=== PATIENT | female | born 1955 | race Caucasian/White ===

== ENCOUNTER 2020-05-10 11:11 | Emergency (ER) | payer MEDICAID, OTHER ==
--- OUTSIDE RECORDS SUMMARY | 2020-05-10 11:14 | XMS REPORT | Continuity of Care Document ---
:1955 Author Organization [facility] t Address [address] [place] [place] [address] Care Team Providers Name Role Phone Radiology Attending Clinician Unavailable Mark Hale MD Attending Clinician Dania HEART Attending Clinician Problems This patient has no known problems. Allergies, Adverse Reactions, Alerts This patient has no known allergies or adverse reactions. Medications This patient has no known medications. Procedures This patient has no known procedures. Encounters Start End Encounter Admission Attending Care Care Encounter Source Date/Time Date/Time Type Type Clinicians Facility Department ID 2020-03-28 2020-03-28 [facility] Radiology [facility] [id number] 19:24:00 23:59:00 Encounter SPECIALTY [id number] CARE [id number] CENTER AT [id number] [address] 2019-12-20 2020-01-23 Telemedicmitra Hale [facility] [id number] 08:48:31 15:03:17 ne Visit Nehemiah Flores [facility] [id number] [facility] [id number] CENTER [id number] [facility] 2020-01-23 2020-01-23 Telemedici Norberto [facility] [id number] 07:56:45 08:11:45 ne Visit SOLOMON abbott [id number] [facility] [id number] CENTER AT [phone] [address] Results This patient has no known results.
--- OUTSIDE RECORDS SUMMARY | 2020-05-10 11:14 | XMS REPORT | Summary of Care ---
:1955 Author Organization [facility] Address [address] [place] [id number] Care Team Providers Name Role Phone Seng Junior MD Unavailable Unavailable Mark Rebollar MD Insurance Hmo Pcp, Does Not Have A Primary Care Provider Reason for Referral Radiology Services (Routine) Status Reason Specialty Diagnoses / Referred By Referred To Procedures Contact Contact Closed Diagnostic Diagnoses Malignant neoplasm of left breast in female, estrogen receptor positive, unspecified site of breast Bridger, Lynn Radiology Procedures BI SCREENING MAMMOGRAM RIGHT M, 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 [address] [place] [address] Reason for Visit Radiology Services (Routine) Status Reason Specialty Diagnoses / Referred By Referred To Procedures Contact Contact Closed Diagnostic Diagnoses Malignant neoplasm of left breast in female, estrogen receptor positive, unspecified site of breast Bridger, Lynn Radiology Procedures BI SCREENING MAMMOGRAM RIGHT M, 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 [address] [place] [address] Encounter Details Date Type Department Care Team Description 03/28/2020 Hospital Encounter [facility] Radiology [facility] Breast [address] [facility] Imaging [place], [place] [id number] [address] [place] [address] Allergies Active Allergy Reactions Severity Noted Date Comments Codeine Rash 08/31/2009 Morphine Itching 06/18/2011 With morphine p ump documented as of this encounter (statuses as of 03/29/2020) Medications Medication Sig Dispensed Refills Start Date End Date Status fluticasone 50 Use 1 Holden in 16 g 2 06/04/2018 Active mcg/actuation nasal each nostril 2 sprayIndications: COPD (two) times exacerbation daily. albuterol (PROAIR HFA) Inhale 2 Puffs 8.5 g 2 01/11/2019 Active 90 mcg/actuation every 4 (four) inhalerIndications: hours as needed COPD exacerbation for Wheezing or Shortness of Breath. magnesium aspartate/vit Take by mouth. 0 Active B6/Zn (ZINC MAGNESIUM ASPARTATE ORAL) cyclobenzaprine 7.5 mg 0 04/06/2019 Active tablet Cholecalciferol, Take by mouth. 0 Active Vitamin D3, (VITAMIN D3) 5,000 unit tablet Cyanocobalamin (VITAMIN Take by mouth. 0 Active B-12) 1,000 mcg tablet zolpidem 10 mg Take 1 tablet by 30 tablet 5 06/28/2019 Active tabletIndications: mouth at bedtime. Anxiety diazePAM 2 mg Take 1 tablet by 10 tablet 0 06/28/2019 Active tabletIndications: mouth 2 (two) Anxiety times daily as needed for Anxiety. meloxicam 7.5 mg Take 1 tablet by 60 tablet 2 09/23/2019 Active tabletIndications: SI mouth 2 (two) (sacroiliac) joint times daily as dysfunction needed (Pain). ibuprofen (MOTRIN ORAL) Take 400 mg by 0 Active mouth. documented as of this encounter (statuses as of 03/29/2020) Active Problems Problem Noted Date SI (sacroiliac) joint dysfunction 09/26/2019 Overview: Added automatically from request for eric ellington [id number] Cervical spondylosis with radiculopathy 02/08/2019 Overview: Added automatically from request for eric ellington [id number] Anxiety 10/22/2018 Chronic fatigue 10/22/2018 History of breast cancer 04/23/2018 Cervical radiculopathy due to osteoarthritis of spine 03/26/2018 Overview: Added automatically from request for eric ellington [id number] Cervical radiculopathy 12/11/2017 Overview: Added automatically from request for eric ellington [id number] S/P total hip arthroplasty 03/31/2017 Left hip pain 02/26/2017 Overview: Added automatically from request for eric ellington [id number] Hip pain, acute, left 08/13/2016 S/P orthopedic surgery, follow-up exam 08/13/2016 Greater trochanteric bursitis of left hip 08/13/2016 Cataracts, both eyes 12/13/2015 Dry eye OU 12/13/2015 Lumbosacral spondylosis without myelopathy 07/31/2014 Sacroiliac joint dysfunction of both sides 07/03/2014 Myofacial muscle pain 07/03/2014 Acquired absence of breast and nipple 10/19/2012 Breast cancer 09/28/2012 Fracture, cause unspecified(E887) 11/05/2007 Overview: Left leg and back documented as of this encounter (statuses as of 03/29/2020) Immunizations Name Administration Dates Next Due Influenza Virus Vaccine Quad IM 3+ YRS 08/18/2018 documented as of this encounter Social History Tobacco Use Types Packs/Day Years Used Date Former Smoker Cigarettes 81 Quit: 09/21/19 13 Smokeless Tobacco: Never Used Alcohol Use Drinks/Week oz/Week Comments Yes only once weekly Sex Assigned at Date Recorded Not on file Job Start Date Occupation Industry Not on file Not on file Not on file Travel History Travel Start Travel End No recent travel history available. COVID-19 Exposure Response Date Recorded In the last month, have you been in contact with No / Unsure 03/28/2020 7:19 PM CDT someone who was confirmed or suspected to have Coronavirus / COVID-19? documented as of this encounter Last Filed Vital Signs Not on filedocumented in this encounter Plan of Treatment Date Type Specialty Care Team Description 07/26/2020 Office Visit Orthopedic Surgery Gera Mi, SLY [address] [place] [address] [phone] 11/30/2020 Office Visit Oncology Christine Fontanez, TRI [address] [place] [address] 77 [phone] Name Type Priority Associated Diagnoses Date/Ti me BI SCREENING MAMMOGRAM IMAGING Routine Malignant neoplasm of 03/28/2020 7:47 PM RIGHT left breast in female, CDT estrogen receptor positive, unspecified site of breast Name Type Priority Associated Diagnoses Order S chedule BI SCREENING MAMMOGRAM IMAGING Routine Malignant neoplasm of 1 Occurrences starting RIGHT left breast in female, 03/28 until estrogen receptor 03/28/2020 positive, unspecified site of breast Health Maintenance Due Date Last Done Comments HEPATITIS C (HCV) SCREEN 1955 PNEUMOCOCCAL 0-64 YEARS COMBINED 1962 SERIES (1 of 3 - PCV13) DTaP,Tdap,and Td Vaccines (1 - 12/31/1967 Tdap) Zoster Recombinant Vaccine 2006 (SHINGRIX) (1 of 2) PAP SMEAR 08/12/2010 08/12/2007, 11/25/2002 LUNG CANCER SCREEN: Recommended 04/16/2016 04/16/2015 for age 55-80 with 30 + pack year history Breast Cancer Screening 01/14/2020 01/13/2019, 12/18/2017, (MAMMOGRAM) 10/20/2016, Additional history exists INFLUENZA VACCINE (#1) 2020 08/18/2018 Depression Screening 10/19/2020 10/19/2019 COLONOSCOPY 09/30/2024 09/30/2014 documented as of this encounter Implants Implanted Type Area Commercial Construction Project Manager Device Shelf Model / Identifier Expiration Serial / Date Lot Breast Implant, Allergan Natrelle Smooth Silicone High Profile #20-350 - [id number] BREAST Left: Allergan 11/16/2016 20-350 / Implanted: Qty: 1 on 04/18/2013 by Rose Lee MD at [facility] Breast [id number] / Tissue Front Desk Team Member, [place] Tall Height Cont our Profile Siltex #[id number] - [id number] SUPERINTENDENT GENERATING PLANT Left: [place] [employer] 09/13/2016 [id number] / Implanted: Qty: 1 on 12/13/2012 by Faustina Avina MD at [facility] Chest [id number] / [id number] Femoral Stem Taperloc Porous Coated 14x1 48mm Standard Offset Type 1 Briana #[id number] - S0 Femoral Left: Hip Briana 11/07/2026 [id number] / Implanted: Qty: 1 on 03/31/2017 by Carlos Hickey MD at [facility] Stem 0 / [id number] Head Biolox Delta Biomet #650-1055 - S0 Head Left: Hip Biomet 12/23/2026 650- 1055 / Implanted: Qty: 1 on 03/31/2017 by Carlos Hickey MD at [facility] 0 / [id number] Insert, [place] Trident 0 X3 28mm Id #[id number] - S0 Insert Left: Hip [place] 07/24/2021 [id number] / Implanted: Qty: 1 on 03/31/2017 by Carlos Hickey MD at [facility] 0 / [id number] Screw, Synthes 7.3mm [place] 16mm Thrd/85mm #208.885 - [id number] REW Left: Hip Synthes 04/21/2026 208.885 / Implanted: Qty: 2 on 04/21/2016 by Michelle Eng DO at [facility] 0000 / [id number] Screw, Synthes 7.3mm [place] 16mm Thrd/90mm #208.890 - [id number] SCRE W Left: Hip Synthes 04/21/2026 208.890 / Implanted: Qty: 1 on 04/21/2016 by Michelle Eng DO at [facility] [id number] / [id number] Screw, [place] 6.5 Cancellous Bone 30mm #[id number] - S0 SCREW Left: Hip Genet 12/23/2021 [id number] / Implanted: Qty: 1 on 03/31/2017 by Carlos Hickey MD at [facility] 0 / [id number] Screw, [place] 6.5 Cancellous Bone 30mm #[id number] - S0 SCREW Left: Hip Genet 12/11/[id number] / Implanted: Qty: 1 on 03/31/2017 by Carlos Hickey MD at [facility] 0 / [id number] Shell, Genet Primary Tritanium Param Cluster #[id number] - S0 S hell Left: Hip [place] 10/08/2021 [id number] / Implanted: Qty: 1 on 03/31/2017 by Carlos Hickey MD at [facility] 0 / [id number] Washer, Synthes 13.0 Mm #219.99 #219.990 - [id number] WASHER Left: Hip Synthes 04/21/2026 219.990 / Implanted: Qty: 1 on 04/21/2016 by Michelle Eng, at [facility] 000 / 0000 Adapter Taper [place] Biomet #650-1066 - S0 Left: Hip Bio met 10/22/2026 650-1066 / Implanted: Qty: 1 on 03/31/2017 by Carlos Hickey MD at [facility] 0 / [id number] documented as of this encounter Results Not on filedocumented in this encounter Visit Diagnoses Diagnosis Malignant neoplasm of left breast in fem nathanael, estrogen receptor positive, unspecified site of breast documented in this encounter Insurance Payer Benefit Plan / Subscriber ID Effective Dates Phone Addre ss Type Group [facility] xxxxxxxxx 2019-Present Medicaid COMM PLAN - PLUS MANAGED MEDICAID documented as of this encounter Advance Directives Type Date Recorded 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
--- NOTE | 2020-05-10 11:38 | EDPHYS ---
Physician Documentation [facility] Name: Cindy Malin Age: 64 yrs Sex: Female : 1955 Arrival Date: 05/10/2020 Time: 11:13 Bed 18 Private MD: ED Physician Pancho Saldaña HPI: 05/10 11:33 This 64 yrs old Female presents to ER via Wheelchair with complaints of Back jr8 Pain. 11:33 The patient presents with pain that is acute, with no known mechanism of injury. The jr8 symptoms are located in the low back. Onset: The symptoms/episode began/occurred acutely, today. The pain does not radiate. Associated signs and symptoms: The patient has no apparent associated signs or symptoms. The problem was sustained from unknown cause. Modifying factors: The patient symptoms are alleviated by rest, specific position, sitting, the patient symptoms are aggravated by standing, walking. Severity of symptoms: At their worst the symptoms were moderate, in the emergency department the symptoms are unchanged. The patient has not experienced similar symptoms in the past. The patient has not recently seen a physician. 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 Started to have low back pain today that is not going away. Denies trauma or direct injury to back . Historical: - Allergies: 11:29 Codeine; sv - PMHx: 11:29 Back pain; Breast cancer; sv - PSHx: 11:29 Knee surgery; left hip; sv - Immunization history:: Adult Immunizations up to date. - Social history:: Smoking status: Patient reports the use of cigarette tobacco products, smokes one pack cigarettes per day. ROS: 11:33 Eyes: Negative for injury, pain, redness, and discharge, ENT: Negative for injury, jr8 pain, and discharge, Neck: Negative for injury, pain, and swelling, Cardiovascular: Negative for chest pain, palpitations, and edema, Respiratory: Negative for shortness of breath, cough, wheezing, and pleuritic chest pain, Abdomen/GI: Negative for abdominal pain, nausea, vomiting, diarrhea, and constipation, MS/Extremity: Negative for injury and deformity, Skin: Negative for injury, rash, and discoloration, Neuro: Negative for headache, weakness, numbness, tingling, and seizure. 11:33 Back: Positive for pain at rest, pain with movement, Negative for radiated pain. Exam: 11:33 Eyes: Pupils equal round and reactive to light, extra-ocular motions intact. Lids and jr8 lashes normal. Conjunctiva and sclera are non-icteric and not injected. Cornea within normal limits. Periorbital areas with no swelling, redness, or edema. ENT: Nares patent. No nasal discharge, no septal abnormalities noted. Tympanic membranes are normal and external auditory canals are clear. Oropharynx with no redness, swelling, or masses, exudates, or evidence of obstruction, uvula midline. Mucous membranes moist. Neck: Trachea midline, no thyromegaly or masses palpated, and no cervical lymphadenopathy. Supple, full range of motion without nuchal rigidity, or vertebral point tenderness. No Meningismus. Cardiovascular: Regular rate and rhythm with a normal S1 and S2. No gallops, murmurs, or rubs. Normal PMI, no JVD. No pulse deficits. Respiratory: Lungs have equal breath sounds bilaterally, clear to auscultation and percussion. No rales, rhonchi or wheezes noted. No increased work of breathing, no retractions or nasal flaring. Abdomen/GI: Soft, non-tender, with normal bowel sounds. No distension or tympany. No guarding or rebound. No evidence of tenderness throughout. Skin: Warm, dry with normal turgor. Normal color with no rashes, no lesions, and no evidence of cellulitis. MS/ Extremity: Pulses equal, no cyanosis. Neurovascular intact. Full, normal range of motion. Neuro: Awake and alert, GCS 15, oriented to person, place, time, and situation. Cranial nerves II-XII grossly intact. Motor strength 5/5 in all extremities. Sensory grossly intact. Cerebellar exam normal. Normal gait. 11:33 Back: pain, that is moderate, of the lumbar area and right low back, ROM is painful, normal spinal alignment noted, CVA tenderness, is absent, vertebral tenderness, is not appreciated, muscle spasm, is appreciated in the left low back and right low back. Vital Signs: 11:27 BP 152 / 96; Pulse 82; Resp 20; Temp 98.3; Pulse Ox 98% ; Weight 48.53 kg; Height 5 ft. sv 0 in. (152.40 cm); Pain 7/10; 11:27 Body Mass Index 20.90 (48.53 kg, 152.40 cm) sv MDM: 11:23 Patient medically screened. jr8 11:33 Data reviewed: vital signs, nurses notes, and as a result, I will discharge patient. jr8 Data interpreted: Pulse oximetry: on room air is 98 %. Interpretation: normal. Counseling: I had a detailed discussion with the patient and/or guardian regarding: the historical points, exam findings, and any diagnostic results supporting the discharge/admit diagnosis, the need for outpatient follow up, a orthopedic surgeon, to return to the emergency department if symptoms worsen or persist or if there are any questions or concerns that arise at home. ED course: Discussed with patient that we will put her on medication for low back. Patient stated that she has been having problems with left shoulder for a month as well. Directed her to ortho for further evaluation of that since it is not an emergent problem today . Administered Medications: 11:52 Drug: TORadol - Ketorolac 15 mg Route: IM; Site: right deltoid; sv 12:19 Follow up: Response: No adverse reaction sv Disposition: 18:36 Co-signature as Attending Physician, Pancho Saldaña MD. rn Disposition: 05/10/20 11:37 Discharged to Home. Impression: Low back pain, Muscle spasm of back. - Condition is Stable. - Discharge Instructions: Back Pain, Adult, Musculoskeletal Pain, Heat Therapy. - Prescriptions for Ibuprofen 800 mg Oral Tablet - take 1 tablet by ORAL route every 12 hours As needed take with food; 20 tablet. Robaxin 500 mg Oral Tablet - take 2 tablet by ORAL route every 6 hours As needed; 40 tablet. Medrol (Balaji) 4 mg Oral Tablets, Dose Pack - take 1 tablet by ORAL route as directed - follow package instructions; 1 packet. - Medication Reconciliation Form, Thank You Letter, Antibiotic Education, Prescription Opioid Use form. - Follow up: Jason Acuna MD; When: 5 - 6 days; Reason: Recheck today's complaints, Continuance of care, Re-evaluation by your physician. - Problem is new. - Symptoms have improved. Signatures: Jasmyn Lazo RN RN sv Pancho Saldaña MD MD rn Roszak, Josh, PA PA jr8 Corrections: (The following items were deleted from the chart) 12:20 11:37 05/10/2020 11:37 Discharged to Home. Impression: Low back pain; Muscle spasm of sv back. Condition is Stable. Forms are Medication Reconciliation Form, Thank You Letter, Antibiotic Education, Prescription Opioid Use. Follow up: Jason Acuna; When: 5 - 6 days; Reason: Recheck today's complaints, Continuance of care, Re-evaluation by your physician. Problem is new. Symptoms have improved. jr8
--- NOTE | 2020-05-10 11:38 | ER ---
Nurse's Notes [facility] Name: Cindy Malin Age: 64 yrs Sex: Female : 1955 Arrival Date: 05/10/2020 Time: 11:13 Bed 18 Private MD: Diagnosis: Low back pain;Muscle spasm of back Presentation: 05/10 11:27 Chief complaint: Patient states: left shoulder pain x 1 month after a fall and Back sv pain x1 day, denies recent falls. No meds taken. Coronavirus screen: Client denies travel out of the [place] in the last 14 days. At this time, the client does not indicate any symptoms associated with coronavirus-19. Ebola Screen: No symptoms or risks identified at this time. Initial Sepsis Screen: Does the patient meet any 2 criteria? No. Patient's initial sepsis screen is negative. Does the patient have a suspected source of infection? No. Patient's initial sepsis screen is negative. Risk Assessment: Do you want to hurt yourself or someone else? Patient reports no desire to harm self or others. Onset of symptoms was May 09, 2020. 11: Method Of Arrival: Wheelchair sv 11: Acuity: SHAMA 4 sv Triage Assessment: : General: Appears in no apparent distress. uncomfortable, slender, Behavior is calm, sv cooperative, appropriate for age. Pain: Complains of pain in back Pain currently is 7 out of 10 on a pain scale. Quality of pain is described as pressure, Pain began 1 day ago. Is continuous. Neuro: Level of Consciousness is awake, alert, obeys commands, Oriented to person, place, time, situation, Moves all extremities. Full function. Respiratory: Airway is patent Respiratory effort is even, unlabored, Respiratory pattern is regular, symmetrical. Derm: Skin is pink, warm \T\ dry. Musculoskeletal: Range of motion: limited in left shoulder. Historical: - Allergies: 11: Codeine; sv - PMHx: 11: Back pain; Breast cancer; sv - PSHx: 11: Knee surgery; left hip; sv - Immunization history:: Adult Immunizations up to date. - Social history:: Smoking status: Patient reports the use of cigarette tobacco products, smokes one pack cigarettes per day. Screenin:30 Abuse screen: Denies threats or abuse. Denies injuries from another. Nutritional sv screening: No deficits noted. Tuberculosis screening: No symptoms or risk factors identified. Fall Risk Fall in past 12 months (25 points). No secondary diagnosis (0 pts). No IV (0 pts). Ambulatory Aid- None/Bed Rest/Nurse Assist (0 pts). Gait- Normal/Bed Rest/Wheelchair (0 pts) Mental Status- Oriented to own ability (0 pts). Total Mathis Fall Scale indicates Low Risk Score (25-44 pts). Fall prevention measures have been instituted. Placed close to Nursing Station Frequent Obs/Assesments occuring As available Patient and Family Educated on Fall Prevention Program and strategies. Assessment: 12:19 Reassessment: Patient appears in no apparent distress at this time. Patient and/or sv family updated on plan of care and expected duration. Pain level reassessed. Patient is alert, oriented x 3, equal unlabored respirations, skin warm/dry/pink. Vital Signs: 11:27 BP 152 / 96; Pulse 82; Resp 20; Temp 98.3; Pulse Ox 98% ; Weight 48.53 kg; Height 5 ft. sv 0 in. (152.40 cm); Pain 7/10; 11:27 Body Mass Index 20.90 (48.53 kg, 152.40 cm) sv ED Course: 11:13 Patient arrived in ED. as 11:20 Jasmyn Lazo, NARDA is Primary Nurse. sv 11:20 Dillon Ring PA is PHCP. jr8 11:20 Pancho Saldaña MD is Attending Physician. jr8 11:28 Triage completed. sv 11:29 Arm band placed on. sv 11:30 Nurse Practitioner and/or Physician Field Control Inspector to see patient. sv 11:31 Patient has correct armband on for positive identification. Call light in reach. Pulse sv ox on. NIBP on. 11:37 Jason Acuna MD is Referral Physician. jr8 12:19 No provider procedures requiring assistance completed. Patient did not have IV access sv during this emergency room visit. Administered Medications: 11:52 Drug: TORadol - Ketorolac 15 mg Route: IM; Site: right deltoid; sv 12:19 Follow up: Response: No adverse reaction sv Outcome: 11:37 Discharge ordered by . jr8 12:19 Discharged to home via wheelchair, with family. sv 12:19 Condition: stable 12:19 Discharge instructions given to patient, Instructed on discharge instructions, follow up and referral plans. no drinking with medication, no driving heavy equipment, medication usage, Demonstrated understanding of instructions, follow-up care, medications, Prescriptions given X 3. 12:20 Patient left the ED. sv Signatures: Jasmyn Lazo RN RN Elvira Méndez Josh, PA PA jr8 Corrections: (The following items were deleted from the chart) 11:30 11:27 Chief complaint: Patient states: left shoulder pain x 1 month after a fall and sv Back pain x1 day. No meds taken. sv
[2020-05-10] MEDS ORDERED: KETOROLAC 30 MG/ML INJ ONE (12:00)
[2020-05-14 23:24] VITALS: BP 152/96; TEMP 98.3; O2SAT 98
== END 2020-05-10 12:20 | disposition home or self-care (01) ==
LOC: ER 11:11
DX: M62.830 Muscle spasm of back (principal); F17.210 Nicotine dependence, cigarettes, uncomplicated; Z88.5 Allergy status to narcotic agent; Z85.3 Personal history of malignant neoplasm of breast
CPT/HCPCS: 96372; 99283

== ENCOUNTER 2023-03-15 11:56 | Emergency (ER) | payer OTHER ==
--- OUTSIDE RECORDS SUMMARY | 2023-03-15 11:59 | XMS REPORT | Continuity of Care Document ---
:1955 Author Organization [facility] t Address [address] [place] [address] [address] [place] [address] Care Team Providers Name Role Phone CHIVO FRENCH Primary Care Physician Unavailable Doctor Unassigned, [place] Attending Clinician Unavailable ERNST OLIVAS Attending Clinician Unavailable Ernst Olivas MD Attending Clinician MARY KAY HARRISON Attending Clinician Unavailable Mary Kay Harrison MD Attending Clinician Gera Hancock Attending Clinician [phone] GERA SOTOMAYOR Attending Clinician Unavailable Radiology Attending Clinician Unavailable RADIOLOGY Attending Clinician Unavailable Babita Marrufo DO Attending Clinician Shila Hale MD Attending Clinician SHILA HALE Attending Clinician Unavailable LYNN DE PAZ Attending Clinician Unavailable Lynn De Paz NP Attending Clinician Mehnaz Stovall MD Attending Clinician Bentley Rebollar MD Attending Clinician ERNST OLIVAS Admitting Clinician Unavailable GERA SOTOMAYOR Admitting Clinician Unavailable Shila Hale MD Admitting Clinician LYNN DE PAZ Admitting Clinician Unavailable Payers Payer Name Policy Type Policy Number Effective Date Expiration Date Darrell denise [facility] [id number] 2019 00:00:00 [facility] [id number] 2011 MEDICAID 00:00:00 Problems Condition Condition Condition Status Onset Resolution Last Treating Co mments Source Name Details Category Date Date Treatment Clinician Date SI SI Disease Active Overview: Univer s (sacroilia (sacroilia 1-13 Formattin ity of c) joint c) joint 00:00: g of this [place] as dysfunctio dysfunctio 00 note Me dical n n might be Branch different from the original. Added automatic ally from request for surgery [id number] Cervical Cervical Disease Active Overview: Un pablito spondylosi spondylosi 5-28 Formattin ity of s with s with 00:00: g of this [place] radiculopa radiculopa 00 note Me dical thy thy might be Branch different from the original. Added automatic ally from request for surgery [id number] Anxiety Anxiety Disease Active Univers 2-08 ity of 00:00: [place] 00 Medical Branch Chronic Chronic Disease Active Univers fatigue fatigue 2-08 ity of 00:00: [place] 00 Medical Branch History of History of Disease Active U nivers breast breast 8-10 ity of cancer cancer 00:00: [place] 00 Medical Branch Cervical Cervical Disease Active Overview: Un pablito radiculopa radiculopa 7-13 Formattin ity of thy due to thy due to 00:00: g of this [place] osteoarthr osteoarthr 00 note Me dical itis of itis of might be Branch spine spine different from the original. Added automatic ally from request for surgery [id number] Cervical Cervical Disease Active Overview: Un pablito radiculopa radiculopa 3-30 Formattin ity of thy thy 00:00: g of this [place] 00 note Medical might be Branch different from the original. Added automatic ally from request for surgery [id number] S/P total S/P total Disease Active Uni vers hip hip 7-18 ity of arthroplas [place]plas [place] 00 Medical Branch Left hip Left hip Disease Active Overview: Un pablito pain pain 6-15 Formattin ity of 00:00: g of this [place] 00 note Medical might be Branch different from the original. Added automatic ally from request for surgery [id number] Hip pain, Hip pain, Disease Active 2015-09 Uni vers acute, acute, 1-30 ity of left left 00:00: [place] 00 Medical Branch S/P S/P Disease Active 2015-09 Univers orthopedic orthopedic 10-13 it y of surgery, surgery, 00:00: [place] follow-up follow-up 00 Medi brandt exam exam Branch Greater Greater Disease Active 2015-09 Univers trochanter trochanter 10-13 it y of ic ic 00:00: [place] bursitis bursitis 00 Medica l of left of left Branch hip hip Cataracts, Cataracts, Disease Active U nivers both eyes both eyes 3-31 ity of 00:00: [place] 00 Medical Branch Dry eye OU Dry eye OU Disease Active U nivers 3-31 ity of 00:00: [place] Medical Branch Lumbosacra Lumbosacra Disease Active 2013-09 U nivers l l 1-17 ity of spondylosi spondylosi [place] without s without 00 Medi brandt myelopathy myelopathy Br anch Sacroiliac Sacroiliac Disease Active 2013-09 U nivers joint joint 0-20 ity of dysfunctio dysfunctio 00:[place] of both n of both 00 Medi brandt sides sides Branch Myofacial Myofacial Disease Active 2013-09 Uni vers muscle muscle 0-20 ity of pain pain 00:00: [place] Medical Branch Acquired Acquired Disease Active Unive rs absence of absence of 2-05 it y of breast and breast and 00:[place] nipple nipple 00 Medical Branch Breast Breast Disease Active Univers cancer cancer 1-15 ity of 00:00: [place] Medical Branch Fracture, Fracture, Disease Active Overview: Univers cause cause 2-22 Formattin ity of unspecifie unspecifie 00:00: g of this [place] d(E887) d(E887) 00 note Medical might be Branch different from the original. Left leg and back Allergies, Adverse Reactions, Alerts Allergy Allergy Status Severity Reaction(s) Onset Inactive Treating Comm ents Source Name Type Date Date Clinician Morphine Propensi Active Itching 2010-09 With Unive rs ty to 0-05 morphine ity of adverse 00:00: pump [place] reaction 00 Medical s Branch MORPHINE DRUG Active ITCHING 2010-09 Univers INGREDI 0-05 ity of 00:00: [place] 00 Medical Branch Codeine Propensi Active Rash 2008-09 Univers ty to 2-18 ity of adverse 00:00: [place] reaction 00 Medical s Branch CODEINE DRUG Active Rash 2008-09 Univers INGREDI 2-18 ity of 00:00: [place] 00 Medical Branch Social History Social Habit Start Date Stop Date Quantity Comments Source History SDOH University o f Alcohol Frequency [facility] edical Branch History SDWI University o f Alcohol Std [place] Medical Drinks Branch History SDWI University o f Alcohol Binge [place] Medic al Branch Exposure to 2022-04-15 2022-04-25 Not sure University of SARS-CoV-2 00:00:00 16:01:00 [facility] (event) Branch Alcohol intake 2021-10-19 2021-10-19 Current drinker Unive rsity of 00:00:00 00:00:00 of alcohol [facility] (finding) Branch Tobacco use and 2019-05-20 2019-05-20 Smokeless tobacco Un iversity of exposure 00:00:00 00:00:00 non-user [facility] History of 2012-09-21 Cigarette Smoker Universi ty of tobacco use 00:00:00 [facility] Alcohol Comment 2009-10-22 2009-10-22 only once monthly Un iversity of 00:00:00 00:00:00 [facility] Sex [birth year] Universit y of 00:00:00 00:00:00 [facility] Smoking Status Start Date Stop Date Source Ex-smoker 2019-05-20 00:00:00 2019-05-20 00:00:00 Universi ty of [facility] Medications Ordered Filled Start Stop Current Ordering Indication Dosage Frequency Signature Comments Components Source Medication Medication Date Date Medication? Clinician (SIG) Name Name ondansetron No 4mg 4 mg, Slow Univers (ZOFRAN 04-25 IV Push, ity of (PF)) 23:15: 23:12 ONCE, 1 [place] injection 4 00 :00 dose, On Medi brandt mg Fri Branch 04/25/22 at 1815, MAIKOL ketorolac 2021-0 2021- No 30mg 30 mg, Unive rs (TORADOL) 10-15 Slow IV ity of injection 12:30: 11:24 Push, [place] 30 mg 00 :00 ONCE, 1 Medical dose, On Branch Thu10/15/21 at 0630, MAIKOL FENTanyl PF 2021- No 50ug 50 mcg, Un pablito (SUBLIMAZE 10-15 Slow IV ity o f (PF)) 11:45: 10:51 Push, [place] injection 00 :00 ONCE, 1 Medical 50 mcg dose, On Branch Thu10/15/21 at 0545, Routine diazePAM 2021- No 5mg 5 mg, Slow Un pablito (VALIUM) 10-15 IV Push, ity of injection 5 11:45: 10:52 ONCE, 1 [place] mg 00 :00 dose, On Medical e 10/15/21 Branch at 0545, STAT gabapentin 2021-0 Yes [id number] 300mg Take 1 Univers 300 mg 2-01 capsule by ity of capsule 00:00: mouth 3 [place] 00 (three) Medical times Branch daily. methocarbam 2021-0 Yes [id number] 500mg Take 1 Univers oL 2-01 tablet by ity of (ROBAXIN) 00:00: mouth [place] 500 mg 00 every 6 Medical tablet (six) Branch hours as needed for Pain (scale 7-10) (MUSCLE SPASM). gabapentin 2021-0 Yes [id number] 300mg Take 1 Univers 300 mg 2-01 capsule by ity of capsule 00:00: mouth 3 [place] 00 (three) Medical times Branch daily. methocarbam 2022-0 Yes [id number] 500mg Take 1 Univers oL 2-01 tablet by ity of (ROBAXIN) 00:00: mouth [place] 500 mg 00 every 6 Medical tablet (six) Branch hours as needed for Pain (scale 7-10) (MUSCLE SPASM). gabapentin 2022-0 Yes [id number] 300mg Take 1 Univers 300 mg 2-01 capsule by ity of capsule 00:00: mouth 3 [place] 00 (three) Medical times Branch daily. methocarbam 2022-0 Yes [id number] 500mg Take 1 Univers oL 2-01 tablet by ity of (ROBAXIN) 00:00: mouth [place] 500 mg 00 every 6 Medical tablet (six) Branch hours as needed for Pain (scale 7-10) (MUSCLE SPASM). alendronate 2020-09 Yes 70mg Take 1 Univ ers 70 mg 2-07 tablet by ity of tablet 00:00: mouth [place] 00 weekly. Medical Branch alendronate 2020-09 Yes 70mg Take 1 Univ ers 70 mg 2-07 tablet by ity of tablet 00:00: mouth [place] 00 weekly. Medical Branch alendronate 2020-09 Yes 70mg Take 1 Univ ers 70 mg 2-07 tablet by ity of tablet 00:00: mouth [place] 00 weekly. Medical Branch alendronate 2020-09 Yes 70mg Take 1 Univ ers 70 mg 2-07 tablet by ity of tablet 00:00: mouth [place] 00 weekly. Medical Branch gabapentin 2020-09- No [id number] 300mg Take 1 Univers 300 mg 10-01-19 capsule by ity of capsule 00:00: 05:59 mouth 2 [place] 00 :00 (two) Medical times Branch daily for 30 days. magnesium 2020-0 Yes Take by Unive rs aspartate/v 2-05 mouth. ity of it B6/Zn 13:38: [place] (ZINC 34 Medical MAGNESIUM Branch ASPARTATE ORAL) Cholecalcif 2020-0 Yes Take by Uni vers alfred, 2-05 mouth. ity of Vitamin D3, 13:38: [place] (VITAMIN 34 Medical D3) 5,000 Branch unit tablet Cyanocobala 2020-0 Yes Take by Uni vers min 2-05 mouth. ity of (VITAMIN 13:38: [facility]-) 1,000 34 Medical mcg tablet Branch ibuprofen 2020-0 Yes 400mg Take 400 Uni vers (MOTRIN 2-05 mg by ity of ORAL) 13:38: mouth. [place] 34 Medical Branch magnesium 2020-0 Yes Take by Unive rs aspartate/v 2-05 mouth. ity of it B6/Zn 13:38: [place] (ZINC 34 Medical MAGNESIUM Branch ASPARTATE ORAL) Cholecalcif 2020-0 Yes Take by Uni vers alfred, 2-05 mouth. ity of Vitamin D3, 13:38: [place] (VITAMIN 34 Medical D3) 5,000 Branch unit tablet Cyanocobala 2020-0 Yes Take by Uni vers min 2-05 mouth. ity of (VITAMIN 13:38: [place] B-12) 1,000 34 Medical mcg tablet Branch ibuprofen 2020-0 Yes 400mg Take 400 Uni vers (MOTRIN 2-05 mg by ity of ORAL) 13:38: mouth. [place] [address] Medical Branch magnesium 2020-0 Yes Take by Unive rs aspartate/v 2-05 mouth. ity of it B6/Zn 13:38: [place] (ZINC 34 Medical MAGNESIUM Branch ASPARTATE ORAL) Cholecalcif 2020-0 Yes Take by Uni vers alfred, 2-05 mouth. ity of Vitamin D3, 13:38: [place] (VITAMIN 34 Medical D3) 5,000 Branch unit tablet Cyanocobala 2020-0 Yes Take by Uni vers min 2-05 mouth. ity of (VITAMIN 13:38: [place] B-12) 1,000 34 Medical mcg tablet Branch ibuprofen 2020-0 Yes 400mg Take 400 Uni vers (MOTRIN 2-05 mg by ity of ORAL) 13:38: mouth. [place] [address] Medical Branch magnesium 2020-0 Yes Take by Unive rs aspartate/v 2-05 mouth. ity of it B6/Zn 13:38: [place] (ZINC 34 Medical MAGNESIUM Branch ASPARTATE ORAL) Cholecalcif 2020-0 Yes Take by Uni vers alfred, 2-05 mouth. ity of Vitamin D3, 13:38: [place] (VITAMIN 34 Medical D3) 5,000 Branch unit tablet Cyanocobala 2020-0 Yes Take by Uni vers min 2-05 mouth. ity of (VITAMIN 13:38: [place] B-12) 1,000 34 Medical mcg tablet Branch ibuprofen 2020-0 Yes 400mg Take 400 Uni vers (MOTRIN 2-05 mg by ity of ORAL) 13:38: mouth. [address] Branch meloxicam 2020-0 Yes [id number] 7.5mg Take 1 Univers 7.5 mg 1-10 tablet by ity of tablet 00:00: mouth 2 (two) Medical times Branch daily as needed (Pain). meloxicam 2020-0 Yes [id number] 7.5mg Take 1 Univers 7.5 mg 1-10 tablet by ity of tablet 00:00: mouth 2 (two) Medical times Branch daily as needed (Pain). meloxicam 2020-0 Yes [id number] 7.5mg Take 1 Univers 7.5 mg 1-10 tablet by ity of tablet 00:00: mouth 2 (two) Medical times Branch daily as needed (Pain). meloxicam 2020-0 Yes [id number] 7.5mg Take 1 Univers 7.5 mg 1-10 tablet by ity of tablet 00:00: mouth 2 (two) Medical times Branch daily as needed (Pain). zolpidem 2018-09 Yes [id number] 10mg Take 1 Univers mg tablet 0-15 tablet by ity o f 00:00: mouth at [place] bedtime. Medical Branch diazePAM 2 2018-09 Yes [id number] 2mg Take 1 U nivers mg tablet 0-15 tablet by ity o f 00:00: mouth 2 (two) Medical times Branch daily as needed for Anxiety. zolpidem 2018-09 Yes [id number] 10mg Take 1 Univers mg tablet 0-15 tablet by ity o f 00:00: mouth at [place] bedtime. Medical Branch diazePAM 2018-09 Yes [id number] 2mg Take 1 U nivers mg tablet 0-15 tablet by ity o f 00:00: mouth 2 (two) Medical times Branch daily as needed for Anxiety. zolpidem 2018-09 Yes [id number] 10mg Take 1 Univers mg tablet 0-15 tablet by ity o f 00:00: mouth at [place] bedtime. Medical Branch diazePAM 2 2018-09 Yes [id number] 2mg Take 1 U nivers mg tablet 0-15 tablet by ity o f 00:00: mouth 2 (two) Medical times Branch daily as needed for Anxiety. zolpidem 2018-09 Yes [id number] 10mg Take 1 Univers mg tablet 0-15 tablet by ity o f 00:00: mouth at [place] bedtime. Medical Branch diazePAM 2018-09 Yes [id number] 2mg Take 1 U nivers mg tablet 0-15 tablet by ity o f 00:00: mouth 2 (two) Medical times Branch daily as needed for Anxiety. cyclobenzap Yes Univer s rine 7.5 mg 7-24 ity of tablet 00:00: [place] 00 Medical Branch cyclobenzap Yes Univer s rine 7.5 mg 7-24 ity of tablet 00:00: 00 Medical Branch cyclobenzap Yes Univer s rine 7.5 mg 7-24 ity of tablet 00:00: 00 Medical Branch cyclobenzap Yes Univer s rine 7.5 mg 7-24 ity of tablet 00:00: [place] 00 Medical Branch albuterol Yes [id number] 2{puff} Inhale 2 Univers (PROAIR 4-30 Puffs ity of HFA) 90 00:00: every 4 [place] mcg/actuati 00 (four) Medica l on inhaler hours as Branc h needed for Wheezing or Shortness of Breath. albuterol Yes [id number] 2{puff} Inhale 2 Univers (PROAIR 4-30 Puffs ity of HFA) 90 00:00: every 4 [place] mcg/actuati 00 (four) Medica l on inhaler hours as Branc h needed for Wheezing or Shortness of Breath. albuterol Yes [id number] 2{puff} Inhale 2 Univers (PROAIR 4-30 Puffs ity of HFA) 90 00:00: every 4 [place] mcg/actuati 00 (four) Medica l on inhaler hours as Branc h needed for Wheezing or Shortness of Breath. albuterol Yes [id number] 2{puff} Inhale 2 Univers (PROAIR 4-30 Puffs ity of HFA) 90 00:00: every 4 [place] mcg/actuati 00 (four) Medica l on inhaler hours as Branc h needed for Wheezing or Shortness of Breath. fluticasone Yes [id number] 1{spray Use 1 Univers 50 9-21 } [place] in ity of mcg/actuati 00:00: each [place] on nasal 00 nostril 2 Medica l spray (two) Branch times daily. fluticasone Yes [id number] 1{spray Use 1 Univers 50 9-21 } [place] in ity of mcg/actuati 00:00: each [place] on nasal 00 nostril 2 Medica l spray (two) Branch times daily. fluticasone Yes 1{spray Use 1 Univers 50 9-21 } [place] in ity of mcg/actuati 00:00: each [place] on nasal 00 nostril 2 Medica l spray (two) Branch times daily. fluticasone Yes 1{spray Use 1 Univers 50 9-21 } [place] in ity of mcg/actuati 00:00: each [place] on nasal 00 nostril 2 Medica l spray (two) Branch times daily. Immunizations Ordered Filled Immunization Date Status Comments Sour e Immunization Name Name Influenza Virus 2018-08-18 Completed Universit y of Vaccine Quad IM 3+ 00:00:00 [facility] Influenza Virus 2018-08-18 Completed Universit y of Vaccine Quad IM 3+ 00:00:00 [facility] Influenza Virus 2018-08-18 Completed Universit y of Vaccine Quad IM 3+ 00:00:00 [facility] Branch Influenza Virus 2018-08-18 Completed Universit y of Vaccine Quad IM 3+ 00:00:00 [facility] Vital Signs Vital Name Observation Time Observation Value Comments Source Systolic blood 2022-04-26 00:30:00 130 mm[Hg] Univer sity of pressure [facility] Diastolic blood 2022-04-26 00:30:00 78 mm[Hg] Unive rsity of [facility] Heart rate 2022-04-26 00:30:00 98 /min [facility] Respiratory rate 2022-04-26 00:30:00 18 /min [facility] Oxygen saturation in 2022-04-26 00:30:00 97 /min [facility] Arterial blood by [place] [facility] Pulse oximetry [place] Body temperature 2022-04-25 23:30:00 36 Martha [facility] Body height 2022-04-25 21:03:00 149.9 cm [facility] Body weight 2022-04-25 21:03:00 54.432 kg [facility] BMI 2022-04-25 21:03:00 24.24 kg/m2 [facility] Systolic blood 2021-10-15 10:24:00 153 mm[Hg] Univer sity of [facility] Diastolic blood 2021-10-15 10:24:00 86 mm[Hg] Unive rsity of pressure [facility] Heart rate 2021-10-15 10:24:00 115 /min [facility] Body temperature 2021-10-15 10:24:00 35.94 Martha [facility] 2021-10-15 10:24:00 20 /min [facility] Body height 2021-10-15 10:24:00 147.3 cm [facility] Body weight 2021-10-15 10:24:00 49.896 kg [facility] BMI 2021-10-15 10:24:00 22.99 kg/m2 [facility] Oxygen saturation in 2021-10-15 10:24:00 92 /min [facility] Arterial blood by [place] [facility] Pulse oximetry Branch Procedures Procedure Date / Time Performing Clinician Source Performed AUTHORIZATION FOR 2022-05-21 05:01:00 Doctor Unassyanet, No [facility] RELEASE OF PHI Name [facility] CT CERVICAL SPINE WO 2022-04-26 00:00:00 Ernst Olivas [facility] itreynold [facility] CONTRAST [facility] CT LUMBAR SPINE WO 2022-04-26 00:00:00 [facility] [place] CONTRAST [facility] CT THORACIC SPINE WO 2022-04-26 00:00:00 [facility] Start End Encounter Admission Attending Care Care Encounter Source Date/Time Date/Time Type Type Clinicians Facility Department ID 2021-07-14 Emergency [facility] [id number] Univers 07:52:30 ity of [facility] 2022-05-21 2022-05-21 Orders Doctor KIRBY [id number] Univers 00:00:00 00:00:00 Only Unassigned, HANNAH [id number] ity of [place] [facility] [id number] [facility] [id number] [facility] 009 Branch 2022-04-25 2022-04-25 Emergency [facility] [id number] Univers 16:05:00 20:41:00 ERNST ity [facility] 2022-04-25 2022-04-25 [facility] [id number] Univers 16:05:00 20:41:00 Ernst WOODY [id number] i ty [facility] [id number] [facility] [id number] [facility] 084 Branch 2021-10-15 2021-10-15 Emergency X HUNTER [facility] ERT [id number] Univers 04:26:00 05:53:00 MARY KAY ity of [facility] 2021-10-15 2021-10-15 Emergency Hunter [facility] [id number] Univers 04:26:00 05:53:00 Angiletakelly Darrell SMILAX [id number] ity of [place] [id number] [facility] [id number] [facility] 084 [place] 2021-08-19 2021-08-19 Telephone [facility] [id number] Univers 00:00:00 00:00:00 scar SPECIALTY [id number] ity of [facility] [id number] [facility] [place] AT [id number] Ct kev MTZ 198 [facility] 2021-08-16 2021-08-16 Outpatient R [facility] [place] [id number] Univers 13:09:18 23:59:00 dakota ABBOTT [facility] 2021-08-16 2021-08-16 [facility] [id number] Univers 13:09:18 23:59:00 Encounter SOLOMON abbott [id number] ity of [facility] [id number] [facility] AT [id number] Ct kev MTZ 800 [facility] 2021-08-16 2021-08-16 Outpatient R [facility] [id number] Univers 13:09:18 23:59:00 dakota ABBOTT [facility] 2021-08-01 2021-08-01 Outpatient R [facility] [id number] Univers 10:40:00 10:49:20 dakota ABBOTT [facility] 2021-08-01 2021-08-01 Office [facility] [id number] Univers 10:30:15 10:49:20 Visit crystalon, SPECIALTY [id number] ity of [place] [id number] [place] AT [id number] Ct kev MTZ 198 [facility] 2021-08-01 2021-08-01 Orders Doctor MIRTA [id number] Univers 00:00:00 00:00:00 Only Unassigned, HANNAH [id number] ity of [place] [facility] [id number] [place] as [id number] [address] 2021-04-18 2021-04-18 [facility] [id number] Univers 15:08:12 23:59:00 Encounter crystalon, SPECIALTY [id number] ity of [place] [id number] [place] AT [id number] Ct kev MTZ 809 [facility] 2021-04-18 2021-04-18 Office [facility] [id number] Univers 14:38:07 15:39:44 Visit crystalon, SPECIALTY [id number] ity of [place] [id number] [place] AT [id number] Ct kev MTZ 198 [facility] 2021-04-18 2021-04-18 [facility] [id number] Univers 15:06:23 15:07:00 Encounter caseyumon, SPECIALTY [id number] ity of [place] [id number] [place] AT [id number] Ct kev MTZ 809 [facility] 2021-04-18 2021-04-18 Outpatient R [facility] [id number] Univers 14:15:00 14:15:00 SCAR ity of [place]IBI [facility] 2021-04-09 2021-04-09 Hospital Radiology [facility] [id number] Univers 16:03:59 23:59:00 Encounter SPECIALTY [id number] ity of C[place] [id number] [place] AT [id number] Ct kev MTZ 800 [facility] 2021-04-09 2021-04-09 Outpatient R RADIOLOGY [facility] [id number] Univers 00:00:00 00:00:00 ity of [facility] 2021-03-18 2021-03-18 Outpatient R [facility] [id number] Univers 09:00:00 09:00:00 dakota ABBOTT [facility] 2021-03-05 2021-03-05 Outpatient R [facility] [id number] Univers 10:40:00 10:40:00 dakota ABBOTT of [facility] 2020-12-11 2020-12-11 [facility] [id number] Univers 13:19:06 23:59:00 Encounter scar, SPECIALTY [id number] [facility] [id number] [facility] C[facility] AT [id number] Ct kev MTZ 803 [facility] 2020-12-11 2020-12-11 Outpatient R [facility] [id number] Univers 00:00:00 00:00:00 dakota ABBOTT [facility] 2020-12-04 2020-12-04 Emergency [facility] 1.2.840.114 [id number] Univers 11:41:00 12:46:00 Babita Woody [id number] ity [facility] [id number] [place] [id number] [facility] 084 [place] 2020-11-22 2020-11-22 Telephone [facility] [id number] Univers 00:00:00 00:00:00 scar, SPECIALTY [id number] [facility] [id number] AT [id number] Ct kev MTZ 198 [facility] 2020-07-26 2020-07-26 Office [facility] [id number] Univers 10:45:33 16:27:04 Visit scar, SOLOMON [id number] ity of [facility] CARE [id number] [place] AT [id number] Ct dical BIBI 198 [facility] 2020-07-26 2020-07-26 Outpatient R [facility] [id number] Univers 10:45:00 10:45:00 SCAR, ity of [facility] 2020-07-26 2020-07-26 Orders Doctor MIRTA [id number] Univers 00:00:00 00:00:00 Only Unassigned, HANNAH [id number] ity of [place] [facility] [id number] Thierno as [phone] [address] 2020-03-28 2020-03-28 [facility] Radiology [facility] 1.2.840.114 [id number] 19:24:00 23:59:00 Encounter SPECIALTY 350.1.13.10 CARE 4.2.7.2.686 CENTER AT [phone] MARY 800 [facility] 2020-03-28 2020-03-28 [facility] Radiology [facility] 1.2.840.114 [id number] Univers 19:24:00 23:59:00 Encounter SPECIALTY 350.1.13.10 [place] AT [phone] Ct artiemarianne MTZ 800 [facility] 2020-03-28 2020-03-28 Outpatient R RADIOLOGY [facility] [id number] Univers 19:24:09 19:24:09 ity of [facility] 2019-12-20 2020-01-23 [facility] 1.2.840.114 [id number] 08:48:31 15:03:17 ne Visit Shila Flores MULTISPEC 350.1.13.10 IALTY 4.2.7.2.686 CENTER [phone] AND [facility] 2019-12-20 2020-01-23 [facility] 1.2.840.114 [id number] Univers 08:48:31 15:03:17 ne Visit Shila Flores MULTISPEC 350.1.13.10 [place] [phone] [facility] AND DIEZ [address] [place] [facility] 2020-01-23 2020-01-23 Outpatient R ROXY-KU [facility] [id number] Univers 14:45:00 14:45:00 gloria ABBOTTy of SHIBI [facility] 2020-01-23 2020-01-23 Telemedici [facility] 1.2.840.114 [id number] 07:56:45 08:11:45 ne Visit SOLOMON abbott 350.1.13.10 [facility] 4.2.7.2.686 CENTER AT [phone] BIBI Mercedes [facility] 2020-01-23 2020-01-23 Telemedici [facility] 1.2.840.114 [id number] Univers 07:56:45 08:11:45 ne Visit SOLOMON abbott 350.1.13.10 ity of [facility] 4.2.7.2.686 [facility] AT [phone] Ct kev [address] 2019-12-20 2019-12-20 Outpatient R ALEXIA [facility] [id number] Univers 15:30:00 15:30:00 SHILA duncan of [facility] 2019-12-07 2019-12-07 [facility] [id number] Univers 14:00:00 14:00:00 LYNN abad [facility] 2019-12-01 2019-12-01 [facility] [place] 1.2.971.684 [id number] Univers 00:00:00 00:00:00 Management Lynn Araiza 350.1.13.10 ity of BUILDING 4.2.7.2.686 Th[place] as [phone] [facility] [address] 2019-11-24 2019-11-24 Outpatient Eh DE PAZ [facility] [id number] Univers 14:00:00 14:00:00 LYNN abad [facility] 2019-11-07 2019-11-07 [facility] 1.2.840.114 [id number] Univers 14:57:00 23:59:00 Encounter Shila Flores SPECIALTY 350.1.13.10 [place] AT [phone] Ct artiemarianne MTZ 807 [facility] 2019-11-07 2019-11-07 [facility] 1.2.840.114 [id number] Univers 14:55:00 14:56:00 Encounter crystalon, SPECIALTY 350.1.13.10 ity of [place] AT [phone] Ct artiemarianne MTZ 807 [facility] 2019-11-07 2019-11-07 Outpatient R [facility] [id number] Univers 14:55:26 14:55:26 SCAR, ity of [facility] 2019-10-27 2019-10-27 Outpatient R [facility] [id number] Univers 13:41:07 23:59:00 [facility] of [facility] 2019-10-27 2019-10-27 Outpatient R [facility] [id number] Univers 13:41:07 23:59:00 MELAMONT, ity [facility] 2019-10-27 2019-10-27 [facility] 1.2.840.114 [id number] Univers 13:41:00 23:59:00 Encounter scar, SPECIALTY 350.1.13.10 ity of [place] AT [phone] Ct artiemarianne MTZ 809 [facility] 2019-10-27 2019-10-27 [facility] 1.2.840.114 [id number] Univers 12:21:17 14:26:20 Visit scar, SPECIALTY 350.1.13.10 ity of [place] AT [phone] Ct artiemarianne HERNANDEZReynold 198 [facility] 2019-10-20 2019-10-20 [facility]phone [facility] 1.2.840.114 [id number] Univers 00:00:00 00:00:00 Mehnaz SPECIALTY 350.1.13.10 [place] AT [phone] Ct kev Mitchell [facility] 2019-10-19 2019-10-19 Orders Doctor MIRTA 1.2.840.114 [id number] Univers 00:00:00 00:00:00 Only Unassigned, HANNAH 350.1.13.10 ity of [facility] 4.2.7.2.686 Th[place] as [phone] [address] 2019-08-24 2019-08-24 Outpatient R JG [facility] [id number] Univers 09:56:49 09:56:00 SCAR ity of [place]I [facility] 2019-05-25 2019-05-25 [facility] 1.2.840.114 [id number] Univers 13:22:00 15:48:00 Encounter Shila C Health 350.1.13.10 [place] [phone] [address] ([facility]) 2019-05-25 2019-05-25 Orders Doctor MIRTA 1.2.840.114 [id number] Univers 00:00:00 00:00:00 Only Unassigned, HANNAH 350.1.13.10 ity of [place] [facility] 4.2.7.2.686 [place] [phone] [address] 2019-04-28 2019-04-28 Telephone [facility] 1.2.840.114 [id number] Univers 00:00:00 00:00:00 Mehnaz SPECIALTY 350.1.13.10 [place]2.[place] AT [phone] Ct kev MTZ [address] [place] [address] 2019-04-27 2019-04-27 [facility] 1.2.840.114 [id number] Univers 13:46:00 16:51:00 Encounter Shila C Health 350.1.13.10 [place] [place] [facility] [id number] [address] ([facility]) 2019-04-27 2019-04-27 Orders Doctor MIRTA 1.2.840.114 [id number] Univers 00:00:00 00:00:00 Only Unassigned, HANNAH 350.1.13.10 ity of [place] [facility] 4.2.7.2.686 [place] [phone] [facility] [address] 2019-04-21 2019-04-21 Telephone Bentley Rebollar 1.2.840.114 [id number] Univers 00:00:00 00:00:00 C Avina 350.1.13.10 it y of [place]2.[place] [phone] [place] 8[address] [place] 2019-04-15 2019-04-15 Office Alexia TXTRISTAN 1.2.840.114 [id number] Univers 12:46:10 13:16:10 Visit Shila Flores MULTISPEC 350.1.13.10 ity of [place] [phone] [facility] AND [place] [address] [place] [facility] 2019-01-13 2019-01-13 Outpatient Eh DE PAZ [facility] [id number] Univers 12:14:13 23:59:00 LYNN abad [facility] Results This patient has no known results.
--- NOTE | 2023-03-15 12:17 | ER ---
Nurse's Notes [facility] Name: Cindy Malin Age: 67 yrs Sex: Female : 1955 Arrival Date: 03/15/2023 Time: 11:56 Bed IW1 Private MD: Diagnosis: Pruritus, unspecified Presentation: 03/15 12:09 Chief complaint: Patient states: itching all over for three weeks. Coronavirus screen: ko1 At this time, the client does not indicate any symptoms associated with coronavirus-19. Ebola Screen: No symptoms or risks identified at this time. Onset: The symptoms/episode began/occurred 3 week(s) ago. Anaphylaxis evaluation, no signs or symptoms of anaphylaxis were noted. Initial Sepsis Screen: Does the patient meet any 2 criteria? No. Patient's initial sepsis screen is negative. Does the patient have a suspected source of infection? No. Patient's initial sepsis screen is negative. Risk Assessment: Do you want to hurt yourself or someone else? Patient reports no desire to harm self or others. Onset of symptoms was March 15, 2023. 12:09 Method Of Arrival: Ambulatory ko1 12:09 Acuity: SHAMA 4 ko1 Triage Assessment: 12:12 General: Appears distressed, uncomfortable, Behavior is appropriate for age, anxious, ko1 restless. Pain: Denies pain. Historical: - Allergies: 12:12 Codeine; ko1 - Home Meds: 12:12 Valium 10 mg Oral tab 1 tab 2 times per day [Active]; ko1 - PMHx: 12:12 Back pain; breast cancer; ko1 - Immunization history:: Adult Immunizations unknown. - Social history:: Smoking status: Patient reports the use of cigarette tobacco products, smokes one pack cigarettes per day. Screenin:[address] [facility] ED Fall Risk Assessment (Adult) History of falling in the last 3 months, ko1 including since admission No falls in past 3 months (0 pts) Confusion or Disorientation No (0 pts) Intoxicated or Sedated No (0 pts) Impaired Gait No (0 pts) Mobility Assist Device Used No (0 pt) Altered Elimination No (0 pt) Score/Fall Risk Level 0 - 2 = Low Risk Oriented to surroundings, Maintained a safe environment, Educated pt \T\ family on fall prevention, incl call for assistance when getting out of bed, Assessed \T\ reinforced patient's understanding of fall precautions, Provided non-skid footwear, Hourly rounding (assess needs \T\ fall precautionary measures) done, Used ambulatory aids as needed (educated on \T\ assisted with), Used gait belt as appropriate. Abuse screen: Denies threats or abuse. Denies injuries from another. Nutritional screening: No deficits noted. Tuberculosis screening: No symptoms or risk factors identified. Assessment: 12:21 Neuro: No deficits noted. Cardiovascular: No deficits noted. Respiratory: No deficits ko1 noted. Airway is patent Respiratory effort is even, unlabored, Breath sounds are clear bilaterally. GI: No deficits noted. : No deficits noted. EENT: No deficits noted. Derm: Reports itching. Musculoskeletal: No deficits noted. Vital Signs: 12:09 BP 177 / 98; Pulse 116; Resp 20; Temp 98; Pulse Ox 99% ; Weight 57.15 kg; Height 4 ft. ko1 11 in. ; 12:09 Body Mass Index 25.45 (57.15 kg, 149.86 cm) ko1 ED Course: 11:56 Patient arrived in ED. rg4 11:57 Ginny Thomas FNP-C is [facility]. kb 11:57 Oral Stack MD is Attending Physician. kb 12:07 Loli Sandoval, NARDA is Primary Nurse. ko1 12:12 Triage completed. ko1 12:12 Arm band placed on right wrist. ko1 12:21 Patient has correct armband on for positive identification. ko1 12:21 No provider procedures requiring assistance completed. Patient did not have IV access ko1 during this emergency room visit. Administered Medications: 12:19 Drug: hydrOXYzine PO 25 mg Route: PO; ko1 Medication: 12:21 VIS not applicable for this client. ko1 Outcome: 12:16 Discharge ordered by . kb 12:21 Discharged to home ambulatory. ko1 12:21 Condition: stable 12:21 Discharge instructions given to patient, family, Instructed on discharge instructions, follow up and referral plans. medication usage, Demonstrated understanding of instructions, follow-up care, medications, Prescriptions given X 2. 12:23 Patient left the ED. ko1 Signatures: Ginny Thomas FNP-C FNP-Pippa Brewster rg4 Loli Sandoval, RN RN ko1
--- NOTE | 2023-03-15 12:17 | EDPHYS ---
Physician Documentation [facility] Name: Cindy Malin Age: 67 yrs Sex: Female : 1955 Arrival Date: 03/15/2023 Time: 11:56 Bed IW1 Private MD: ED Physician Oral Stack HPI: 03/15 15:04 This 67 yrs old Female presents to ER via Ambulatory with complaints of Itching. kb 15:04 Pt reports diffuse itching that started 3 weeks ago. States it started shortly after kb allowing a homeless girl to live with her so she believes it could be her nerves. Onset: The symptoms/episode began/occurred 3 week(s) ago. Severity of symptoms: At their worst the symptoms were moderate in the emergency department the symptoms are unchanged. The patient has not experienced similar symptoms in the past. The patient has not recently seen a physician. Historical: - Allergies: 12:12 Codeine; ko1 - Home Meds: 12:12 Valium 10 mg Oral tab 1 tab 2 times per day [Active]; ko1 - PMHx: 12:12 Back pain; breast cancer; ko1 - Immunization history:: Adult Immunizations unknown. - Social history:: Smoking status: Patient reports the use of cigarette tobacco products, smokes one pack cigarettes per day. ROS: 15:03 Constitutional: Negative for fever, chills, and weight loss. kb 15:03 All other systems are negative. Exam: 15:03 Constitutional: This is a well developed, well nourished patient who is awake, alert, kb and in no acute distress. Head/Face: Normocephalic, atraumatic. ENT: Moist Mucous membranes Cardiovascular: Regular rate and rhythm with a normal S1 and S2. No gallops, murmurs, or rubs. No pulse deficits. Respiratory: Respirations even and unlabored. No increased work of breathing. Talking in full sentences Skin: Warm, dry with normal turgor. Normal color. MS/ Extremity: Pulses equal, no cyanosis. Neurovascular intact. Full, normal range of motion. Neuro: Awake and alert, GCS 15, oriented to person, place, time, and situation. Moves all extremities. Normal gait. Vital Signs: 12:09 BP 177 / 98; Pulse 116; Resp 20; Temp 98; Pulse Ox 99% ; Weight 57.15 kg; Height 4 ft. ko1 11 in. ; 12:09 Body Mass Index 25.45 (57.15 kg, 149.86 cm) ko1 MDM: 11:57 Patient medically screened. kb 15:04 Data reviewed: vital signs, nurses notes. kb 15:05 Differential Diagnosis pruritus, allergic reaction, scabies. 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 Administered Medications: 12:19 Drug: hydrOXYzine PO 25 mg Route: PO; ko1 Disposition: 15:30 Co-signature as Attending Physician, Oral Stack MD I agree with the assessment and kdr plan of care. Disposition Summary: 03/15/23 12:16 Discharge Ordered Location: Home kb Condition: Stable kb Diagnosis - Pruritus, unspecified kb Followup: kb - With: Emergency Department - When: As needed - Reason: Worsening of condition Followup: kb - With: Private Physician - When: 2 - 3 days - Reason: Recheck today's complaints, Continuance of care, Re-evaluation by your physician Discharge Instructions: - Discharge Summary Sheet kb - Pruritus kb Forms: - Medication Reconciliation Form kb - Thank You Letter kb - Antibiotic Education kb - Prescription Opioid Use kb - [email or web address] kb Prescriptions: - Elimite 5 % Topical Cream - apply 1 application by TOPICAL route one time Wash after 12 hours.; 60 gram; kb Refills: 0, Product Selection Permitted - Hydroxyzine HCl 25 mg Oral Tablet - take 1 tablet by ORAL route every 8 hours As needed; 12 tablet; Refills: 0, kb Product Selection Permitted Signatures: Ginny Thomas, SLY-C SLY-Oral Menendez MD MD kdr Oliver, Kathy, RN RN ko1 Corrections: (The following items were deleted from the chart) 15:06 15:05 Counseling: I had a detailed discussion with the patient and/or guardian kb regarding: the historical points, exam findings, and any diagnostic results supporting the discharge/admit diagnosis, the need for outpatient follow up, a family practitioner, to return to the emergency department if symptoms worsen or persist or if there are any questions or concerns that arise at home, kb
[2023-03-15] MEDS ORDERED: hydrOXYzine HCL 25 MG TAB ONE (12:26)
[2023-03-15 12:28] VITALS: BP 177/98; TEMP 98; O2SAT 99
== END 2023-03-15 12:23 | disposition home or self-care (01) ==
LOC: ER 11:56
DX: L29.9 Pruritus, unspecified (principal)
CPT/HCPCS: 99283

== ENCOUNTER 2023-04-14 13:40 | Emergency (ER) | payer OTHER ==
--- OUTSIDE RECORDS SUMMARY | 2023-04-14 13:43 | XMS REPORT | Continuity of Care Document ---
:1955 Author Organization [facility] t Address [address] [place] [address] [address] [place] [address] Care Team Providers Name Role Phone CHIVO FRENCH Primary Care Physician Unavailable GERA SOTOMAYOR Attending Clinician Unavailable Doctor Unassigned, [place] Attending Clinician Unavailable ERNST OLIVAS Attending Clinician Unavailable Ernst Olivas MD Attending Clinician MARY KAY HARRISON Attending Clinician Unavailable Mary Kay Harrison MD Attending Clinician Gera Hancock Attending Clinician [phone] Radiology Attending Clinician Unavailable RADIOLOGY Attending Clinician [...] Number Effective Date Expiration Date Darrell denise [facility] [id number] 2019 00:00:00 [facility] [id number] 2011 MEDICAID 00:00:00 Problems Condition Condition Condition [...] Added automatic ally from request for surgery [id number] Cervical Cervical Disease Active Overview: Un pablito spondylosi spondylosi 5-28 Formattin ity of s with s with 00:00: g of this [place] radiculopa radiculopa 00 note Me dical thy thy might be Branch different from the original. Added automatic ally from request for surgery [id number] Anxiety Anxiety Disease Active Univers 2-08 ity of 00:00: [place] 00 Medical Branch Chronic Chronic Disease Active Univers fatigue fatigue 2-08 ity of 00:00: [place] 00 Medical Branch History of History of Disease Active U nivers breast breast 8-10 ity of cancer cancer 00:00: [place] 00 Medical Branch Cervical Cervical Disease Active Overview: Un pablito radiculopa radiculopa 7-13 Formattin ity of thy due to thy due to 00:00: g of this [place] osteoarthr osteoarthr 00 note Me dical itis of itis of might be Branch spine spine different from the original. Added automatic ally from request for surgery [id number] Cervical Cervical Disease Active Overview: Un pablito radiculopa radiculopa 3-30 Formattin ity of thy thy 00:00: g of this [place] 00 note Medical might be Branch different from the original. Added automatic ally from request for surgery [id number] S/P total S/P total Disease Active Uni vers hip hip 7-18 ity of arthroplas [place]plas [place] ty [place] 00 Medical [place] Left hip Left hip Disease Active Overview: Un pablito pain pain 6-15 Formattin ity of 00:00: g of this [place] 00 note Medical might be Branch different from the original. Added automatic ally from request for surgery [id number] Hip pain, Hip pain, Disease Active 2015-09 Uni vers acute, acute, 1-30 ity of left left 00:00: [place] 00 Medical Branch S/P S/P Disease Active 2015-09 Univers orthopedic orthopedic 10-13 it y of surgery, surgery, 00:00: [place] follow-up follow-up 00 Medi brandt exam exam [...] Active U nivers 3-31 ity of 00:00: [place] Medical [facility] Lumbosacra Lumbosacra Disease Active 2013-09 [...] muscle 0-20 ity of pain pain 00:00: [place] [facility] Acquired Acquired Disease Active Unive rs absence of absence of 2-05 it y of breast and breast and [place] nipple nipple 00 Medical [place] Breast Breast Disease Active Univers cancer cancer 1-15 ity of 00:00: [place] [facility] Fracture, Fracture, Disease Active Overview: Univers cause cause 2-22 Formattin ity of unspecifie unspecifie 00:00: g of this [place] d(E887) d(E887) 00 note Medical might be [...] History SDOH University o f Alcohol Frequency [facility] edical Branch History SDNM University o f Alcohol Std [place] Medical Drinks Branch History SDNM University o f Alcohol Binge [place] Medic al Branch Exposure to 2022-04-15 2022-04-25 Not sure University of SARS-CoV-2 00:00:00 16:01:00 [facility] (event) Branch Alcohol intake 2021-10-19 2021-10-19 Current drinker Unive rsity of 00:00:00 00:00:00 of alcohol [facility] (finding) Branch Tobacco use and 2019-05-20 2019-05-20 Smokeless tobacco Un iversity of exposure 00:00:00 00:00:00 non-user [facility] History of 2012-09-21 Cigarette Smoker Universi ty of tobacco use 00:00:00 [facility] Alcohol Comment 2009-10-22 2009-10-22 only once monthly Un iversity of 00:00:00 00:00:00 [facility] Sex [birth year] Universit y of 00:00:00 00:00:00 [facility] Smoking Status Start Date Stop Date Source Ex-smoker 2019-05-20 00:00:00 2019-05-20 00:00:00 Universi ty of [facility] Medications Ordered Filled Start Stop Current Ordering [...] Branch at 0545, STAT gabapentin 2021-0 Yes [id number] 300mg Take 1 Univers 300 mg 2-01 capsule by ity of capsule 00:00: mouth 3 [place] 00 (three) Medical times Branch daily. methocarbam 2021-0 Yes [id number] 500mg Take 1 Univers oL 2-01 tablet by ity of (ROBAXIN) 00:00: mouth [place] 500 mg 00 every 6 Medical tablet (six) Branch hours as needed for Pain (scale 7-10) (MUSCLE SPASM). gabapentin 2021-0 Yes [id number] 300mg Take 1 Univers 300 mg 2-01 capsule by ity of capsule 00:00: mouth 3 [place] 00 (three) Medical times Branch daily. methocarbam 2022-0 Yes [id number] 500mg Take 1 Univers oL 2-01 tablet by ity of (ROBAXIN) 00:00: mouth [place] 500 mg 00 every 6 Medical tablet (six) Branch hours as needed for Pain (scale 7-10) (MUSCLE SPASM). gabapentin 2022-0 Yes [id number] 300mg Take 1 Univers 300 mg 2-01 capsule by ity of capsule 00:00: mouth 3 [place] 00 (three) Medical times Branch daily. methocarbam 2022-0 Yes [id number] 500mg Take 1 Univers oL 2-01 tablet [...] 00 weekly. Medical Branch gabapentin 2020-09- No [id number] 300mg Take 1 Univers 300 mg 10-01-19 capsule by ity of capsule 00:00: 05:59 mouth 2 [place] 00 :00 (two) Medical times Branch daily for 30 days. magnesium 2020-0 Yes Take by Unive rs aspartate/v 2-05 mouth. ity of it B6/Zn 13:38: [place] (ZINC 34 Medical MAGNESIUM Branch ASPARTATE ORAL) Cholecalcif 2020-0 Yes Take by Uni vers alfred, 2-05 mouth. ity of Vitamin D3, 13:38: [place] (VITAMIN 34 Medical D3) 5,000 Branch unit tablet Cyanocobala 2020-0 Yes Take by Uni vers min 2-05 mouth. ity of (VITAMIN 13:38: [facility] 1,000 34 Medical mcg tablet Branch ibuprofen 2020-0 Yes 400mg Take 400 Uni vers (MOTRIN 2-05 mg by ity of ORAL) 13:38: mouth. [place] 34 Medical Branch magnesium 2020-0 Yes Take by Unive rs aspartate/v 2-05 mouth. ity of it B6/Zn 13:38: [place] (ZINC 34 Medical MAGNESIUM Branch ASPARTATE ORAL) Cholecalcif 2020-0 Yes Take by Uni vers alfred, 2-05 mouth. ity of Vitamin D3, 13:38: [place] (VITAMIN 34 Medical D3) 5,000 Branch unit tablet Cyanocobala 2020-0 Yes Take by Uni vers min 2-05 mouth. ity of (VITAMIN 13:38: [place] B-12) 1,000 34 Medical mcg tablet Branch ibuprofen 2020-0 Yes 400mg Take 400 Uni vers (MOTRIN 2-05 mg by ity of ORAL) 13:38: mouth. [place] [address] Medical Branch magnesium 2020-0 Yes Take by Unive rs aspartate/v 2-05 mouth. ity of it B6/Zn 13:38: [place] (ZINC 34 Medical MAGNESIUM Branch ASPARTATE ORAL) Cholecalcif 2020-0 Yes Take by Uni vers alfred, 2-05 mouth. ity of Vitamin D3, 13:38: [place] (VITAMIN 34 Medical D3) 5,000 Branch unit tablet Cyanocobala 2020-0 Yes Take by Uni vers min 2-05 mouth. ity of (VITAMIN 13:38: [place] B-12) 1,000 34 Medical mcg tablet Branch ibuprofen 2020-0 Yes 400mg Take 400 Uni vers (MOTRIN 2-05 mg by ity of ORAL) 13:38: mouth. [place] [address] Medical Branch magnesium 2020-0 Yes Take by Unive rs aspartate/v 2-05 mouth. ity of it B6/Zn 13:38: [place] (ZINC 34 Medical MAGNESIUM Branch ASPARTATE ORAL) Cholecalcif 2020-0 Yes Take by Uni vers alfred, 2-05 mouth. ity of Vitamin D3, 13:38: [place] (VITAMIN 34 Medical D3) 5,000 Branch unit tablet Cyanocobala 2020-0 Yes Take by Uni vers min 2-05 mouth. ity of (VITAMIN 13:38: [place] B-12) 1,000 34 Medical mcg tablet Branch ibuprofen 2020-0 Yes 400mg Take 400 Uni vers (MOTRIN 2-05 mg by ity of ORAL) 13:38: mouth. [address] Branch meloxicam 2020-0 Yes [id number] 7.5mg Take 1 Univers 7.5 mg 1-10 tablet by ity of tablet 00:00: mouth 2 (two) Medical times Branch daily as needed (Pain). meloxicam 2020-0 Yes [id number] 7.5mg Take 1 Univers 7.5 mg 1-10 tablet by ity of tablet 00:00: mouth 2 (two) Medical times Branch daily as needed (Pain). meloxicam 2020-0 Yes [id number] 7.5mg Take 1 Univers 7.5 mg 1-10 tablet by ity of tablet 00:00: mouth 2 (two) Medical times Branch daily as needed (Pain). meloxicam 2020-0 Yes [id number] 7.5mg Take 1 Univers 7.5 mg 1-10 tablet by ity of tablet 00:00: mouth 2 (two) Medical times Branch daily as needed (Pain). zolpidem 2018-09 Yes [id number] 10mg Take 1 Univers mg tablet 0-15 tablet by ity o f 00:00: mouth at [place] bedtime. Medical Branch diazePAM 2 2018-09 Yes [id number] 2mg Take 1 U nivers mg tablet 0-15 tablet by ity o f 00:00: mouth 2 (two) Medical times Branch daily as needed for Anxiety. zolpidem 2018-09 Yes [id number] 10mg Take 1 Univers mg tablet 0-15 tablet by ity o f 00:00: mouth at [place] bedtime. Medical Branch diazePAM 2018-09 Yes [id number] 2mg Take 1 U nivers mg tablet 0-15 tablet by ity o f 00:00: mouth 2 (two) Medical times Branch daily as needed for Anxiety. zolpidem 2018-09 Yes [id number] 10mg Take 1 Univers mg tablet 0-15 tablet by ity o f 00:00: mouth at [place] bedtime. Medical Branch diazePAM 2 2018-09 Yes [id number] 2mg Take 1 U nivers mg tablet 0-15 tablet by ity o f 00:00: mouth 2 (two) Medical times Branch daily as needed for Anxiety. zolpidem 2018-09 Yes [id number] 10mg Take 1 Univers mg tablet 0-15 tablet by ity o f 00:00: mouth at [place] bedtime. Medical Branch diazePAM 2018-09 Yes [id number] 2mg Take 1 U nivers mg tablet 0-15 tablet by ity o f 00:00: mouth 2 (two) Medical times Branch daily as needed for Anxiety. cyclobenzap Yes Univer s rine 7.5 mg 7-24 ity of tablet 00:00: [place] 00 Medical Branch cyclobenzap Yes Univer s rine 7.5 mg 7-24 ity of tablet 00:00: 00 Medical Branch cyclobenzap Yes Univer s rine 7.5 mg 7-24 ity of tablet 00:00: 00 Medical Branch cyclobenzap Yes Univer s rine 7.5 mg 7-24 ity of tablet 00:00: [place] 00 Medical Branch albuterol Yes [id number] 2{puff} Inhale 2 Univers (PROAIR 4-30 Puffs ity of HFA) 90 00:00: every 4 [place] mcg/actuati 00 (four) Medica l on inhaler hours as Branc h needed for Wheezing or Shortness of Breath. albuterol Yes [id number] 2{puff} Inhale 2 Univers (PROAIR 4-30 Puffs ity of HFA) 90 00:00: every 4 [place] mcg/actuati 00 (four) Medica l on inhaler hours as Branc h needed for Wheezing or Shortness of Breath. albuterol Yes [id number] 2{puff} Inhale 2 Univers (PROAIR 4-30 Puffs ity of HFA) 90 00:00: every 4 [place] mcg/actuati 00 (four) Medica l on inhaler hours as Branc h needed for Wheezing or Shortness of Breath. albuterol Yes [id number] 2{puff} Inhale 2 Univers (PROAIR 4-30 Puffs ity of HFA) 90 00:00: every 4 [place] mcg/actuati 00 (four) Medica l on inhaler hours as Branc h needed for Wheezing or Shortness of Breath. fluticasone Yes [id number] 1{spray Use 1 Univers 50 9-21 } [place] in ity of mcg/actuati 00:00: each [place] on nasal 00 nostril 2 Medica l spray (two) Branch times daily. fluticasone Yes [id number] 1{spray Use 1 Univers 50 9-21 } [place] in ity of mcg/actuati 00:00: each [place] on nasal 00 nostril 2 Medica l spray (two) Branch times daily. fluticasone Yes 1{spray Use 1 Univers 50 9-21 } [place] in ity of mcg/actuati 00:00: each [place] on nasal 00 nostril 2 Medica l spray (two) Branch times daily. fluticasone Yes 1{spray Use 1 Univers 50 9-21 } [place] in ity of mcg/actuati 00:00: each [place] on nasal 00 nostril 2 Medica l spray (two) Branch times daily. Immunizations Ordered Filled Immunization Date Status Comments Sour e Immunization Name Name Influenza Virus 2018-08-18 Completed Universit y of Vaccine Quad IM 3+ 00:00:00 [facility] Influenza Virus 2018-08-18 Completed Universit y of Vaccine Quad IM 3+ 00:00:00 [facility] Influenza Virus 2018-08-18 Completed Universit y of Vaccine Quad IM 3+ 00:00:00 [facility] Branch Influenza Virus 2018-08-18 Completed Universit y of Vaccine Quad IM 3+ 00:00:00 [facility] Vital Signs Vital Name Observation Time Observation Value Comments Source Systolic blood 2022-04-26 00:30:00 130 mm[Hg] Univer sity of pressure [facility] Diastolic blood 2022-04-26 00:30:00 78 mm[Hg] Unive rsity of [facility] Heart rate 2022-04-26 00:30:00 98 /min [facility] Respiratory rate 2022-04-26 00:30:00 18 /min [facility] Oxygen saturation in 2022-04-26 00:30:00 97 /min [facility] Arterial blood by [facility] Pulse oximetry [place] Body temperature 2022-04-25 23:30:00 36 Martha [facility] Body height 2022-04-25 21:03:00 149.9 cm [facility] Body weight 2022-04-25 21:03:00 54.432 kg [facility] BMI 2022-04-25 21:03:00 24.24 kg/m2 [facility] Systolic blood 2021-10-15 10:24:00 153 mm[Hg] Univer sity of [facility] Diastolic blood 2021-10-15 10:24:00 86 mm[Hg] Unive rsity of pressure [facility] Heart rate 2021-10-15 10:24:00 115 /min [facility] Body temperature 2021-10-15 10:24:00 35.94 [facility] 2021-10-15 10:24:00 20 /min [facility] Body height 2021-10-15 10:24:00 147.3 cm [facility] Body weight 2021-10-15 10:24:00 49.896 kg [facility] BMI 2021-10-15 10:24:00 22.99 kg/m2 [facility] Oxygen saturation in 2021-10-15 10:24:00 92 /min [facility] Arterial blood by [facility] Pulse oximetry Branch Procedures Procedure Date / Time Performing Clinician Source Performed AUTHORIZATION FOR 2022-05-21 05:01:00 Doctor Unassyanet, No [facility] RELEASE OF PHI Name [facility] CT CERVICAL SPINE WO 2022-04-26 00:00:00 Ernst Olivas [facility] itreynold [facility] CONTRAST [facility] CT LUMBAR SPINE WO 2022-04-26 00:00:00 [facility] [place] CONTRAST [facility] CT THORACIC SPINE WO 2022-04-26 00:00:00 Ernst Olivas [facility] En[facility] Start End Encounter Admission Attending Care Care Encounter Source Date/Time Date/Time Type Type Clinicians Facility Department ID 2021-07-14 Emergency [facility] [id number] Univers 07:52:30 ity of [facility] 2022-05-21 2022-05-21 Orders Doctor KIRBY 1.2.840.114 [id number] Univers 00:00:00 00:00:00 Only Unassigned, HANNAH 350.1.13.10 ity of [place] [facility] 4.2.7.2.686 [facility] [id number] [facility] 009 Branch 2022-04-25 2022-04-25 Emergency X [facility] ERT [id number] Univers 16:05:00 20:41:00 ERNST ity [facility] 2022-04-25 2022-04-25 Emergency [facility]ck [facility] [id number] Univers 16:05:00 20:41:00 Ernst WOODY [id number] i ty [facility] 4.2.7.2.686 [facility] [id number] [facility] 084 Branch 2021-10-15 2021-10-15 Emergency X HUNTER [facility] ERT [id number] Univers 04:26:00 05:53:00 MARY KAY ity of [facility] 2021-10-15 2021-10-15 Emergency Hunter [facility] [id number] Univers 04:26:00 05:53:00 Angiletakelly Darrell [place] [id number] ity of [place] 4.2.7.2.686 [facility] [id number] [facility] 084 [place] 2021-08-19 2021-08-19 Telephone [facility] 1.2.840.114 [id number] Univers 00:00:00 00:00:00 scar SPECIALTY [id number] ity of [facility] 4.2.7.2.686 [facility] AT [id number] Sc kev MTZ 198 [facility] 2021-08-16 2021-08-16 [id number] Univers 13:09:18 23:59:00 dakota ABBOTT [facility] 2021-08-16 2021-08-16 [facility] 1.2.840.114 [id number] Univers 13:09:18 23:59:00 Encounter SOLOMON abbott 350.1.13.10 ity of [facility] 4.2.7.2.686 [facility] AT [id number] Sc kev MTZ 800 [facility] 2021-08-16 2021-08-16 Outpatient R [facility] [id number] Univers 13:09:18 23:59:00 dakota ABBOTT [facility] 2021-08-01 2021-08-01 Outpatient R [facility] [id number] Univers 10:40:00 10:49:20 dakota ABBOTT [facility] 2021-08-01 2021-08-01 Office [facility] 1.2.840.114 [id number] Univers 10:30:15 10:49:20 Visit crystalon, SPECIALTY 350.1.13.10 ity of [place] C[place] 4.2.7.2.686 [place] AT [id number] Sc kev MTZ 198 [facility] 2021-08-01 2021-08-01 Orders Doctor MIRTA 1.2.840.114 [id number] Univers 00:00:00 00:00:00 Only Unassigned, HANNAH 350.1.13.10 ity of [place] [facility] 4.2.7.2.[address] [place] [id number] 2021-04-18 2021-04-18 [facility] [id number] Univers 15:08:12 23:59:00 Encounter crystalon, SPECIALTY 350.1.13.10 ity of [place] C[place] 4.2.7.2.686 [place] AT [id number] Sc kev MTZ 809 [facility] 2021-04-18 2021-04-18 Office [facility] 1.2.840.114 [id number] Univers 14:38:07 15:39:44 Visit crystalon, SPECIALTY 350.1.13.10 ity of [place] C[place] 4.2.7.2.686 [place] AT [id number] Sc kev MTZ 198 [facility] 2021-04-18 2021-04-18 [facility] 1.2.840.114 [id number] Univers 15:06:23 15:07:00 Encounter caseyumon, SPECIALTY 350.1.13.10 ity of [place] C[place] 4.2.7.2.686 [place] AT [id number] Sc kev MTZ 809 [facility] 2021-04-18 2021-04-18 Outpatient R [facility] [id number] Univers 14:15:00 14:15:00 SCAR ity of [place] [facility] 2021-04-09 2021-04-09 Hospital Radiology [facility] 1.2.840.114 [id number] Univers 16:03:59 23:59:00 Encounter SPECIALTY 350.1.13.10 ity of C[place] 4.2.7.2.686 [place] [id number] Sc kev MTZ 800 [facility] 2021-04-09 2021-04-09 Outpatient R RADIOLOGY [facility] [id number] Univers 00:00:00 00:00:00 ity of [facility] 2021-03-18 2021-03-18 Outpatient R [facility] [id number] Univers 09:00:00 09:00:00 dakota ABBOTT [facility] 2021-03-05 2021-03-05 Outpatient R [facility] [id number] Univers 10:40:00 10:40:00 dakota ABBOTT of [facility] 2020-12-11 2020-12-11 [facility] 1.2.840.114 [id number] Univers 13:19:06 23:59:00 Encounter scar, SPECIALTY 350.1.13.10 [facility] 4.2.7.2.686 [facility] AT [id number] Sc kev MTZ 803 [facility] 2020-12-11 2020-12-11 Outpatient R [facility] [id number] Univers 00:00:00 00:00:00 dakota ABBOTT [facility] 2020-12-04 2020-12-04 Emergency [facility] 1.2.840.114 [id number] Univers 11:41:00 12:46:00 Babita Woody 350.1.13.10 ity [facility] 4.2.7.2.686 [place] [facility] [id number] [facility] 084 [place] 2020-11-22 2020-11-22 Telephone [facility] 1.2.840.114 [id number] Univers 00:00:00 00:00:00 scar, SPECIALTY 350.1.13.10 [facility] 4.2.7.2.[place] AT [id number] Sc kev MTZ 198 [facility] 2020-07-26 2020-07-26 Office [facility] 1.2.840.114 [id number] Univers 10:45:33 16:27:04 Visit scar, SOLOMON 350.1.13.10 ity of [facility] CARE 4.2.7.2.686 [place] AT [id number] Sc dical BIBI 198 [facility] 2020-07-26 2020-07-26 Outpatient R [facility] [id number] Univers 10:45:00 10:45:00 SCAR, ity of [facility] 2020-07-26 2020-07-26 Orders Doctor MIRTA 1.2.840.114 [id number] Univers 00:00:00 00:00:00 Only Unassigned, HANNAH 350.1.13.10 ity of [place] [facility] 4.2.7.2.[address] [place] [id number] 2020-03-28 2020-03-28 [facility] Radiology [facility] 1.2.840.114 [id number] 19:24:00 23:59:00 Encounter SPECIALTY 350.1.13.10 CARE 4.2.7.2.686 CENTER AT [id number] MARY 800 [facility] 2020-03-28 2020-03-28 [facility] Radiology [facility] 1.2.840.114 [id number] Univers 19:24:00 23:59:00 Encounter SPECIALTY 350.1.13.10 ity of C[place] 4.2.7.2.686 [place] AT [id number] Sc artiemarianne MTZ 800 [facility] 2020-03-28 2020-03-28 Outpatient R RADIOLOGY [facility] [id number] Univers 19:24:09 19:24:09 ity of [facility] 2019-12-20 2020-01-23 [facility] 1.2.840.114 [id number] 08:48:31 15:03:17 ne Visit Shila Flores MULTISPEC 350.1.13.10 IALTY 4.2.7.2.686 CENTER [id number] AND [facility] 2019-12-20 2020-01-23 [facility] 1.2.840.114 [id number] Univers 08:48:31 15:03:17 ne Visit Shila Flores MULTISPEC 350.1.13.10 ity of IALTY 4.2.7.2.686 [place] [id number] [facility] AND DIEZ 011 [place] [facility] 2020-01-23 2020-01-23 Outpatient R ROXY-KU [facility] [id number] Univers 14:45:00 14:45:00 gloria ABBOTTy of SHIBI [facility] 2020-01-23 2020-01-23 Telemedici [facility] 1.2.840.114 [id number] 07:56:45 08:11:45 ne Visit SOLOMON abbott 350.1.13.10 [facility] 4.2.7.2.686 CENTER AT [id number] BIBI Mercedes [facility] 2020-01-23 2020-01-23 Telemedici [facility] 1.2.840.114 [id number] Univers 07:56:45 08:11:45 ne Visit SOLOMON abbott 350.1.13.10 ity of [facility] 4.2.7.2.686 [facility] AT [id number] Sc kev [address] 2019-12-20 2019-12-20 Outpatient R ALEXIA [facility] [id number] Univers 15:30:00 15:30:00 SHILA duncan of [facility] 2019-12-07 2019-12-07 [id number] Univers 14:00:00 14:00:00 LYNN abad [facility] 2019-12-01 2019-12-01 [place] [id number] Univers 00:00:00 00:00:00 Management Lynn Araiza 350.1.13.10 ity of BUILDING 4.2.7.2.686 [place] as [id number] [facility] 080 Branch 2019-11-24 2019-11-24 Outpatient Eh DE PAZ [facility] [id number] Univers 14:00:00 14:00:00 LYNN abad [facility] 2019-11-07 2019-11-07 [facility] 1.2.840.114 [id number] Univers 14:57:00 23:59:00 Encounter Shila Flores SPECIALTY 350.1.13.10 ity of CARE 4.2.7.2.686 [place] AT [id number] Sc artiemarianne MTZ 807 [facility] 2019-11-07 2019-11-07 [facility] 1.2.840.114 [id number] Univers 14:55:00 14:56:00 Encounter crystalon, SPECIALTY 350.1.13.10 ity of [place] C[place] 4.2.7.2.686 [place] AT [id number] Sc artiemarianne MTZ 807 [facility] 2019-11-07 2019-11-07 Outpatient R [facility] [id number] Univers 14:55:26 14:55:26 SCAR, ity of [facility] 2019-10-27 2019-10-27 Outpatient R [facility] [id number] Univers 13:41:07 23:59:00 [facility] 2019-10-27 2019-10-27 Outpatient R [facility] [id number] Univers 13:41:07 23:59:00 NHLAMONT, ity [facility] 2019-10-27 2019-10-27 [facility] 1.2.840.114 [id number] Univers 13:41:00 23:59:00 Encounter scar, SPECIALTY [id number] [id number] [phone] Sc artiemarianne MTZ 809 [facility] 2019-10-27 2019-10-27 [facility] 1.2.840.114 [id number] Univers 12:21:17 14:26:20 Visit scar, SPECIALTY [id number] [id number] [phone] Sc artiemarianne HERNANDEZReynold 198 [facility] 2019-10-20 2019-10-20 [facility]phone [facility] 1.2.840.114 [id number] Univers 00:00:00 00:00:00 Mehnaz SPECIALTY [id number] [id number] [phone] Sc kev Mitchell [facility] 2019-10-19 2019-10-19 Orders Doctor MIRTA 1.2.840.114 [id number] Univers 00:00:00 00:00:00 Only Unassigned, HANNAH [id number] ity of [facility] [id number] [place] [phone] 2019-08-24 2019-08-24 Outpatient R JG [facility] [id number] Univers 09:56:49 09:56:00 SCAR ity of [place] [facility] 2019-05-25 2019-05-25 [facility] 1.2.840.114 [id number] Univers 13:22:00 15:48:00 Encounter Shila [facility] [id number] [id number] [phone] [address] ([facility]) 2019-05-25 2019-05-25 Orders Doctor MIRTA 1.2.840.114 [id number] Univers 00:00:00 00:00:00 Only Unassigned, HANNAH [id number] ity of [facility] [id number] [place] [phone] 2019-04-28 2019-04-28 Telephone [facility] 1.2.840.114 [id number] Univers 00:00:00 00:00:00 Mehnaz SPECIALTY [id number] [id number] [phone] Sc kev MTZ [address] [place] [address] 2019-04-27 2019-04-27 [facility] 1.2.840.114 [id number] Univers 13:46:00 16:51:00 Encounter Shila C [facility] [id number] [id number] [facility] [phone] [address] ([facility]) 2019-04-27 2019-04-27 Orders Doctor MIRTA 1.2.840.114 [id number] Univers 00:00:00 00:00:00 Only Unassigned, HANNAH [id number] ity of [facility] [id number] [place] as [phone] [facility] [address] 2019-04-21 2019-04-21 Telephone Bentley Rebollar 1.2.840.114 [id number] Univers 00:00:00 00:00:00 C Avina [id number] [place] [phone] [place] [address] [place] 2019-04-15 2019-04-15 Office Alexia NCTRISTAN 1.2.840.114 [id number] Univers 12:46:10 13:16:10 Visit Shila Flores MULTISPEC 350.1.13.10 [place] [phone] [facility] [place] [facility] 2019-01-13 2019-01-13 Outpatient Eh DE PAZ [facility] [id number] Univers 12:14:13 23:59:00 LYNN abad [facility] Results This patient has no known results.
--- NOTE | 2023-04-14 14:57 | ER ---
Nurse's Notes [facility] Name: Cindy Malin Age: 67 yrs Sex: Female : 1955 Arrival Date: 04/14/2023 Time: 13:40 Bed 11 Private MD: Diagnosis: Toxic effect of venom of bees, accidental (unintentional) Presentation: 04/14 13:47 Chief complaint: Patient states: multiple bee stings yesterday around 4pm. Pt states cm10 that she woke up this morning and was having pain all over her body and was having difficulty breathing. Coronavirus screen: Vaccine status: Patient reports receiving the 2nd dose of the covid vaccine. Ebola Screen: No symptoms or risks identified at this time. Onset: The symptoms/episode began/occurred this morning. Anaphylaxis evaluation, no signs or symptoms of anaphylaxis were noted. Initial Sepsis Screen: Does the patient meet any 2 criteria? HR > 90 bpm. Does the patient have a suspected source of infection? No. Patient's initial sepsis screen is negative. Risk Assessment: Do you want to hurt yourself or someone else? Patient reports no desire to harm self or others. Onset of symptoms was April 14, 2023. 13:47 Method Of Arrival: Ambulatory cm10 13:47 Acuity: SHAMA 3 cm10 Historical: - Allergies: 13:49 Codeine; cm10 13:52 Benadryl; "Makes me crazy"; cm10 13:52 Allergy Medicine; cm10 - PMHx: 13:49 Back pain; breast cancer; cm10 - PSHx: 13:49 hip replacement- Left; cm10 - Immunization history:: Adult Immunizations. - Social history:: Smoking status: Patient reports the use of cigarette tobacco products, denies chronic smoking, but will smoke occasionally. - Family history:: not pertinent. - Hospitalizations: : No recent hospitalization is reported. Screenin:15 [facility] ED Fall Risk Assessment (Adult) History of falling in the last 3 months, iw including since admission. Abuse screen: Denies threats or abuse. Denies injuries from another. Nutritional screening: No deficits noted. Tuberculosis screening: No symptoms or risk factors identified. Assessment: 14:15 General: Appears in no apparent distress. Behavior is calm, cooperative. Pain: iw Complains of pain in left hand. Neuro: Level of Consciousness is awake, alert, obeys commands, Oriented to person, place, time, situation, Moves all extremities. Full function. Respiratory: Airway is patent Respiratory effort is even, unlabored, Breath sounds are clear bilaterally. Derm: Skin is intact, is healthy with good turgor. Musculoskeletal: Range of motion: intact in all extremities. Vital Signs: 13:47 BP 140 / 81; Pulse 106; Resp 18; Temp 97.8; Pulse Ox 98% ; Weight 4.99 kg; Height 4 ft. cm10 11 in. ; Pain 10/10; 13:47 Body Mass Index 2.22 (4.99 kg, 149.86 cm) cm10 13:47 Pain Scale: Adult cm10 ED Course: 13:41 Patient arrived in ED. rg4 13:44 Pancho Saldaña MD is Attending Physician. rn 13:49 Triage completed. cm10 13:49 Arm band placed on Patient placed in an exam room, on a stretcher. cm10 13:54 Christal Marrufo RN is Primary Nurse. iw 14:16 No provider procedures requiring assistance completed. Patient did not have IV access iw during this emergency room visit. Administered Medications: 14:01 Drug: MethylPREDNISolone Sodium Succinate IM 125 mg Route: IM; Site: right iw ventrogluteal; 15:00 Follow up: Response: No adverse reaction iw Outcome: 14:57 Discharge ordered by . rn 15:03 Patient left the ED. iw Signatures: Christal Marrufo RN RN iw Pancho Saldaña MD MD rn Garcia, Rubi rg4 Anastacia Jewell RN RN [facility]
--- NOTE | 2023-04-14 14:57 | EDPHYS ---
Physician Documentation [facility] Name: Cindy Malin Age: 67 yrs Sex: Female : 1955 Arrival Date: 04/14/2023 Time: 13:40 Bed 11 Private MD: ED Physician Pancho Saldaña HPI: 04/14 14:24 This 67 yrs old Female presents to ER via Ambulatory with complaints of Bee Sting. rn 14:24 The patient presents with itching. 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 Associated signs and symptoms: Pertinent negatives: abdominal pain, chest pain, fever, shortness of breath. Possible causes: bees. At home the patient or guardian has treated the symptoms with topical cream. Severity of symptoms: At their worst the symptoms were moderate in the emergency department the symptoms are unchanged. The patient has not experienced similar symptoms in the past. Pt reports stung by bees yesterday, arms and hand, cannot take benadryl or allergy medication so put topical lotion on and helped a little. Itching got worse today so came in. No sob. . Historical: - Allergies: 13:49 Codeine; cm10 13:52 Benadryl; "Makes me crazy"; cm10 13:52 Allergy Medicine; cm10 - PMHx: 13:49 Back pain; breast cancer; cm10 - PSHx: 13:49 hip replacement- Left; cm10 - Immunization history:: Adult Immunizations. - Social history:: Smoking status: Patient reports the use of cigarette tobacco products, denies chronic smoking, but will smoke occasionally. - Family history:: not pertinent. - Hospitalizations: : No recent hospitalization is reported. ROS: 14:24 Constitutional: Negative for fever, chills, and weight loss, Cardiovascular: Negative rn for chest pain, palpitations, and edema, Respiratory: Negative for shortness of breath, cough, wheezing, and pleuritic chest pain, Abdomen/GI: Negative for abdominal pain, nausea, vomiting, diarrhea, and constipation, MS/Extremity: Negative for injury and deformity, Skin: + itching Neuro: Negative for headache, weakness, numbness, tingling, and seizure. Exam: 14:24 Constitutional: This is a well developed, well nourished patient who is awake, alert, rn scratching both arms and neck Head/Face: Normocephalic, atraumatic. ENT: No oral swelling or stridor Cardiovascular: Tachycardic, regular. No pulse deficits. Respiratory: No increased work of breathing, no retractions or nasal flaring. Abdomen/GI: Soft, non-tender Skin: Warm, dry, excoriations bilateral upper ext, mild erythematous rash to arms and nape of neck. No stingers identified. MS/ Extremity: Pulses equal, no cyanosis. Neurovascular intact. Full, normal range of motion. Equal circumference. Neuro: Awake and alert, GCS 15 Vital Signs: 13:47 BP 140 / 81; Pulse 106; Resp 18; Temp 97.8; Pulse Ox 98% ; Weight 4.99 kg; Height 4 ft. cm10 11 in. ; Pain 10/10; 13:47 Body Mass Index 2.22 (4.99 kg, 149.86 cm) cm10 13:47 Pain Scale: Adult cm10 MDM: 13:44 Patient medically screened. rn 14:56 Differential diagnosis: urticaria. Data reviewed: vital signs, nurses notes, and as a rn result, I will discharge patient. Counseling: I had a detailed discussion with the patient and/or guardian regarding: the historical points, exam findings, and any diagnostic results supporting the discharge/admit diagnosis, the need for outpatient follow up, to return to the emergency department if symptoms worsen or persist or if there are any questions or concerns that arise at home. Response to treatment: the patient's symptoms have mildly improved after treatment, and as a result, I will discharge patient. Special discussion: I discussed with the patient/guardian in detail that at this point there is no indication for admission to the hospital. It is understood, however, that if the symptoms persist or worsen the patient needs to return immediately for re-evaluation. Administered Medications: 14:01 Drug: MethylPREDNISolone Sodium Succinate IM 125 mg Route: IM; Site: right iw ventrogluteal; 15:00 Follow up: Response: No adverse reaction iw Disposition Summary: 04/14/23 14:57 Discharge Ordered Location: Home rn Problem: new rn Symptoms: have improved rn Condition: Stable rn Diagnosis - Toxic effect of venom of bees, accidental (unintentional) rn Followup: rn - With: Private Physician - When: As needed - Reason: Recheck today's complaints, Re-evaluation by your physician Discharge Instructions: - Discharge Summary Sheet rn - Bee, Wasp, or Hornet Sting, Adult rn Forms: - Medication Reconciliation Form rn - Thank You Letter rn - Antibiotic burner technician - Prescription Opioid Use rn - Patient Portal Instructions rn Prescriptions: - Prednisone 20 mg Oral Tablet - take 3 tablets by ORAL route once daily for 5 days; 15 tablet; Refills: 0, rn Product Selection Permitted Signatures: Christal Marrufo RN RN iw Nieto, Roman, MD MD rn Martinez, Clarissa, RN RN cm10
[2023-04-14 15:22] VITALS: BP 140/81; TEMP 97.8; O2SAT 98
== END 2023-04-14 15:03 | disposition home or self-care (01) ==
LOC: ER 13:40
DX: T63.441A Toxic effect of venom of bees, accidental (unintentional), initial encounter (principal); F17.210 Nicotine dependence, cigarettes, uncomplicated; Z88.5 Allergy status to narcotic agent; Z88.8 Allergy status to other drugs, medicaments and biological substances

== ENCOUNTER → 2023-09-13 | Emergency (ER) | payer OTHER ==
[~2023-09-13] MED LIST: ACETAMINOPHEN 500 MG TAB ONE; AMOX/K CLAV 875 MG TAB ONE; KETOROLAC 30 MG/ML INJ ONE
--- OUTSIDE RECORDS SUMMARY | 2023-09-13 18:39 | XMS REPORT | Continuity of Care Document ---
Author Name Unknown Address [address] [facility] [address] [place] [address] [facility] [address] [place] [address] Care Team Providers Care Plan Manager Name Role Phone Ryan Duke Primary Care Physician [phone] GERA SOTOMAYOR Attending Clinician Nathalie vailable Gera Sotomayor DNP Attending Clinician Doctor Unassigned, [place] Attending Clinician U navailable ERNST OLIVAS Attending Clinician Unavailable Ernst Olivas MD Attending Clinician [phone] MARY KAY HARRISON Attending Clinician Unavailable Mary Kay Harrison MD Attending Clinician [phone] Radiology Attending Clinician Unavailable RADIOLOGY Attending Clinician Unavailable Babita Marrufo DO Attending Clinician [phone] Shila Hale MD Attending Clinician [phone] SHILA HLAE Attending Clinician Unavailable LYNN DE PAZ Attending Clinician UnavailLynn Queen NP Attending Clinician [phone] Mehnaz Stovall MD Attending Clinician [phone] Bentley Rebollar MD Attending Clinician [phone] GERA SOTOMAYOR Admitting Clinician Nathalie vailable LUCIA, MITZI Admitting Clinician Unavailable Alexia WILLOUGHBY, Shila Flores Admitting Clinician LYNN DE PAZ Admitting Clinician Unavailabl e Payers Payer Name Policy Type Policy Number Effective Date Expirati on Date Source [facility] [id number] 00:00:00 [employer] [facility] [id number] 2011 00:00:00 Problems Condition Name Condition Details Condition Category Status Onset Date Resolution Date Last Treatment Date Treating Clinician Comments Source At risk for falls At risk for falls Disease Active 2022-09 00:00: 00 [facility] Unspecifie d abnormalit ies of gait and mobility Unspecifie d abnormalit ies of gait and mobility Disease Active 2022-09 00:00: 00 [facility] SI (sacroilia c) joint dysfunctio n SI (sacroilia c) joint dysfunctio n Disease Active 09-26 00:00: 00 Overview: Formattin g of this note might be different from the original. Added automatic ally from request for surgery [id number] [facility] Cervical spondylosi s with radiculopa thy Cervical spondylosi s with radiculopa thy Disease Active 02-08 00:00: 00 Overview: Formattin g of this note might be different from the original. Added automatic ally from request for surgery [id number] [facility] Anxiety Anxiety Disease Active 10-22 00:00: 00 [facility] Chronic fatigue Chronic fatigue Disease Active 2 00:00: 00 [facility] History of breast cancer History of breast cancer Disease Active 8 00:00: 00 [facility] Cervical radiculopa thy due to osteoarthr itis of spine Cervical radiculopa thy due to osteoarthr itis of spine Disease Active 03-26 00:00: 00 Overview: Formattin g of this note might be different from the original. Added automatic ally from request for surgery [id number] [facility] Cervical radiculopa thy Cervical radiculopa thy Disease Active 12-11 00:00: 00 Overview: Formattin g of this note might be different from the original. Added automatic ally from request for surgery [id number] [facility] S/P total hip arthroplas ty S/P total hip arthroplas ty Disease Active 03-31 00:00: 00 [facility] Left hip pain Left hip pain Disease Active 02-26 00:00: 00 Overview: Formattin g of this note might be different from the original. Added automatic ally from request for surgery [id number] [facility] Hip pain, acute, left Hip pain, acute, left Disease Active 2015-09 00:00: 00 [facility] S/P orthopedic surgery, follow-up exam S/P orthopedic surgery, follow-up exam Disease Active 2015-09 00:00: 00 [facility] Greater trochanter ic bursitis of left hip Greater trochanter ic bursitis of left hip Disease Active 2015-09 00:00: 00 [facility] Cataracts, both eyes Cataracts, both eyes Disease Active 12-12 00:00: 00 [facility] Dry eye OU Dry eye OU Disease Active 12-12 00:00: 00 [facility] Lumbosacra l spondylosi s without myelopathy Lumbosacra l spondylosi s without myelopathy Disease Active 2013-09 00:00: 00 [facility] Sacroiliac joint dysfunctio n of both sides Sacroiliac joint dysfunctio n of both sides Disease Active 2013-09 00:00: 00 [facility] Myofacial muscle pain Myofacial muscle pain Disease Active 2013-09 00:00: 00 [facility] Acquired absence of breast and nipple Acquired absence of breast and nipple Disease Active 10-19 00:00: 00 [facility] Breast cancer Breast cancer Disease Active 09-28 00:00: 00 [facility] Fracture, cause unspecifie d(E887) Fracture, cause unspecifie d(E887) Disease Active 11-05 00:00: 00 Overview: Formattin g of this note might be different from the original. Left leg and back [facility] Allergies, Adverse Reactions, Alerts Allergy Name Allergy Type Status Severity Reaction(s) Onset Date Inactive Date Treating Clinician Comments Source Morphine Propensi ty to adverse reaction s Active Itching 2010-09 00:00: 00 With morphine pump [facility] MORPHINE DRUG INGREDI Active ITCHING 2010-09 00:00: 00 [facility] Codeine Propensi ty to adverse reaction s Active Rash 2008-09 00:00: 00 [facility] CODEINE DRUG INGREDI Active Rash 2008-09 00:00: 00 [facility] Social History Social Habit Start Date Stop Date Quantity Comments Source History SDOH Alcohol Frequency [facility] History SDOH Alcohol Std Drinks [facility] History SDOH Alcohol Binge [facility] Sexual orientation [facility] Exposure to SARS-CoV-2 (event) 2022-04-15 00:00:00 2022-04-25 16:01:00 Not sure [facility] Alcohol intake 2021-10-19 00:00:00 2021-10-19 00:00:00 Current drinker of alcohol (finding) [facility] History of Social function 2020-04-18 00:00:00 2020-04-18 00:00:00 [facility] Tobacco use and exposure 2019-05-20 00:00:00 2019-05-20 00:00:00 Smokeless tobacco non-user [facility] History of tobacco use 2012-09-21 00:00:00 Cigarette Smoker [facility] Alcohol Comment 2009-10-22 00:00:00 2009-10-22 00:00:00 only once monthly [facility] Sex Ass[birth year] At 1955 00:00:00 1955 00:00:00 [facility] Smoking Status Start Date Stop Date Source Ex-smoker 2019-05-20 00:00:00 2019-05-20 00:00:00 [facility] Medications Ordered Medication Name Filled Medication Name Start Date Stop Date Current Medication? Ordering Clinician Indication Dosage Frequency Signature (SIG) Comments Components Source triamcinolo ne acetonide (KENALOG) injection 40 mg 2022-09 17:30: 00 08-04 17:30 :00 No [id number] [facility] triamcinolo ne acetonide (KENALOG) injection 40 mg 2022-09 17:30: 00 08-04 17:30 :00 No [id number] 40mg 40 mg, Intra-talia cular, ONCE, 1 dose, On Thu08/04/23 at 1130, Routine [facility] triamcinolo ne acetonide (KENALOG) injection 40 mg 2022-09 17:30: 00 08-04 17:30 :00 No [id number] 40mg [facility] triamcinolo ne acetonide (KENALOG) injection 40 mg 2022-09 17:30: 00 08-04 17:30 :00 No [id number] 40mg 40 mg, Intra-talia cular, ONCE, 1 dose, On Thu08/04/23 at 1130, Routine [facility] triamcinolo ne acetonide (KENALOG) injection 40 mg 2022-09 17:30: 00 08-04 17:30 :00 No [id number] 40mg [facility] triamcinolo ne acetonide (KENALOG) injection 40 mg 2022-09 17:30: 00 08-04 17:30 :00 No [id number] 40mg 40 mg, Intra-talia cular, ONCE, 1 dose, On Thu08/04/23 at 1130, Routine [facility] valACYclovi r 500 mg tablet 2022-09 00:00: 00 08-10 05:59 :00 Yes [id number] 500mg Take 1 tablet by mouth in the morning and 1 tablet in the evening. Do all this for [address] [facility] valACYclovi r 500 mg tablet 2022-09 00:00: 00 08-10 05:59 :00 Yes [id number] 500mg Take 1 tablet by mouth in the morning and 1 tablet in the evening. Do all this for [address] [facility] valACYclovi r 500 mg tablet 2022-09 00:00: 00 08-10 05:59 :00 Yes [id number] 500mg Take 1 tablet by mouth in the morning and 1 tablet in the evening. Do all this for [address] [facility] LORazepam (ATIVAN) tablet 1 mg 2022-09 16:15: 00 07-27 15:31 :00 No [id number] 1mg 1 mg, Oral, ONCE, 1 dose, On Thu07/27/23 at 1015, Routine [facility] methylPREDN ISolone (MEDROL, ZENIA,) 4 mg tablets 2022-09 00:00: 00 07-17 04:59 :00 Yes [id number] Take by mouth SEE-INSTRU CTIONS for 6 days. follow package directions [facility] methylPREDN ISolone (MEDROL, ZENIA,) 4 mg tablets 2022-09 00:00: 00 07-17 04:59 :00 Yes [id number] Take by mouth SEE-INSTRU CTIONS for 6 days. follow package directions [facility] gabapentin 300 mg capsule 2022-09 00:00: 00 10-07 05:59 :00 Yes [id number] 300mg Take 1 capsule by mouth in the morning for [address] [facility] methocarbam oL (ROBAXIN) 500 mg tablet 2022-09 00:00: 00 10-07 05:59 :00 Yes [id number] 500mg Take 1 tablet by mouth at bedtime for [address] [facility] gabapentin 300 mg capsule 2022-09 00:00: 00 10-07 05:59 :00 Yes [id number] 300mg Take 1 capsule by mouth in the morning for [address] [facility] methocarbam oL (ROBAXIN) 500 mg tablet 2022-09 00:00: 00 10-07 05:59 :00 Yes [id number] 500mg Take 1 tablet by mouth at bedtime for [address] [facility] gabapentin 300 mg capsule 2022-09 0-25 00:00: 00 10-07 05:59 :00 Yes [id number] 300mg Take 1 capsule by mouth in the morning for [address] [facility] methocarbam oL (ROBAXIN) 500 mg tablet 2022-09 0-25 00:00: 00 10-07 05:59 :00 Yes [id number] 500mg Take 1 tablet by mouth at bedtime for [address] [facility] gabapentin 300 mg capsule 2022-09 0-25 00:00: 00 10-07 05:59 :00 Yes [id number] 300mg Take 1 capsule by mouth in the morning for [address] [facility] methocarbam oL (ROBAXIN) 500 mg tablet 2022-09 0-25 00:00: 00 10-07 05:59 :00 Yes [id number] 500mg Take 1 tablet by mouth at bedtime for [address] [facility] gabapentin 300 mg capsule 2022-09 0-25 00:00: 00 10-07 05:59 :00 Yes [id number] 300mg Take 1 capsule by mouth in the morning for [address] [facility] methocarbam oL (ROBAXIN) 500 mg tablet 2022-09 0-25 00:00: 00 10-07 05:59 :00 Yes [id number] 500mg Take 1 tablet by mouth at bedtime for [address] [facility] gabapentin 300 mg capsule 2022-09 0-25 00:00: 00 10-07 05:59 :00 Yes [id number] 300mg Take 1 capsule by mouth in the morning for [address] [facility] methocarbam oL (ROBAXIN) 500 mg tablet 2022-09 0-25 00:00: 00 10-07 05:59 :00 Yes [id number] 500mg Take 1 tablet by mouth at bedtime for [address] [facility] ondansetron (ZOFRAN (PF)) injection 4 mg 812 23:15: 00 04-25 23:12 :00 No 4mg 4 mg, Slow IV Push, ONCE, 1 dose, On Thu04/25/22 at 1815, MAIKOL [facility] ketorolac (TORADOL) injection 30 mg 10-15 12:30: 00 10-15 11:24 :00 No 30mg 30 mg, Slow IV Push, ONCE, 1 dose, On Thu10/15/21 at 0630, MAIKOL [facility] FENTanyl PF (SUBLIMAZE (PF)) injection 50 mcg 10-15 11:45: 00 10-15 10:51 :00 No 50ug 50 mcg, Slow IV Push, ONCE, 1 dose, On Thu10/15/21 at 0545, Routine [facility] diazePAM (VALIUM) injection 5 mg 10-15 11:45: 00 10-15 10:52 :00 No 5mg 5 mg, Slow IV Push, ONCE, 1 dose, On Thu10/15/21 at 0545, STAT [facility] gabapentin 300 mg capsule 10-15 00:00: 00 Yes [id number] 300mg Take 1 capsule by mouth 3 (three) times daily. [facility] methocarbam oL (ROBAXIN) 500 mg tablet 10-15 00:00: 00 Yes [id number] 500mg Take 1 tablet by mouth every 6 (six) hours as needed for Pain (scale 7-10) (MUSCLE SPASM). [facility] gabapentin 300 mg capsule 10-15 00:00: 00 Yes [id number] 300mg Take 1 capsule by mouth 3 (three) times daily. [facility] methocarbam oL (ROBAXIN) 500 mg tablet 10-15 00:00: 00 Yes [id number] 500mg Take 1 tablet by mouth every 6 (six) hours as needed for Pain (scale 7-10) (MUSCLE SPASM). [facility] gabapentin 300 mg capsule 10-15 00:00: 00 Yes [id number] 300mg Take 1 capsule by mouth 3 (three) times daily. [facility] methocarbam oL (ROBAXIN) 500 mg tablet 2 00:00: 00 Yes [id number] 500mg Take 1 tablet by mouth every 6 (six) hours as needed for Pain (scale 7-10) (MUSCLE SPASM). [facility] gabapentin 300 mg capsule 2 00:00: 00 Yes [id number] 300mg Take 1 capsule by mouth 3 (three) times daily. [facility] methocarbam oL (ROBAXIN) 500 mg tablet 2 00:00: 00 Yes [id number] 500mg Take 1 tablet by mouth every 6 (six) hours as needed for Pain (scale 7-10) (MUSCLE SPASM). [facility] gabapentin 300 mg capsule 10-15 00:00: 00 07-08 00:00 :00 No [id number] 300mg Take 1 capsule by mouth 3 (three) times daily. [facility] methocarbam oL (ROBAXIN) 500 mg tablet 10-15 00:00: 00 07-08 00:00 :00 No [id number] 500mg Take 1 tablet by mouth every 6 (six) hours as needed for Pain (scale 7-10) (MUSCLE SPASM). [facility] gabapentin 300 mg capsule 10-15 00:00: 00 07-08 00:00 :00 No [id number] 300mg Take 1 capsule by mouth 3 (three) times daily. [facility] methocarbam oL (ROBAXIN) 500 mg tablet 10-15 00:00: 00 07-08 00:00 :00 No [id number] 500mg Take 1 tablet by mouth every 6 (six) hours as needed for Pain (scale 7-10) (MUSCLE SPASM). [facility] alendronate 70 mg tablet 2020-09 00:00: 00 Yes 70mg Take 1 tablet by mouth weekly. [facility] alendronate 70 mg tablet 2020-09 00:00: 00 Yes 70mg Take 1 tablet by mouth weekly. [facility] alendronate 70 mg tablet 2020-09 2 00:00: 00 Yes 70mg Take 1 tablet by mouth weekly. [facility] alendronate 70 mg tablet 2020-09 00:00: 00 Yes 70mg Take 1 tablet by mouth weekly. [facility] alendronate 70 mg tablet 2020-09 00:00: 00 Yes 70mg Take 1 tablet by mouth weekly. [facility] alendronate 70 mg tablet 2020-09 00:00: 00 Yes 70mg Take 1 tablet by mouth weekly. [facility] alendronate 70 mg tablet 2020-09 00:00: 00 Yes 70mg Take 1 tablet by mouth weekly. [facility] alendronate 70 mg tablet 2020-09 00:00: 00 Yes 70mg Take 1 tablet by mouth weekly. [facility] alendronate 70 mg tablet 2020-09 00:00: 00 Yes 70mg Take 1 tablet by mouth weekly. [facility] alendronate 70 mg tablet 2020-09 00:00: 00 Yes 70mg Take 1 tablet by mouth weekly. [facility] alendronate 70 mg tablet 2020-09 00:00: 00 Yes 70mg Take 1 tablet by mouth weekly. [facility] gabapentin 300 mg capsule 2020-09 00:00: 00 09-01 05:59 :00 No [id number] 300mg Take 1 capsule by mouth 2 (two) times daily for [address] [facility] magnesium aspartate/v it B6/Zn (ZINC MAGNESIUM ASPARTATE ORAL) 10-19 13:38: 34 Yes Take by mouth. [facility] Cholecalcif alfred, Vitamin D3, (VITAMIN D3) 5,000 unit tablet 10-19 13:38: 34 Yes Take by mouth. [facility] Cyanocobala min (VITAMIN B-12) 1,000 mcg tablet 10-19 13:38: 34 Yes Take by mouth. [facility] ibuprofen (MOTRIN ORAL) 10-19 13:38: 34 Yes 400mg Take [address] [facility] magnesium aspartate/v it B6/Zn (ZINC MAGNESIUM ASPARTATE ORAL) 20200 2-05 13:38: 34 Yes Take by mouth. [facility] Cholecalcif alfred, Vitamin D3, (VITAMIN D3) 5,000 unit tablet 2020-0 2-05 13:38: 34 Yes Take by mouth. [facility] Cyanocobala min (VITAMIN B-12) 1,000 mcg tablet 2020-0 2-05 13:38: 34 Yes Take by mouth. [facility] ibuprofen (MOTRIN ORAL) 0 2-05 13:38: 34 Yes 400mg Take [address] [facility] magnesium aspartate/v it B6/Zn (ZINC MAGNESIUM ASPARTATE ORAL) 20200 205 13:38: 34 Yes Take by mouth. [facility] Cholecalcif alfred, Vitamin D3, (VITAMIN D3) 5,000 unit tablet 0 2-05 13:38: 34 Yes Take by mouth. [facility] Cyanocobala min (VITAMIN B-12) 1,000 mcg tablet 0 2-05 13:38: 34 Yes Take by mouth. [facility] ibuprofen (MOTRIN ORAL) 0 2-05 13:38: 34 Yes 400mg Take [address] [facility] magnesium aspartate/v it B6/Zn (ZINC MAGNESIUM ASPARTATE ORAL) 0 2-05 13:38: 34 Yes Take by mouth. [facility] Cholecalcif alfred, Vitamin D3, (VITAMIN D3) 5,000 unit tablet 0 2-05 13:38: 34 Yes Take by mouth. [facility] Cyanocobala min (VITAMIN B-12) 1,000 mcg tablet 0 2-05 13:38: 34 Yes Take by mouth. [facility] ibuprofen (MOTRIN ORAL) 20200 2-05 13:38: 34 Yes 400mg Take [address] [facility] magnesium aspartate/v it B6/Zn (ZINC MAGNESIUM ASPARTATE ORAL) 20200 2-05 13:38: 34 Yes Take by mouth. [facility] Cholecalcif alfred, Vitamin D3, (VITAMIN D3) 5,000 unit tablet 2020-0 2-05 13:38: 34 Yes Take by mouth. [facility] Cyanocobala min (VITAMIN B-12) 1,000 mcg tablet 2020-0 2-05 13:38: 34 Yes Take by mouth. [facility] ibuprofen (MOTRIN ORAL) 2020-0 2-05 13:38: 34 Yes 400mg Take [address] [facility] magnesium aspartate/v it B6/Zn (ZINC MAGNESIUM ASPARTATE ORAL) 20200 2-05 13:38: 34 Yes Take by mouth. [facility] Cholecalcif alfred, Vitamin D3, (VITAMIN D3) 5,000 unit tablet 2020-0 2-05 13:38: 34 Yes Take by mouth. [facility] Cyanocobala min (VITAMIN B-12) 1,000 mcg tablet 0 2-05 13:38: 34 Yes Take by mouth. [facility] ibuprofen (MOTRIN ORAL) 0 2-05 13:38: 34 Yes 400mg Take [address] [facility] magnesium aspartate/v it B6/Zn (ZINC MAGNESIUM ASPARTATE ORAL) 20200 205 13:38: 34 Yes Take by mouth. [facility] Cholecalcif alfred, Vitamin D3, (VITAMIN D3) 5,000 unit tablet 0 205 13:38: 34 Yes Take by mouth. [facility] Cyanocobala min (VITAMIN B-12) 1,000 mcg tablet 0 2-05 13:38: 34 Yes Take by mouth. [facility] ibuprofen (MOTRIN ORAL) 0 2-05 13:38: 34 Yes 400mg Take [address] [facility] magnesium aspartate/v it B6/Zn (ZINC MAGNESIUM ASPARTATE ORAL) 20200 2-05 13:38: 34 Yes Take by mouth. [facility] Cholecalcif alfred, Vitamin D3, (VITAMIN D3) 5,000 unit tablet 20200 2-05 13:38: 34 Yes Take by mouth. [facility] Cyanocobala min (VITAMIN B-12) 1,000 mcg tablet 2020-0 2-05 13:38: 34 Yes Take by mouth. [facility] ibuprofen (MOTRIN ORAL) 0 205 13:38: 34 Yes 400mg Take [address] [facility] magnesium aspartate/v it B6/Zn (ZINC MAGNESIUM ASPARTATE ORAL) 0 205 13:38: 34 Yes Take by mouth. [facility] Cholecalcif alfred, Vitamin D3, (VITAMIN D3) 5,000 unit tablet 20200 2-05 13:38: 34 Yes Take by mouth. [facility] Cyanocobala min (VITAMIN B-12) 1,000 mcg tablet 2019-0 2-05 13:38: 34 Yes Take by mouth. [facility] ibuprofen (MOTRIN ORAL) 0 205 13:38: 34 Yes 400mg Take [address] [facility] magnesium aspartate/v it B6/Zn (ZINC MAGNESIUM ASPARTATE ORAL) 20200 205 13:38: 34 Yes Take by mouth. [facility] Cholecalcif alfred, Vitamin D3, (VITAMIN D3) 5,000 unit tablet 0 2-05 13:38: 34 Yes Take by mouth. [facility] Cyanocobala min (VITAMIN B-12) 1,000 mcg tablet 0 205 13:38: 34 Yes Take by mouth. [facility] ibuprofen (MOTRIN ORAL) 0 205 13:38: 34 Yes 400mg Take [address] [facility] magnesium aspartate/v it B6/Zn (ZINC MAGNESIUM ASPARTATE ORAL) 20200 2-05 13:38: 34 Yes Take by mouth. [facility] Cholecalcif alfred, Vitamin D3, (VITAMIN D3) 5,000 unit tablet 20200 2-05 13:38: 34 Yes Take by mouth. [facility] Cyanocobala min (VITAMIN B-12) 1,000 mcg tablet 0 2-05 13:38: 34 Yes Take by mouth. [facility] ibuprofen (MOTRIN ORAL) 20200 2-05 13:38: 34 Yes 400mg Take [address] [facility] meloxicam 7.5 mg tablet 2020-0 1-10 00:00: 00 Yes [id number] 7.5mg Take 1 tablet by mouth 2 (two) times daily as needed (Pain). [facility] meloxicam 7.5 mg tablet 2020-0 1-10 00:00: 00 Yes [id number] 7.5mg Take 1 tablet by mouth 2 (two) times daily as needed (Pain). [facility] meloxicam 7.5 mg tablet 2020-0 1-10 00:00: 00 Yes [id number] 7.5mg Take 1 tablet by mouth 2 (two) times daily as needed (Pain). [facility] meloxicam 7.5 mg tablet 2020-0 1-10 00:00: 00 Yes [id number] 7.5mg Take 1 tablet by mouth 2 (two) times daily as needed (Pain). [facility] meloxicam 7.5 mg tablet 2020-0 1-10 00:00: 00 Yes [id number] 7.5mg Take 1 tablet by mouth 2 (two) times daily as needed (Pain). [facility] meloxicam 7.5 mg tablet 2020-0 1-10 00:00: 00 Yes [id number] 7.5mg Take 1 tablet by mouth 2 (two) times daily as needed (Pain). [facility] meloxicam 7.5 mg tablet 2020-0 1-10 00:00: 00 Yes [id number] 7.5mg Take 1 tablet by mouth 2 (two) times daily as needed (Pain). [facility] meloxicam 7.5 mg tablet 2020-0 1-10 00:00: 00 Yes [id number] 7.5mg Take 1 tablet by mouth 2 (two) times daily as needed (Pain). [facility] meloxicam 7.5 mg tablet 2020-0 1-10 00:00: 00 Yes [id number] 7.5mg Take 1 tablet by mouth 2 (two) times daily as needed (Pain). [facility] meloxicam 7.5 mg tablet 2020-0 1-10 00:00: 00 Yes [id number] 7.5mg Take 1 tablet by mouth 2 (two) times daily as needed (Pain). [facility] meloxicam 7.5 mg tablet 09-23 00:00: 00 Yes [id number] 7.5mg Take 1 tablet by mouth 2 (two) times daily as needed (Pain). [facility] zolpidem 10 mg tablet 2018-09 00:00: 00 Yes [id number] 10mg Take 1 tablet by mouth at bedtime. [facility] diazePAM 2 mg tablet 2018-09 00:00: 00 Yes [id number] 2mg Take 1 tablet by mouth 2 (two) times daily as needed for Anxiety. [facility] zolpidem 10 mg tablet 2018-09 00:00: 00 Yes [id number] 10mg Take 1 tablet by mouth at bedtime. [facility] diazePAM 2 mg tablet 2018-09 00:00: 00 Yes [id number] 2mg Take 1 tablet by mouth 2 (two) times daily as needed for Anxiety. [facility] zolpidem 10 mg tablet 2018-09 00:00: 00 Yes [id number] 10mg Take 1 tablet by mouth at bedtime. [facility] diazePAM 2 mg tablet 2018-09 00:00: 00 Yes [id number] 2mg Take 1 tablet by mouth 2 (two) times daily as needed for Anxiety. [facility] zolpidem 10 mg tablet 2018-09 00:00: 00 Yes [id number] 10mg Take 1 tablet by mouth at bedtime. [facility] diazePAM 2 mg tablet 2018-09 00:00: 00 Yes [id number] 2mg Take 1 tablet by mouth 2 (two) times daily as needed for Anxiety. [facility] zolpidem 10 mg tablet 2018-09 00:00: 00 Yes [id number] 10mg Take 1 tablet by mouth at bedtime. [facility] diazePAM 2 mg tablet 2018-09 00:00: 00 Yes [id number] 2mg Take 1 tablet by mouth 2 (two) times daily as needed for Anxiety. [facility] zolpidem 10 mg tablet 2018-09 00:00: 00 Yes [id number] 10mg Take 1 tablet by mouth at bedtime. [facility] diazePAM 2 mg tablet 2018-09 00:00: 00 Yes [id number] 2mg Take 1 tablet by mouth 2 (two) times daily as needed for Anxiety. [facility] zolpidem 10 mg tablet 2018-09 00:00: 00 Yes [id number] 10mg Take 1 tablet by mouth at bedtime. [facility] diazePAM 2 mg tablet 2018-09 00:00: 00 Yes [id number] 2mg Take 1 tablet by mouth 2 (two) times daily as needed for Anxiety. [facility] zolpidem 10 mg tablet 2018-09 00:00: 00 Yes [id number] 10mg Take 1 tablet by mouth at bedtime. [facility] diazePAM 2 mg tablet 2018-09 00:00: 00 Yes [id number] 2mg Take 1 tablet by mouth 2 (two) times daily as needed for Anxiety. [facility] zolpidem 10 mg tablet 2018-09 00:00: 00 Yes [id number] 10mg Take 1 tablet by mouth at bedtime. [facility] diazePAM 2 mg tablet 2018-09 00:00: 00 Yes [id number] 2mg Take 1 tablet by mouth 2 (two) times daily as needed for Anxiety. [facility] zolpidem 10 mg tablet 2018-09 00:00: 00 Yes [id number] 10mg Take 1 tablet by mouth at bedtime. [facility] diazePAM 2 mg tablet 2018-09 00:00: 00 Yes [id number] 2mg Take 1 tablet by mouth 2 (two) times daily as needed for Anxiety. [facility] zolpidem 10 mg tablet 2018-09 00:00: 00 Yes [id number] 10mg Take 1 tablet by mouth at bedtime. [facility] diazePAM 2 mg tablet 2018-09 00:00: 00 Yes [id number] 2mg Take 1 tablet by mouth 2 (two) times daily as needed for Anxiety. [facility] cyclobenzap rine 7.5 mg tablet 04-06 00:00: 00 Yes [facility] cyclobenzap rine 7.5 mg tablet 04-06 00:00: 00 Yes [facility] cyclobenzap rine 7.5 mg tablet 04-06 00:00: 00 Yes [facility] cyclobenzap rine 7.5 mg tablet 04-06 00:00: 00 Yes [facility] cyclobenzap rine 7.5 mg tablet 04-06 00:00: 00 Yes [facility] cyclobenzap rine 7.5 mg tablet 04-06 00:00: 00 Yes [facility] cyclobenzap rine 7.5 mg tablet 04-06 00:00: 00 Yes [facility] cyclobenzap rine 7.5 mg tablet 04-06 00:00: 00 Yes [facility] cyclobenzap rine 7.5 mg tablet 04-06 00:00: 00 Yes [facility] cyclobenzap rine 7.5 mg tablet 04-06 00:00: 00 Yes [facility] cyclobenzap rine 7.5 mg tablet 04-06 00:00: 00 Yes [facility] albuterol (PROAIR HFA) 90 mcg/actuati on inhaler 01-11 00:00: 00 Yes [id number] 2{puff} Inhale 2 Puffs every 4 (four) hours as needed for Wheezing or Shortness of Breath. [facility] ity [facility] albuterol (PROAIR HFA) 90 mcg/actuati on inhaler 01-11 00:00: 00 Yes [id number] 2{puff} Inhale 2 Puffs every 4 (four) hours as needed for Wheezing or Shortness of Breath. [facility] ity [facility] albuterol (PROAIR HFA) 90 mcg/actuati on inhaler 01-11 00:00: 00 Yes [id number] 2{puff} Inhale 2 Puffs every 4 (four) hours as needed for Wheezing or Shortness of Breath. [facility] albuterol (PROAIR HFA) 90 mcg/actuati on inhaler 01-11 00:00: 00 Yes [id number] 2{puff} Inhale 2 Puffs every 4 (four) hours as needed for Wheezing or Shortness of Breath. [facility] albuterol (PROAIR HFA) 90 mcg/actuati on inhaler 01-11 00:00: 00 Yes [id number] 2{puff} Inhale 2 Puffs every 4 (four) hours as needed for Wheezing or Shortness of Breath. [facility] albuterol (PROAIR HFA) 90 mcg/actuati on inhaler 01-11 00:00: 00 Yes [id number] 2{puff} Inhale 2 Puffs every 4 (four) hours as needed for Wheezing or Shortness of Breath. [facility] albuterol (PROAIR HFA) 90 mcg/actuati on inhaler 01-11 00:00: 00 Yes [id number] 2{puff} Inhale 2 Puffs every 4 (four) hours as needed for Wheezing or Shortness of Breath. [facility] albuterol (PROAIR HFA) 90 mcg/actuati on inhaler 01-11 00:00: 00 Yes [id number] 2{puff} Inhale 2 Puffs every 4 (four) hours as needed for Wheezing or Shortness of Breath. [facility] albuterol (PROAIR HFA) 90 mcg/actuati on inhaler 01-11 00:00: 00 Yes [id number] 2{puff} Inhale 2 Puffs every 4 (four) hours as needed for Wheezing or Shortness of Breath. [facility] albuterol (PROAIR HFA) 90 mcg/actuati on inhaler 01-11 00:00: 00 Yes [id number] 2{puff} Inhale 2 Puffs every 4 (four) hours as needed for Wheezing or Shortness of Breath. [facility] albuterol (PROAIR HFA) 90 mcg/actuati on inhaler 01-11 00:00: 00 Yes [id number] 2{puff} Inhale 2 Puffs every 4 (four) hours as needed for Wheezing or Shortness of Breath. [facility] fluticasone 50 mcg/actuati on nasal spray 06-04 00:00: 00 Yes [id number] 1{spray } Use 1 [place] in each nostril 2 (two) times daily. [facility] fluticasone 50 mcg/actuati on nasal spray 06-04 00:00: 00 Yes [id number] 1{spray } Use 1 [place] in each nostril 2 (two) times daily. [facility] fluticasone 50 mcg/actuati on nasal spray 06-04 00:00: 00 Yes [id number] 1{spray } Use 1 [place] in each nostril 2 (two) times daily. [facility] fluticasone 50 mcg/actuati on nasal spray 06-04 00:00: 00 Yes [id number] 1{spray } Use 1 [place] in each nostril 2 (two) times daily. [facility] fluticasone 50 mcg/actuati on nasal spray 06-04 00:00: 00 Yes [id number] 1{spray } Use 1 [place] in each nostril 2 (two) times daily. [facility] fluticasone 50 mcg/actuati on nasal spray 06-04 00:00: 00 Yes [id number] 1{spray } Use 1 [place] in each nostril 2 (two) times daily. [facility] fluticasone 50 mcg/actuati on nasal spray 06-04 00:00: 00 Yes [id number] 1{spray } Use 1 [place] in each nostril 2 (two) times daily. [facility] fluticasone 50 mcg/actuati on nasal spray 06-04 00:00: 00 Yes [id number] 1{spray } Use 1 [place] in each nostril 2 (two) times daily. [facility] fluticasone 50 mcg/actuati on nasal spray 06-04 00:00: 00 Yes [id number] 1{spray } Use 1 [place] in each nostril 2 (two) times daily. [facility] fluticasone 50 mcg/actuati on nasal spray 06-04 00:00: 00 Yes [id number] 1{spray } Use 1 [place] in each nostril 2 (two) times daily. [facility] fluticasone 50 mcg/actuati on nasal spray 06-04 00:00: 00 Yes [id number] 1{spray } Use 1 [place] in each nostril 2 (two) times daily. [facility] Immunizations Ordered Immunization Name Filled Immunization Name Date Status Comments Source Influenza Virus Vaccine Quad IM 3+ YRS 2018-08-18 00:00:00 Completed [facility] Influenza Virus Vaccine Quad IM 3+ YRS 2018-08-18 00:00:00 Completed [facility] Influenza Virus Vaccine Quad IM 3+ YRS 2018-08-18 00:00:00 Completed [facility] Influenza Virus Vaccine Quad IM 3+ YRS 2018-08-18 00:00:00 Completed [facility] Influenza Virus Vaccine Quad IM 3+ YRS Unknown Completed [facility] Influenza Virus Vaccine Quad IM 3+ YRS Unknown Completed [facility] Influenza Virus Vaccine Quad IM 3+ YRS Unknown Completed [facility] Influenza Virus Vaccine Quad IM 3+ YRS Unknown Completed [facility] Influenza Virus Vaccine Quad IM 3+ YRS Unknown Completed [facility] Influenza Virus Vaccine Quad IM 3+ YRS Unknown Completed [facility] Influenza Virus Vaccine Quad IM 3+ YRS Unknown Completed [facility] Vital Signs Vital Name Observation Time Observation Value Comments S ource Systolic blood pressure 2023-08-04 17:12:00 159 mm[Hg] General acute hospital Diastolic blood pressure 2023-08-04 17:12:00 72 mm[Hg] General acute hospital Heart rate 2023-08-04 17:12:00 93 /min [facility] Body temperature 2023-08-04 17:12:00 36 Martha [facility] Body height 2023-08-04 17:12:00 144.8 cm [facility] Body weight 2023-08-04 17:12:00 52.164 kg [facility] BMI 2023-08-04 17:12:00 24.89 kg/m2 [facility] Systolic blood pressure 2023-07-27 15:30:00 148 mm[Hg] General acute hospital Diastolic blood pressure 2023-07-27 15:30:00 81 mm[Hg] General acute hospital Heart rate 2023-07-27 15:30:00 95 /min [facility] Respiratory rate 2023-07-27 15:30:00 18 /min [facility] Oxygen saturation in Arterial blood by Pulse oximetry 2023-07-27 15:30:00 93 /min General acute hospital Diastolic blood pressure 2023-07-08 21:56:00 96 mm[Hg] General acute hospital Heart rate 2023-07-08 21:56:00 106 /min [facility] Body temperature 2023-07-08 21:56:00 36.94 Martha [facility] Respiratory rate 2023-07-08 21:56:00 16 /min [facility] Body height 2023-07-08 21:56:00 144.8 cm [facility] Body weight 2023-07-08 21:56:00 53.071 kg [facility] BMI 2023-07-08 21:56:00 25.32 kg/m2 [facility] Oxygen saturation in Arterial blood by Pulse oximetry 2023-07-08 21:56:00 92 /min General acute hospital Systolic blood pressure 2023-07-08 21:56:00 148 mm[Hg] General acute hospital Systolic blood pressure 2022-04-26 00:30:00 130 mm[Hg] General acute hospital Diastolic blood pressure 2022-04-26 00:30:00 78 mm[Hg] General acute hospital Heart rate 2022-04-26 00:30:00 98 /min [facility] Respiratory rate 2022-04-26 00:30:00 18 /min [facility] Oxygen saturation in Arterial blood by Pulse oximetry 2022-04-26 00:30:00 97 /min General acute hospital Body temperature 2022-04-25 23:30:00 36 Martha [facility] Body height 2022-04-25 21:03:00 149.9 cm [facility] Body weight 2022-04-25 21:03:00 54.432 kg [facility] BMI 2022-04-25 21:03:00 24.24 kg/m2 [facility] Systolic blood pressure 2021-10-15 10:24:00 153 mm[Hg] General acute hospital Diastolic blood pressure 2021-10-15 10:24:00 86 mm[Hg] General acute hospital Heart rate 2021-10-15 10:24:00 115 /min [facility] Body temperature 2021-10-15 10:24:00 35.94 Martha [facility] Respiratory rate 2021-10-15 10:24:00 20 /min [facility] Body height 2021-10-15 10:24:00 147.3 cm [facility] Body weight 2021-10-15 10:24:00 49.896 kg [facility] BMI 2021-10-15 10:24:00 22.99 kg/m2 [facility] Oxygen saturation in Arterial blood by Pulse oximetry 2021-10-15 10:24:00 92 /min General acute hospital Procedures Procedure Date / Time Performed Performing Clinician Source MR CERVICAL SPINE WO CONTRAST 2023-07-27 16:58:44 Gera Sotomayor [facility] ASSIGNMENT OF BENEFITS 2023-07-08 21:37:50 Docto r Unassigned, [place] [facility] AUTHORIZATION FOR RELEASE OF PHI 2022-05-21 05:01:00 Doctor Unassigned, [place] [facility] CT CERVICAL SPINE WO CONTRAST 2022-04-26 00:00:00 Ernst Olivas [facility] CT LUMBAR SPINE WO CONTRAST 2022-04-26 00:00:00 Ernst Olivas [facility] CT THORACIC SPINE WO CONTRAST 2022-04-26 00:00:00 Ernst Olivas [facility] Encounters Start Date/Time End Date/Time Encounter Type Admission Type Attending Clinicians Care Facility Care Department Encounter ID Source 2021-07-14 07:52:30 Emergency [facility] [id number] [facility] 2023-08-21 18:03:38 2023-08-21 18:03:38 Outpatient [facility] [id number] Davis 2023-08-17 16:23:37 2023-08-17 16:23:37 Outpatient [facility] [id number] Davis 2023-08-04 11:40:00 2023-08-04 11:40:00 Office Visit Gera León [facility] 1.2.840.114 350.1.13.10 4.2.7.2.[id number] [facility] 2023-08-04 11:40:00 2023-08-04 11:27:14 Outpatient R GERA LEÓN [facility] [id number] [facility] 2023-07-28 11:40:00 2023-07-28 11:40:00 Outpatient R GERA LEÓN [facility] [id number] [facility] 2023-07-27 10:30:00 2023-07-27 23:59:00 Outpatient R GERA LEÓN [facility] [id number] [facility] 2023-07-27 08:49:58 2023-07-27 23:59:00 Hospital Encounter Gera León [facility] 1.2.840.114 350.1.13.10 4.2.7.2.[id number] [facility] 2023-07-08 16:40:00 2023-07-08 17:03:05 Outpatient R GERA LEÓN [facility] [id number] [facility] 2023-07-08 16:40:00 2023-07-08 17:03:05 Office Visit Norberto abbott [facility] 1.2840.114 350.1.13.10 4.2.7.2.[id number] [facility] 2023-07-08 00:00:00 2023-07-08 00:00:00 Orders Only Doctor Unassigned, [place] [facility] 1.2840.114 350.1.13.10 4.2.7.2.[id number] [facility] 2023-05-21 16:40:00 2023-05-21 16:40:00 Outpatient R NORBERTO ABBOTT [facility] [id number] [facility] 2022-05-21 00:00:00 2022-05-21 00:00:00 Orders Only Doctor Unassigned, [place] [facility] 1.2840.114 350.1.13.10 4.2.7.2.[id number] [facility] 2022-04-25 16:05:00 2022-04-25 20:41:00 Emergency X ERNST OLIVAS [facility] E[facility] [id number] [facility] 2022-04-25 16:05:00 2022-04-25 20:41:00 Emergency Ernst Olivas [facility] 1.2840.114 350.1.13.10 4.2.7.2.[id number] [facility] 2021-10-15 04:26:00 2021-10-15 05:53:00 Emergency X MARY KAY HARRISON [facility] [id number] [facility] 2021-10-15 04:26:00 2021-10-15 05:53:00 Emergency Mary Kay Harrison [facility] 1.2840.114 350.1.13.10 4.2.7.2.[id number] [facility] 2021-08-19 00:00:00 2021-08-19 00:00:00 Telephone [facility] 1.840.114 350.1.13.10 4.2.7.2.[id number] [facility] 2021-08-16 13:09:18 2021-08-16 23:59:00 [facility] [id number] [facility] 2021-08-16 13:09:18 2021-08-16 23:59:[address] [facility] 1..114 350.1.13.10 4.2.7.2.[id number] [facility] 2021-08-16 13:09:18 2021-08-16 23:59:00 Outpatient R JONATHANMANISH CASEYLAMONT [facility] [id number] [facility] 2021-08-01 10:40:00 2021-08-01 10:49:20 Outpatient R JONATHAN-MANISH VANOSCAR [facility] [id number] [facility] 2021-08-01 10:30:15 2021-08-01 10:49:20 Office Visit [facility] ..114 350.1.13.10 4.2.7.2.[id number] [facility] 2021-08-01 00:00:00 2021-08-01 00:00:00 Orders Only Doctor Unassigned, [place] [facility] ..114 350.1.13.10 4.2.7.2.[id number] [facility] 2021-04-18 15:08:12 2021-04-18 23:59:00 [facility] 1.2.840.114 350.1.13.10 4.2.7.2.[id number] [facility] 2021-04-18 14:38:07 2021-04-18 15:39:[address] [facility] 1.2.840.114 350.1.13.10 4.2.7.2.[id number] [facility] 2021-04-18 15:06:23 2021-04-18 15:07:00 [facility] 1.2.840.114 350.1.13.10 4.2.7.2.[id number] [facility] 2021-04-18 14:15:00 2021-04-18 14:15:00 Outpatient R JONATHANMANISH SCAR [facility] [id number] [facility] 2021-04-09 16:03:59 2021-04-09 23:59:00 Hospital Encounter Radiology [facility] 1.2.840.114 350.1.13.10 4.2.7.2.[id number] [facility] 2021-04-09 00:00:00 2021-04-09 00:00:00 Outpatient R RADIOLOGY [facility] [id number] [facility] 2021-03-18 09:00:00 2021-03-18 09:00:00 [facility] [id number] [facility] 2021-03-05 10:40:00 2021-03-05 10:40:00 Outpatient R JONATHAN-KU GERA ABBOTT [facility] [id number] [facility] 2020-12-11 13:19:06 2020-12-11 23:59:00 Hospital Encounter JonathanManish scar [facility] 1.2.840.114 350.1.13.10 4.2.7.2.[id number] [facility] 2020-12-11 00:00:00 2020-12-11 00:00:00 Outpatient R JONATHAN-KU VANOSCAR [facility] [id number] [facility] 2020-12-04 11:41:00 2020-12-04 12:46:00 Emergency Babita Marrufo [facility] 1.2.840.114 350.1.13.10 4.2.7.2.[id number] [facility] 2020-11-22 00:00:00 2020-11-22 00:00:00 Telephone JonathanManish scar [facility] 1.2.840.114 350.1.13.10 4.2.7.2.[id number] [facility] 2020-07-26 10:45:33 2020-07-26 16:27:04 Office Visit Jonathan-Ku scar [facility] 1.2.840.114 350.1.13.10 4.2.7.2.[id number] [facility] 2020-07-26 10:45:00 2020-07-26 10:45:00 Outpatient R JONATHAN-KU SCAR [facility] [id number] [facility] 2020-07-26 00:00:00 2020-07-26 00:00:00 Orders Only Doctor Unassigned, [place] [facility] 1.2.840.114 350.1.13.10 4.2.7.2.[id number] [facility] 2020-03-28 19:24:00 2020-03-28 23:59:00 Hospital Encounter Radiology [facility] 1.2.840.114 350.1.13.10 4.2.7.2.686 [id number] 2020-03-28 19:24:00 2020-03-28 23:59:00 Hospital Encounter Radiology [facility] 1.2.840.114 350.1.13.10 4.2.7.2.[id number] [facility] 2020-03-28 19:24:09 2020-03-28 19:24:09 Outpatient R RADIOLOGY [facility] [id number] [facility] 2019-12-20 08:48:31 2020-01-23 15:03:17 [facility] 1.2.840.114 350.1.13.10 4.2.7.2.686 [id number] 2019-12-20 08:48:31 2020-01-23 15:03:17 Telemedici ne Visit Shila Hale [facility] 1.2.840.114 350.1.13.10 4.2.7.2.[id number] [facility] 2020-01-23 14:45:00 2020-01-23 14:45:00 Outpatient R GERA LEÓN [facility] [id number] [facility] 2020-01-23 07:56:45 2020-01-23 08:11:45 Telemedici ne Visit Gera León [facility] 1.2.840.114 350.1.13.10 4.2.7.2.[id number] [facility] 2020-01-23 07:56:45 2020-01-23 08:11:45 Telemedici ne Visit Norberto abbott [facility] 1.2.840.114 350.1.13.10 4.2.7.2.686 [id number] 2019-12-20 15:30:00 2019-12-20 15:30:00 Outpatient R SHILA HALE [facility] [id number] [facility] 2019-12-07 14:00:00 2019-12-07 14:00:00 Outpatient LYNN MARIEE [facility] [id number] [facility] 2019-12-01 00:00:00 2019-12-01 00:00:00 Case Management Lynn De Paz [facility] 1.2840.114 350.1.13.10 4.2.7.2.[id number] [facility] 2019-11-24 14:00:00 2019-11-24 14:00:00 Outpatient LYNN MARIEE [facility] [id number] [facility] 2019-11-07 14:57:00 2019-11-07 23:59:00 Hospital Encounter Shila Hale [facility] 1.2.840.114 350.1.13.10 4.2.7.2.[id number] [facility] 2019-11-07 14:55:00 2019-11-07 14:56:00 Hospital Encounter Norberto abbott [facility] 1.2.840.114 350.1.13.10 4.2.7.2.[id number] [facility] 2019-11-07 14:55:26 2019-11-07 14:55:26 Outpatient R GERA LEÓN [facility] [id number] [facility] 2019-10-27 13:41:07 2019-10-27 23:59:00 Outpatient R GERA LEÓN [facility] [id number] [facility] 2019-10-27 13:41:07 2019-10-27 23:59:00 Outpatient R NORBERTO ABBOTT [facility] [id number] [facility] 2019-10-27 13:41:00 2019-10-27 23:59:00 Hospital Encounter Norberto abbott [facility] 1..840.114 350.1.13.10 4.2.7.2.[id number] [facility] 2019-10-27 12:21:17 2019-10-27 14:26:20 [facility] [place] [facility] 12.840.114 350.1.13.10 4.2.7.2.[id number] [facility] 2019-10-20 00:00:00 2019-10-20 00:00:00 Telephone Mehnaz Stovall [facility] 12.840.114 350.1.13.10 4.2.7.2.[id number] [facility] 2019-10-19 00:00:00 2019-10-19 00:00:00 Orders Only Doctor Unassigned, [place] [facility] 1.2.840.114 350.1.13.10 4.2.7.2.[id number] [facility] 2019-08-24 09:56:49 2019-08-24 09:56:00 Outpatient R NORBERTO PEÑAGERA MIGUEL [facility] [id number] [facility] 2019-05-25 13:22:00 2019-05-25 15:48:00 Hospital Encounter Shila Hale [facility] ([facility]) 1.2.840.114 350.1.13.10 4.2.7.2.[id number] [facility] 2019-05-25 00:00:00 2019-05-25 00:00:00 Orders Only Doctor Unassigned, [place] [facility] 1.2.840.114 350.1.13.10 4.2.7.2.[id number] [facility] 2019-04-28 00:00:00 2019-04-28 00:00:00 Telephone Mehnaz Stovall [facility] 1.2840.114 350.1.13.10 4.2.7.2.[id number] [facility] 2019-04-27 13:46:00 2019-04-27 16:51:00 Hospital Encounter Shila Hale [facility] ([facility]) 1.2.840.114 350.1.13.10 4.2.7.2.[id number] [facility] 2019-04-27 00:00:00 2019-04-27 00:00:00 Orders Only Doctor Unassigned, [place] [facility] 1.2.840.114 350.1.13.10 4.2.7.2.[id number] [facility] 2019-04-21 00:00:00 2019-04-21 00:00:00 Telephone Bentley Rebollar 1.2.840.114 350.1.13.10 4.2.7.2.[id number] [facility] 2019-04-15 12:46:10 2019-04-15 13:16:10 Office Visit Shila Hale [facility] 1.2.840.114 350.1.13.10 4.2.7.2.[id number] [facility] 2019-01-13 12:14:13 2019-01-13 23:59:00 Outpatient LYNN MARIEE [facility] [id number] [facility]
--- NOTE | 2023-09-13 19:36 | ER ---
Nurse's Notes [facility] Name: Cindy Malin Age: 67 yrs Sex: Female : 1955 Arrival Date: 09/13/2023 Time: 18:34 Bed IW3 Private MD: Diagnosis: Acute serous otitis media, left ear Presentation: 09/13 18:39 Chief complaint: [facility] states[facility]. SHE HAS A WHOLE IN HER LEFT EAR AND GOT bp WATER IN IT, NOW SHE HAS LEFT SIDED TWITCHING. Coronavirus screen: At this time, the client does not indicate any symptoms associated with coronavirus-19. Ebola Screen: No symptoms or risks identified at this time. Initial Sepsis Screen: Does the patient meet any 2 criteria? No. Patient's initial sepsis screen is negative. Does the patient have a suspected source of infection? No. Patient's initial sepsis screen is negative. Risk Assessment: Do you want to hurt yourself or someone else? Patient reports no desire to harm self or others. Onset of symptoms was September 12, 2023 at 21:00. 18:39 Method Of Arrival: EMS: [facility] bp 18:39 Acuity: SHAMA 4 bp Triage Assessment: 20:28 General: Appears uncomfortable, Behavior is calm, cooperative. Pain: Complains of pain tl4 in left ear. Historical: - Allergies: 18:40 Allergy Medicine; bp 18:40 Codeine; bp 18:40 Benadryl; bp - Home Meds: 18:40 Valium 10 mg Oral tab 1 tab 2 times per day [Active]; bp - PMHx: 18:40 breast cancer; Back pain; bp - PSHx: 18:40 hip replacement- Left; bp - Immunization history:: Adult Immunizations up to date. - Social history:: Smoking status: unknown. Screenin:29 [facility] ED Fall Risk Assessment (Adult) History of falling in the last 3 months, tl4 including since admission No falls in past 3 months (0 pts) Confusion or Disorientation No (0 pts) Intoxicated or Sedated No (0 pts) Impaired Gait No (0 pts) Mobility Assist Device Used No (0 pt) Altered Elimination No (0 pt) Score/Fall Risk Level 0 - 2 = Low Risk. Abuse screen: Denies threats or abuse. Denies injuries from another. Nutritional screening: No deficits noted. Tuberculosis screening: No symptoms or risk factors identified. Assessment: 20:29 Reassessment: No changes from previously documented assessment. Patient and/or family tl4 updated on plan of care and expected duration. Pain level reassessed. Patient is alert, oriented x 3, equal unlabored respirations, skin warm/dry/pink. Vital Signs: 18:39 BP 163 / 94; Pulse 100; Resp 16; Temp 98; Pulse Ox 98% ; bp 20:29 BP 144 / 56; Pulse 88; Resp 16; Pulse Ox 97% on R/A; tl4 ED Course: 18:36 Patient arrived in ED. rg4 18:40 Triage completed. bp 18:55 Bryant Stanford MD is Attending Physician. ec2 20:30 Patient has correct armband on for positive identification. Provided Education on: ED tl4 process. 20:30 No provider procedures requiring assistance completed. Patient did not have IV access tl4 during this emergency room visit. 20:31 Arm band placed on Patient placed in an exam room, on a stretcher. tl4 Administered Medications: 19:50 Drug: Acetaminophen PO 1000 mg PO once Route: PO; tl4 20:28 Follow up: Response: No adverse reaction tl4 19:50 Drug: Amoxicillin-Clavulanate PO 875 mg PO once Route: PO; tl4 20:28 Follow up: Response: No adverse reaction tl4 19:52 Drug: Ketorolac IM 30 mg IM once Route: IM; Site: Ventrogluteal RIGHT; tl4 20:28 Follow up: Response: No adverse reaction tl4 Medication: 20:31 VIS not applicable for this client. tl4 Outcome: 19:35 Discharge ordered by . ec2 20:30 Discharged to home ambulatory, tl4 20:30 Condition: stable 20:30 Discharge instructions given to patient, Instructed on discharge instructions, follow up and referral plans. medication usage, Demonstrated understanding of instructions, follow-up care, medications, 20:31 Patient left the ED. tl4 Signatures: Pippa Moran rg4 Celestino Shukla, RN RN bp Bryant Stanford MD MD ec2 Logdahl, Flynn tl4
--- NOTE | 2023-09-13 19:36 | EDPHYS ---
Physician Documentation [facility] Name: Cindy Malin Age: 67 yrs Sex: Female : 1955 Arrival Date: 09/13/2023 Time: 18:34 Bed IW3 Private MD: ED Physician Bryant Stanford HPI: 09/13 19:32 This 67 yrs old Female presents to ER via EMS with complaints of Twitching. ec2 19:32 Patient with history of substance abuse arrives today due to concern for left-sided ear ec2 pain. Patient reports that she is having ear pain that started the past several days and has progressively gotten worse. Patient reports that the pain is causing her to twitch. Patient reports no fevers or chills, no nausea or vomiting. Denies any other concerns. Of note patient has a listed complaint of twitching however when further discussed with the patient she reports that this left ear pain is causing her to have spasms and favor the left ear which is causing the twitching.. Historical: - Allergies: 18:40 Allergy Medicine; bp 18:40 Codeine; bp 18:40 Benadryl; bp - Home Meds: 18:40 Valium 10 mg Oral tab 1 tab 2 times per day [Active]; bp - PMHx: 18:40 breast cancer; Back pain; bp - PSHx: 18:40 hip replacement- Left; bp - Immunization history:: Adult Immunizations up to date. - Social history:: Smoking status: unknown. ROS: 19:32 Constitutional: as per hpi ec2 Exam: 19:32 Constitutional: GEN: NAD Head: atraumatic Eyes: EOMI Ears: External ears are normal. ec2 Left ear with cloudy fluid noted, erythema noted. CV: regular rate LUNGS: no respiratory distress ABD: non-distended SKIN: no evidence of rashes MSK: no evidence of trauma NEURO: moves all extremities equally, cranial nerves II through XII intact, strength intact in all 4 extremities. Vital Signs: 18:39 BP 163 / 94; Pulse 100; Resp 16; Temp 98; Pulse Ox 98% ; bp 20:29 BP 144 / 56; Pulse 88; Resp 16; Pulse Ox 97% on R/A; tl4 MDM: 18:50 Patient medically screened. kb 19:33 Data reviewed: vital signs. ED course: Patient arrives today for evaluation of left ear ec2 pain. Examination remarkable for ear findings as noted above. Presentation consistent with otitis media. Regards to her twitching, I suspect this is more pain mediated than anything, her neurologic exam is reassuring, she has no focal neurologic deficits, she has no issues with p.o. intake or nausea or vomiting to suggest electrolyte disturbances, additionally have a low suspicion for intracranial mass. I will discharge patient home with prescription for antibiotics. . Administered Medications: 19:50 Drug: Acetaminophen PO 1000 mg PO once Route: PO; tl4 20:28 Follow up: Response: No adverse reaction tl4 19:50 Drug: Amoxicillin-Clavulanate PO 875 mg PO once Route: PO; tl4 20:28 Follow up: Response: No adverse reaction tl4 19:52 Drug: Ketorolac IM 30 mg IM once Route: IM; Site: Ventrogluteal RIGHT; tl4 20:28 Follow up: Response: No adverse reaction tl4 Disposition Summary: 09/13/23 19:35 Discharge Ordered Notes: Location: Home ec2 Condition: Stable ec2 Diagnosis - Acute serous otitis media, left ear ec2 Followup: ec2 - With: Private Physician - When: - Reason: Recheck today's complaints Discharge Instructions: - Discharge Summary Sheet ec2 - Otitis Media, Adult ec2 Forms: - SBAR form pf1 - Medication Reconciliation Form ec2 - Thank You Letter ec2 - Antibiotic Education ec2 - Prescription Opioid Use ec2 - Patient Portal Instructions ec2 - Leadership Thank You Letter ec2 Prescriptions: - Augmentin 875-125 mg Oral Tablet - take 1 tablet ORAL route every 12 hours for 10 days; 20 tablet; Refills: 0, ec2 Product Selection Permitted Signatures: Ginny Thomas FNP-C FNP-Ckb Peltier, Brian, RN RN Bryant Loya MD MD ec2 Logdahl, Flynn tl4 Corrections: (The following items were deleted from the chart) 19:34 19:32 Patient with history of substance abuse arrives today due to concern for ec2 left-sided ear pain. Patient reports that she is having ear pain that started the past several days and has progressively gotten worse. Patient reports that the pain is causing her to twitch. Patient reports no fevers or chills, no nausea or vomiting. Denies any other concerns.. ec2
[2023-09-13 20:53] VITALS: BP 144/56; TEMP 98; O2SAT 97
== END ==
LOC: ER 18:34
DX: H65.02 Acute serous otitis media, left ear (principal); Z88.5 Allergy status to narcotic agent; Z88.8 Allergy status to other drugs, medicaments and biological substances
CPT/HCPCS: 96372; 99284

== ENCOUNTER 2024-08-29 16:44 | Observation (INO) | payer OTHER ==
--- OUTSIDE RECORDS SUMMARY | 2024-08-29 16:49 | XMS REPORT | Continuity of Care Document ---
Author Name Unknown Address [address] [place] [address] [facility] thconnect Address [address] [place] [address] Care Team Providers Care Button Puncher Name Role Phone Pamela Winslow Primary Care Physician [phone] GERA SOTOMAYOR Attending Clinician Nathalie vailable Gera Sotomayor DNP Attending Clinician Doctor Unassigned, [place] Attending Clinician U ERNST Moore Attending Clinician Unavailable Ernst Olivas MD Attending Clinician [phone] MARY KAY HARRISON Attending Clinician Unavailable Mary Kay Harrison MD Attending Clinician [phone] Radiology Attending Clinician Unavailable RADIOLOGY Attending Clinician Unavailable Babita Marrufo DO Attending Clinician [phone] Shila Hale MD Attending Clinician [phone] SHILA HALE Attending Clinician Unavailable LYNN DE PAZ Attending Clinician UnavailLynn Queen NP Attending Clinician [phone] Mehnaz Stovall MD Attending Clinician [phone] Bentley Rebollar MD Attending Clinician [phone] GERA SOTOMAYOR Admitting Clinician Nathalie vailable ERNST OLIVAS C Admitting Clinician Unavailable Alexia WILLOUGHBY, Shila Flores Admitting Clinician LYNN DE PAZ Admitting Clinician Unavailabl e Payers Payer Name Policy Type Policy Number Effective Date Expirati on Date Source [facility] PLUS [id number] 00:00:00 [facility] DUAL COMP HMO D SNP [id number] 2022 00:00:00 [facility] MEDICAID [id number] 2011 00:00:00 Problems Condition Name Condition Details Condition Category Status Onset Date Resolution Date Last Treatment Date Treating Clinician Comments Source At risk for falls At risk for falls Disease Active 2022-09 00:00: 00 [facility] Unspecifie d abnormalit ies of gait and mobility Unspecifie d abnormalit ies of gait and mobility Disease Active 2022-09 00:00: 00 [facility] SI (sacroilia c) joint dysfunctio n SI (sacroilia c) joint dysfunctio n Disease Active 09-26 00:00: 00 Overview: Formattin g of this note might be different from the original. Added automatic ally from request for surgery [id number] [facility] Cervical spondylosi s with radiculopa thy Cervical spondylosi s with radiculopa thy Disease Active 02-08 00:00: 00 Overview: Formattin g of this note might be different from the original. Added automatic ally from request for surgery [id number] [facility] Anxiety Anxiety Disease Active 10-22 00:00: 00 [facility] Chronic fatigue Chronic fatigue Disease Active 10-22 00:00: 00 [facility] History of breast cancer History of breast cancer Disease Active 8 00:00: 00 [facility] Cervical radiculopa thy due to osteoarthr itis of spine Cervical radiculopa thy due to osteoarthr itis of spine Disease Active 03-26 00:00: 00 Overview: Formattin g of this note might be different from the original. Added automatic ally from request for surgery [id number] [facility] Cervical radiculopa thy Cervical radiculopa thy Disease Active 12-11 00:00: 00 Overview: Formattin g of this note might be different from the original. Added automatic ally from request for surgery [id number] [facility] S/P total hip arthroplas ty S/P total hip arthroplas ty Disease Active 03-31 00:00: 00 [facility] Left hip pain Left hip pain Disease Active 02-26 00:00: 00 Overview: Formattin g of this note might be different from the original. Added automatic ally from request for surgery [id number] [facility] Hip pain, acute, left Hip pain, acute, left Disease Active 2015-09 00:00: 00 [facility] S/P orthopedic surgery, follow-up exam S/P orthopedic surgery, follow-up exam Disease Active 2015-09 00:00: 00 [facility] Greater trochanter ic bursitis of left hip Greater trochanter ic bursitis of left hip Disease Active 2015-09 00:00: 00 [facility] Cataracts, both eyes Cataracts, both eyes Disease Active 12-12 00:00: 00 [facility] Dry eye OU Dry eye OU Disease Active 12-12 00:00: 00 [facility] Lumbosacra l spondylosi s without myelopathy Lumbosacra l spondylosi s without myelopathy Disease Active 2013-09 00:00: 00 [facility] Sacroiliac joint dysfunctio n of both sides Sacroiliac joint dysfunctio n of both sides Disease Active 2013-09 00:00: 00 [facility] Myofacial muscle pain Myofacial muscle pain Disease Active 2013-09 00:00: 00 [facility] Acquired absence of breast and nipple Acquired absence of breast and nipple Disease Active 2-05 00:00: 00 [facility] Breast cancer Breast cancer Disease Active 09-28 00:00: 00 [facility] Fracture, cause unspecifie d(E887) Fracture, cause unspecifie d(E887) Disease Active 11-05 00:00: 00 Overview: Formattin g of this note might be different from the original. Left leg and back [facility] Allergies, Adverse Reactions, Alerts Allergy Name Allergy Type Status Severity Reaction(s) Onset Date Inactive Date Treating Clinician Comments Source Codeine (Not Checked) Propensi ty to adverse reaction to drug Active 2023-09 00:00: 00 Vu Davis Morphine Propensi ty to adverse reaction s Active Itching 2010-09 00:00: 00 With morphine pump [facility] MORPHINE DRUG INGREDI Active ITCHING 2010-09 00:00: 00 [facility] Codeine Propensi ty to adverse reaction s Active Rash 2008-09 00:00: 00 [facility] CODEINE DRUG INGREDI Active Rash 2008-09 00:00: 00 [facility] Social History Social Habit Start Date Stop Date Quantity Comments Source History SDOH Alcohol Frequency [facility] History SDOH Alcohol Std Drinks [facility] History SDOH Alcohol Binge [facility] to SARS-CoV-2 (event) 2022-04-15 00:00:00 2022-04-25 16:01:00 Not sure [facility] Alcohol intake 2021-10-19 00:00:00 2021-10-19 00:00:00 Current drinker of alcohol (finding) [facility] History of Social function 2020-04-18 00:00:00 2020-04-18 00:00:00 [facility] Tobacco use and exposure 2019-05-20 00:00:00 2019-05-20 00:00:00 Smokeless tobacco non-user [facility] History of tobacco use 2012-09-21 00:00:00 Cigarette Smoker [facility] Alcohol Comment 2009-10-22 00:00:00 2009-10-22 00:00:00 only once monthly [facility] Sex Ass[birth year] At 1955 00:00:00 1955 00:00:00 [facility] Smoking Status Start Date Stop Date Source Ex-smoker 2019-05-20 00:00:00 2019-05-20 00:00:00 U [facility] Medications Ordered Medication Name Filled Medication Name Start Date Stop Date Current Medication? Ordering Clinician Indication Dosage Frequency Signature (SIG) Comments Components Source famotidine 20 mg tablet 2023-09 00:00: 00 Yes 1mg Vu Davis Bromfed DM 2 mg-30 mg-10 mg/5 mL oral syrup 2023-09 00:00: 00 Yes 10mg/5 mL Vu Davis triamcinolo ne acetonide (KENALOG) injection 40 mg 01-11 14:10: 00 01-11 14:07 :00 No [id number] 40mg 40 mg, Intramuscu lar, ONCE, 1 dose, On Thu01/12/24 at 0915, Routine [facility] alendronate 70 mg tablet 01-11 00:00: 00 04-07 04:59 :00 No [id number] 70mg Take 1 tablet by mouth weekly. [facility] gabapentin 300 mg capsule 01-11 00:00: 00 04-12 04:59 :00 No [id number] 300mg Take 1 capsule by mouth in the morning for 90 days. [facility] methocarbam oL 500 mg tablet 01-11 00:00: 00 04-12 04:59 :00 No [id number] 500mg Take 1 tablet by mouth at bedtime for 90 days. [facility] INHALE 1-2 PUFFS EVERY 4-6 HOURS NEEDED AND DIRECTED. 10-13 00:00: 00 Yes [id number] Vu Davis TAKE 1 TABLET DAILY. 10-13 00:00: 00 12-09 00:00 :00 No 20 Vu Davis TAKE 2 TABLETS ON DAY 1 THEN TAKE 1 TABLET A DAY FOR 4 DAYS. 10-13 00:00: 00 12-09 00:00 :00 No 250 Vu Davis TAKE 5 ML EVERY 4 TO 6 HOURS NEEDED. 10-13 00:00: 00 12-09 00:00 :00 No [id number] Vu Davis AMOXICILLIN /CLAVULANAT E POTASSIUM 875-125 MG TABS 2022-09 00:00: 00 Yes Vu Davis TAKE 5 ML EVERY 4 TO 6 HOURS NEEDED. 2022-09 2 00:00: 00 12-09 00:00 :00 No [id number] uV Davis TAKE 2 TABLETS ON DAY 1 THEN TAKE 1 TABLET A DAY FOR 4 DAYS. 2022-09 00:00: 00 12-09 00:00 :00 No 250 Vu Davis TAKE 1 TABLET DAILY. 2022-09 00:00: 00 12-09 00:00 :00 No 20 Vu Davis TAKE 1 TABLET 3 TIMES DAILY. 2022-09 00:00: 00 12-09 00:00 :00 No 1 Vu Davis TAKE 1 TABLET 3 TIMES DAILY. 2022-09 00:00: 00 12-09 00:00 :00 No 1 Vu Davis TAKE 2 TABLETS ON DAY 1 THEN TAKE 1 TABLET A DAY FOR 4 DAYS. 2022-09 2 00:00: 00 12-09 00:00 :00 No 250 Vu Davis TAKE 5 ML EVERY 4 TO 6 HOURS NEEDED. 2022-09 2 00:00: 00 12-09 00:00 :00 No [id number] Vu Davis triamcinolo ne acetonide (KENALOG) injection 40 mg 2022-09 17:30: 00 08-04 17:30 :00 No [id number] 40mg [facility] VALACYCLOVI R HYDROCHLORI DE 500 MG TABS 2022-09 00:00: 00 Yes Vu Davis valACYclovi r 500 mg tablet 2022-09 00:00: 00 08-10 05:59 :00 No [id number] 500mg Take 1 tablet by mouth in the morning and 1 tablet in the evening. Do all this for 5 days. [facility] LORazepam (ATIVAN) tablet 1 mg 2022-09 16:15: 00 07-27 15:31 :00 No [id number] 1mg 1 mg, Oral, ONCE, 1 dose, On Thu07/27/23 at 1015, Routine [facility] METHYLPREDN ISOLONE DOSE PACK 4 MG TBPK 2022-09 00:00: 00 Yes Vu Davis methylPREDN ISolone (MEDROL, ZENIA,) 4 mg tablets 2022-09 00:00: 00 07-17 04:59 :00 No [id number] Take by mouth SEE-INSTRU CTIONS for 6 days. follow package directions [facility] METHOCARBAM OL 500 MG TABS 2022-09 00:00: 00 Yes Vu Davis GABAPENTIN 300 MG 2022-09 00:00: 00 Yes Vu Davis gabapentin 300 mg capsule 2022-09 00:00: 00 10-07 05:59 :00 No [id number] 300mg Take 1 capsule by mouth in the morning for 90 days. [facility] methocarbam oL (ROBAXIN) 500 mg tablet 2022-09 00:00: 00 10-07 05:59 :00 No [id number] 500mg Take 1 tablet by mouth at bedtime for 90 days. [facility] TAKE 3 TABLETS BY MOUTH ONCE DAILY FOR 5 DAYS 04-14 00:00: 00 Yes Vu Davis PERMETHRIN 5 % CREA 04-08 00:00: 00 Yes Vu Davis DIAZEPAM 2 MG TABS 04-08 00:00: 00 Yes Vu Davis SULFAMETHOX AZOLE/TRIME THOPRIM DS 800-160 MG TABS 04-08 00:00: 00 Yes Vu Davis PREDNISONE 10 MG TABS 04-08 00:00: 00 Yes Vu Davis TAKE 1 TABLET BY MOUTH EVERY 8 HOURS NEEDED 03-15 00:00: 00 Yes Vu Frantz Ryan APPLY DIRECTED TOPICALLY ONE TIME WASH AFTER 12 HOURS 03-15 00:00: 00 Yes Vu Frantz Ryan PANTOPRAZOL E SODIUM 40 MG TBEC 01-06 00:00: 00 Yes Vu Davis ALBUTEROL SULFATE HFA 108 (90 Base) MCG/ACT AERS 4- 00:00: 00 Yes Vu Davis ALPRAZOLAM 1 MG TABS 4-25 00:00: 00 Yes Vu Davis PANTOPRAZOL E SODIUM 40 MG TBEC 4-06 00:00: 00 Yes Vu Davis ALPRAZOLAM 1 MG TABS 1-10 00:00: 00 Yes Vu Davis ondansetron (ZOFRAN (PF)) injection 4 mg 04-25 23:15: 00 04-25 23:12 :00 No 4mg 4 mg, Slow IV Push, ONCE, 1 dose, On Thu04/25/22 at 1815, MAIKOL [facility] ketorolac (TORADOL) injection 30 mg - 12:30: 00 10-15 11:24 :00 No 30mg 30 mg, Slow IV Push, ONCE, 1 dose, On Thu10/15/21 at 0630, MAIKOL [facility] FENTanyl PF (SUBLIMAZE (PF)) injection 50 mcg 10-15 11:45: 00 10-15 10:51 :00 No 50ug 50 mcg, Slow IV Push, ONCE, 1 dose, On Thu10/15/21 at 0545, Routine [facility] diazePAM (VALIUM) injection 5 mg 10-15 11:45: 00 10-15 10:52 :00 No 5mg 5 mg, Slow IV Push, ONCE, 1 dose, On Thu10/15/21 at 0545, STAT [facility] gabapentin 300 mg capsule 2- 00:00: 00 07-08 00:00 :00 No [id number] 300mg Take 1 capsule by mouth 3 (three) times daily. [facility] methocarbam oL (ROBAXIN) 500 mg tablet 2- 00:00: 00 07-08 00:00 :00 No [id number] 500mg Take 1 tablet by mouth every 6 (six) hours as needed for Pain (scale 7-10) (MUSCLE SPASM). [facility] alendronate 70 mg tablet 2020-09 00:00: 00 01-11 00:00 :00 No 70mg Take 1 tablet by mouth weekly. [facility] gabapentin 300 mg capsule 2020-09 00:00: 00 09-01 05:59 :00 No [id number] 300mg Take 1 capsule by mouth 2 (two) times daily for 30 days. [facility] ibuprofen (MOTRIN ORAL) 10-19 13:38: 34 Yes 400mg Take 400 mg by mouth. [facility] Cholecalcif alfred, Vitamin D3, (VITAMIN D3) 5,000 unit tablet 10-19 13:38: 34 Yes Take by mouth. [facility] Cyanocobala min (VITAMIN B-12) 1,000 mcg tablet 10-19 13:38: 34 Yes Take by mouth. [facility] meloxicam 7.5 mg tablet 09-23 00:00: 00 Yes [id number] 7.5mg Take 1 tablet by mouth 2 (two) times daily as needed (Pain). [facility] zolpidem 10 mg tablet 2018-09 00:00: 00 Yes [id number] 10mg Take 1 tablet by mouth at bedtime. [facility] diazePAM 2 mg tablet 2018-09 00:00: 00 Yes [id number] 2mg Take 1 tablet by mouth 2 (two) times daily as needed for Anxiety. [facility] cyclobenzap rine 7.5 mg tablet 04-06 00:00: 00 01-11 00:00 :00 No [facility] albuterol (PROAIR HFA) 90 mcg/actuati on inhaler 01-11 00:00: 00 Yes [id number] 2{puff} Inhale 2 Puffs every 4 (four) hours as needed for Wheezing or Shortness of Breath. [facility] fluticasone 50 mcg/actuati on nasal spray 06-04 00:00: 00 Yes [id number] 1{spray } Use 1 [place] in each nostril 2 (two) times daily. [facility] Immunizations Ordered Immunization Name Filled Immunization Name Date Status Comments Source SHINGRIX VACCINE SHINGRIX VACCINE 2021-03-15 00:00:00 Completed Vu Davis Influenza Virus Vaccine Quad IM 3+ YRS 2018-08-18 00:00:00 Completed [facility] Influenza Virus Vaccine Quad IM 3+ YRS 2018-08-18 00:00:00 Completed [facility] Influenza Virus Vaccine Quad IM 3+ YRS 2018-08-18 00:00:00 Completed [facility] Influenza Virus Vaccine Quad IM 3+ YRS 2018-08-18 00:00:00 Completed [facility] Influenza Virus Vaccine Quad IM 3+ YRS Unknown Completed [facility] Influenza Virus Vaccine Quad IM 3+ YRS Unknown Completed [facility] Influenza Virus Vaccine Quad IM 3+ YRS Unknown Completed [facility] Influenza Virus Vaccine Quad IM 3+ YRS Unknown Completed [facility] Influenza Virus Vaccine Quad IM 3+ YRS Unknown Completed [facility] Vital Signs Vital Name Observation Time Observation Value Comments S ource Systolic blood pressure 2024-01-12 13:14:00 125 mm[Hg] [facility] Diastolic blood pressure 2024-01-12 13:14:00 66 mm[Hg] [facility] Heart rate 2024-01-12 13:14:00 87 /min [facility] Body temperature 2024-01-12 13:14:00 36.22 Martha [facility] Body height 2024-01-12 13:14:00 144.8 cm [facility] Body weight 2024-01-12 13:14:00 54.885 [facility] BMI 2024-01-12 13:14:00 26.18 kg/m2 [facility] Systolic blood pressure 2023-08-04 17:12:00 159 mm[Hg] [facility] Diastolic blood pressure 2023-08-04 17:12:00 72 mm[Hg] [facility] Heart rate 2023-08-04 17:12:00 93 /min [facility] Body temperature 2023-08-04 17:12:00 36 Martha [facility] Body height 2023-08-04 17:12:00 144.8 cm [facility] Body weight 2023-08-04 17:12:00 52.164 kg [facility] BMI 2023-08-04 17:12:00 24.89 kg/m2 [facility] Systolic blood pressure 2023-07-27 15:30:00 148 mm[Hg] [facility] Diastolic blood pressure 2023-07-27 15:30:00 81 mm[Hg] [facility] Heart rate 2023-07-27 15:30:00 95 /min [facility] Respiratory rate 2023-07-27 15:30:00 18 /min [facility] Oxygen saturation in Arterial blood by Pulse oximetry 2023-07-27 15:30:00 93 /min [facility] Diastolic blood pressure 2023-07-08 21:56:00 96 mm[Hg] [facility] Heart rate 2023-07-08 21:56:00 106 /min [facility] Body temperature 2023-07-08 21:56:00 36.94 Martha [facility] Respiratory rate 2023-07-08 21:56:00 16 /min [facility] Body height 2023-07-08 21:56:00 144.8 cm [facility] Body weight 2023-07-08 21:56:00 53.071 kg [facility] BMI 2023-07-08 21:56:00 25.32 kg/m2 [facility] Oxygen saturation in Arterial blood by Pulse oximetry 2023-07-08 21:56:00 92 /min [facility] Systolic blood pressure 2023-07-08 21:56:00 148 mm[Hg] [facility] Systolic blood pressure 2022-04-26 00:30:00 130 mm[Hg] [facility] Diastolic blood pressure 2022-04-26 00:30:00 78 mm[Hg] [facility] Heart rate 2022-04-26 00:30:00 98 /min [facility] Respiratory rate 2022-04-26 00:30:00 18 /min [facility] Oxygen saturation in Arterial blood by Pulse oximetry 2022-04-26 00:30:00 97 /min [facility] Body temperature 2022-04-25 23:30:00 36 Martha [facility] Body height 2022-04-25 21:03:00 149.9 cm [facility] Body weight 2022-04-25 21:03:00 54.432 kg [facility] BMI 2022-04-25 21:03:00 24.24 kg/m2 [facility] Systolic blood pressure 2021-10-15 10:24:00 153 mm[Hg] [facility] Diastolic blood pressure 2021-10-15 10:24:00 86 mm[Hg] [facility] Heart rate 2021-10-15 10:24:00 115 /[facility] Body temperature 2021-10-15 10:24:00 35.94 Martha [facility] Respiratory rate 2021-10-15 10:24:00 20 /min [facility] Body height 2021-10-15 10:24:00 147.3 cm [facility] Body weight 2021-10-15 10:24:00 49.896 kg [facility] BMI 2021-10-15 10:24:00 22.99 kg/m2 [facility] Oxygen saturation in Arterial blood by Pulse oximetry 2021-10-15 10:24:00 92 /min [facility] BP Systolic 2024-07-20 08:32:00 104 mm[Hg] Step hen Frantz Davis BP Diastolic 2024-07-20 08:32:00 73 mm[Hg] [facility] phen F Ryan Weight Measured 2024-07-20 08:32:00 125.20 pounds Vu F Ryan Height Measured 2024-07-20 08:32:00 60.00 inches Vu F Ryan Body Temperature 2024-07-20 08:32:00 97.80 degrees Vu F Ryan Heart Rate 2024-07-20 08:32:00 78.00 /min Lisa en F Ryan Respiratory Rate 2024-07-20 08:32:00 Vu F Ryan Weight Measured 2024-07-06 09:00:00 122.60 pounds Vu F Ryan Height Measured 2024-07-06 09:00:00 60.00 inches Vu F Ryan Body Temperature 2024-07-06 09:00:00 98.20 degrees Vu F Ryan Heart Rate 2024-07-06 09:00:00 77.00 /min Lisa en F Ryan Respiratory Rate 2024-07-06 09:00:00 16.00 /min Vu F Ryan BP Systolic 2024-07-06 09:00:00 137 mm[Hg] Step hen F Ryan BP Diastolic 2024-07-06 09:00:00 84 mm[Hg] [facility] phen F Ryan BP Systolic 2023-10-13 14:46:00 127 mm[Hg] Step hen F Ryan BP Diastolic 2023-10-13 14:46:00 79 mm[Hg] [facility] phen F Ryan Weight Measured 2023-10-13 14:46:00 120.20 pounds Vu F Ryan Height Measured 2023-10-13 14:46:00 60.00 inches Vu F Ryan Body Temperature 2023-10-13 14:46:00 98.40 degrees Vu F Ryan Heart Rate 2023-10-13 14:46:00 93.00 /min Lisa en F Ryan Respiratory Rate 2023-10-13 14:46:00 19.00 /min Vu F Ryan BP Systolic 2023-08-21 18:04:00 Step hen F Ryan BP Diastolic 2023-08-21 18:04:00 [facility] phen F Ryan Weight Measured 2023-08-21 18:04:00 112.00 pounds Vu F Ryan Height Measured 2023-08-21 18:04:00 60.00 inches Vu F Ryan Body Temperature 2023-08-21 18:04:00 Vu F Ryan Heart Rate 2023-08-21 18:04:00 Lisa en F Ryan Respiratory Rate 2023-08-21 18:04:00 Vu F Ryan BP Systolic 2023-08-17 16:32:00 130 mm[Hg] Step hen F Ryan BP Diastolic 2023-08-17 16:32:00 76 mm[Hg] [facility] phen F Ryan Weight Measured 2023-08-17 16:32:00 112.20 pounds Vu Davis Height Measured 2023-08-17 16:32:00 60.00 inches Vu Davis Body Temperature 2023-08-17 16:32:00 98.30 degrees Vu Davis Heart Rate 2023-08-17 16:32:00 97.00 /min Lisa Davis Respiratory Rate 2023-08-17 16:32:00 18.00 /min Vu Davis Procedures Procedure Date / Time Performed Performing Clinician Source MR CERVICAL SPINE WO CONTRAST 2023-07-27 16:58:44 Gera Sotomayor [facility] ASSIGNMENT OF BENEFITS 2023-07-08 21:37:50 Docto r Unassigned, [place] [facility] AUTHORIZATION FOR RELEASE OF PHI 2022-05-21 05:01:00 Doctor Unassigned, [place] [facility] CT CERVICAL SPINE WO CONTRAST 2022-04-26 00:00:00 Ernst Olivas [facility] CT LUMBAR SPINE WO CONTRAST 2022-04-26 00:00:00 Ernst Olivas [facility] CT THORACIC SPINE WO CONTRAST 2022-04-26 00:00:00 Ernst Olivas [facility] Encounters Start Date/Time End Date/Time Encounter Type Admission Type Attending Clinicians Care Facility Care Department Encounter ID Source 2021-07-14 07:52:30 Emergency [facility] [id number] [facility] 2024-07-20 00:00:00 2024-07-20 00:00:00 Outpatient Visit [facility] [id number] Vu Davis 2024-07-06 11:27:27 2024-07-06 11:27:27 Outpatient [facility] DAE [id number] Vu Davis 2024-07-06 00:00:00 2024-07-06 00:00:00 Outpatient Visit [facility] [id number] Vu Davis 2024-01-12 08:40:00 2024-01-12 09:13:45 Outpatient R JONATHAN-KU GERA ABBOTT [facility] [id number] [facility] 2024-01-12 08:40:00 2024-01-12 09:13:45 Office Visit Jonathan-Ku caseyskylarGera [facility] [id number] [facility] 2023-10-13 14:39:40 2023-10-13 14:39:40 Outpatient SFA [id number] [id number] Vu Davis 2023-08-21 18:03:38 2023-08-21 18:03:38 Outpatient SFA SFA [id number] Vu Davis 2023-08-17 16:23:37 2023-08-17 16:23:37 Outpatient SFA SFA [id number] Vu Davis 2023-08-04 11:40:00 2023-08-04 11:40:00 [facility] [id number] [facility] 2023-08-04 11:40:00 2023-08-04 11:27:14 Outpatient R GERA NOE [facility] [id number] [facility] 2023-07-28 11:40:00 2023-07-28 11:40:00 Outpatient R GERA NOE [facility] [id number] [facility] 2023-07-27 10:30:00 2023-07-27 23:59:00 Outpatient R GERA NOE [facility] [id number] [facility] 2023-07-27 08:49:58 2023-07-27 23:59:00 Hospital Encounter Norberto abbott [facility] ([facility]) [id number] [id number] [id number] [facility] 2023-07-08 16:40:00 2023-07-08 17:03:05 Outpatient R JONATHANMANISH ABBOTT [facility] [id number] [facility] 2023-07-08 16:40:00 2023-07-08 17:03:05 Office Visit Jonathan-Manish abbott [facility] [id number] [id number] [id number] [facility] 2023-07-08 00:00:00 2023-07-08 00:00:00 Orders Only Doctor Unassigned, [place] [facility] [id number] [facility] 2023-05-21 16:40:00 2023-05-21 16:40:00 [facility] [id number] [facility] 2022-05-21 00:00:00 2022-05-21 00:00:00 Orders Only Doctor Unassigned, [place] [facility] [id number] [id number] [id number] [facility] 2022-04-25 16:05:00 2022-04-25 20:41:00 Emergency X ERNST OLIVAS RUST ERT [id number] [facility] 2022-04-25 16:05:00 2022-04-25 20:41:00 Emergency Ernst Olivas [facility] 1.2840.114 350.1.13.10 4.2.7.2.686 [id number] [facility] 2021-10-15 04:26:00 2021-10-15 05:53:00 Emergency X MARY KAY HARRISON RUST ERT [id number] [facility] 2021-10-15 04:26:00 2021-10-15 05:53:00 Emergency Mary Kay Harrison [facility] 1.2.840.114 350.1.13.10 4.2.7.2.686 [id number] [facility] 2021-08-19 00:00:00 2021-08-19 00:00:00 Telephone Norberto abbott [facility] 1.2.840.114 350.1.13.10 4.2.7.2.686 [id number] [facility] 2021-08-16 13:09:18 2021-08-16 23:59:00 Outpatient R NORBERTO ABBOTT [facility] [id number] [facility] 2021-08-16 13:09:18 2021-08-16 23:59:00 Hospital Encounter JonathanManish abbott [facility] 1.2.840.114 350.1.13.10 4.2.7.2.686 [id number] [facility] 2021-08-16 13:09:18 2021-08-16 23:59:00 [facility] [id number] [facility] 2021-08-01 10:40:00 2021-08-01 10:49:20 Outpatient R NORBERTO ABBOTT [facility] [id number] [facility] 2021-08-01 10:30:15 2021-08-01 10:49:20 Office Visit JonathanManish scar [facility] [place] [facility] 1.2.840.114 350.1.13.10 4.2.7.2.686 [id number] [facility] 2021-08-01 00:00:00 2021-08-01 00:00:00 Orders Only Doctor Unassigned, [place] [facility] 1.2.840.114 350.1.13.10 4.2.7.2.686 [id number] [facility] 2021-04-18 15:08:12 2021-04-18 23:59:00 [facility] [place] [facility] 1.2.840.114 350.1.13.10 4.2.7.2.686 [id number] [facility] 2021-04-18 14:38:07 2021-04-18 15:39:44 Office Visit Jonathan-Manish crystal [facility] [place] [facility] 1.2.840.114 350.1.13.10 4.2.7.2.686 [id number] [facility] 2021-04-18 15:06:23 2021-04-18 15:07:00 Hospital Encounter [facility] [place] [facility] 1.2.840.114 350.1.13.10 4.2.7.2.686 [id number] [facility] 2021-04-18 14:15:00 2021-04-18 14:15:00 Outpatient R JONATHAN-KU NJSKYLAR [facility] [id number] [facility] 2021-04-09 16:03:59 2021-04-09 23:59:00 Hospital Encounter Critical access hospital [facility] 1.2.840.114 350.1.13.10 4.2.7.2.686 [id number] [facility] 2021-04-09 00:00:00 2021-04-09 00:00:00 Outpatient R RADIOLOGY [facility] [id number] [facility] 2021-03-18 09:00:00 2021-03-18 09:00:00 Outpatient R GERA NOE [facility] [id number] [facility] 2021-03-05 10:40:00 2021-03-05 10:40:00 [facility] [id number] [facility] 2020-12-11 13:19:06 2020-12-11 23:59:00 Hospital Encounter JonathanManish peñaoscar [facility] [place] [facility] ..840.114 350.1.13.10 4.2.7.2.686 [id number] [facility] 2020-12-11 00:00:00 2020-12-11 00:00:00 Outpatient [facility] [id number] [facility] 2020-12-04 11:41:00 2020-12-04 12:46:00 Emergency Babita Marrufo [facility] ..840.114 350.1.13.10 4.2.7.2.686 [id number] [facility] 2020-11-22 00:00:00 2020-11-22 00:00:00 Telephone Norberto abbott [facility] [place] [facility] ..840.114 350.1.13.10 4.2.7.2.686 [id number] [facility] 2020-07-26 10:45:33 2020-07-26 16:27:04 Office Visit RickyManish Gera abbott [facility] 1.2.840.114 350.1.13.10 4.2.7.2.686 [id number] [facility] 2020-07-26 10:45:00 2020-07-26 10:45:00 Outpatient R JONATHAN-KU CRYSTALOSCARGERA [facility] [id number] [facility] 2020-07-26 00:00:00 2020-07-26 00:00:00 Orders Only Doctor Unassigned, [place] [facility] 1.2.840.114 350.1.13.10 4.2.7.2.686 [id number] [facility] 2020-03-28 19:24:00 2020-03-28 23:59:00 Hospital Encounter Radiology [facility] 1.2.840.114 350.1.13.10 4.2.7.2.686 [id number] [facility] 2020-03-28 19:24:00 2020-03-28 23:59:00 Hospital Encounter Radiology [facility] 1.2.840.114 350.1.13.10 4.2.7.2.686 [id number] 2020-03-28 19:24:09 2020-03-28 19:24:09 Outpatient R RADIOLOGY [facility] [id number] [facility] 2019-12-20 08:48:31 2020-01-23 15:03:17 Telemedici ne Visit Shila Hale [facility] [place] [facility] 1.2.840.114 350.1.13.10 4.2.7.2.686 [id number] [facility] 2019-12-20 08:48:31 2020-01-23 15:03:17 Telemedici ne Visit Shila Hale [facility] 1.2840.114 350.1.13.10 4.2.7.2.686 [id number] 2020-01-23 14:45:00 2020-01-23 14:45:00 Outpatient R NORBERTO ABBOTT [facility] [id number] [facility] 2020-01-23 07:56:45 2020-01-23 08:11:45 Telemedici ne Visit [facility]Manish [facility] 1.2840.114 350.1.13.10 4.2.7.2.686 [id number] [facility] 2020-01-23 07:56:45 2020-01-23 08:11:45 Telemedici ne Visit [facility]Manish [facility] 1.2840.114 350.1.13.10 4.2.7.2.686 [id number] 2019-12-20 15:30:00 2019-12-20 15:30:00 Outpatient R SHILA HALE [facility] [id number] [facility] 2019-12-07 14:00:00 2019-12-07 14:00:00 Outpatient R YLNN DE PAZ [facility] [id number] [facility] 2019-12-01 00:00:00 2019-12-01 00:00:00 Case Management Lynn De Paz [facility] 1.2.840.114 350.1.13.10 4.2.7.2.686 [id number] [facility] 2019-11-24 14:00:00 2019-11-24 14:00:00 Outpatient LYNN MARIEE [facility] [id number] [facility] 2019-11-07 14:57:00 2019-11-07 23:59:00 Hospital Encounter Shila Hale [facility] 1.2840.114 350.1.13.10 4.2.7.2.686 [id number] [facility] 2019-11-07 14:55:00 2019-11-07 14:56:00 Hospital Encounter Jonathan-Ku crystaloscar [facility] [place] [facility] 1.840.114 350.1.13.10 4.2.7.2.686 [id number] [facility] 2019-11-07 14:55:26 2019-11-07 14:55:26 Outpatient R [facility]ISH [facility] [id number] [facility] 2019-10-27 13:41:07 2019-10-27 23:59:00 Outpatient R JONATHAN-KU SCAR [facility] [id number] [facility] 2019-10-27 13:41:07 2019-10-27 23:59:00 Outpatient R JONATHAN-KU CRYSTALOSCAR [facility] [id number] [facility] 2019-10-27 13:41:00 2019-10-27 23:59:00 Hospital En[facility]Manish [facility] .840.114 350.1.13.10 4.2.7.2.686 [id number] [facility] 2019-10-27 12:21:17 2019-10-27 14:26:20 Office Visit Jonathan-Manish [facility]oscar [facility] [place] [facility] 1.840.114 350.1.13.10 4.2.7.2.686 [id number] [facility] 2019-10-20 00:00:00 2019-10-20 00:00:00 Telephone Mehnaz Stovall [facility] 1.2.840.114 350.1.13.10 4.2.7.2.686 [id number] [facility] 2019-10-19 00:00:00 2019-10-19 00:00:00 Orders Only Doctor Unassigned, [place] [facility] 1.2.840.114 350.1.13.10 4.2.7.2.686 [id number] [facility] 2019-08-24 09:56:49 2019-08-24 09:56:00 Outpatient R GERA NOE [facility] [id number] [facility] 2019-05-25 13:22:00 2019-05-25 15:48:00 Hospital Encounter AnalizuleykavaleShila [facility] 1.2.840.114 350.1.13.10 4.2.7.2.686 [id number] [facility] 2019-05-25 00:00:00 2019-05-25 00:00:00 Orders Only Doctor Unassigned, [place] [facility] 1.2.840.114 350.1.13.10 4.2.7.2.686 [id number] [facility] 2019-04-28 00:00:00 2019-04-28 00:00:00 Telephone Mehnaz Stovall [facility] 1.2.840.114 350.1.13.10 4.2.7.2.686 [id number] [facility] 2019-04-27 13:46:00 2019-04-27 16:51:00 Hospital Encounter AnalizuleykavaleShila [facility] 1.2.840.114 350.1.13.10 4.2.7.2.686 [id number] [facility] 2019-04-27 00:00:00 2019-04-27 00:00:00 Orders Only Doctor Unassigned, [place] [facility] 1.2.840.114 350.1.13.10 4.2.7.2.686 [id number] [facility] 2019-04-21 00:00:00 2019-04-21 00:00:00 Telephone Bentley Rebollar Fabrice Astorg[facility] 1.2.840.114 350.1.13.10 4.2.7.2.686 [id number] [facility] 2019-04-15 12:46:10 2019-04-15 13:16:10 Office Visit Shila Hale [facility] 1..840.114 350.1.13.10 4.2.7.2.686 [id number] [facility] 2019-01-13 12:14:13 2019-01-13 23:59:00 Outpatient LYNN MARIEE [facility] [id number] [facility]
[2024-08-29] MEDS ORDERED: IPRATROPIUM BROM 0.5MG/2.5ML ONE (17:17)
[2024-08-29] MEDS ORDERED: METHYLPREDNISOLONE 125 MG INJ ONE (17:17)
[2024-08-29] MEDS ORDERED: FENTANYL CITR 100 MCG/2 ML ONE (17:17)
[2024-08-29] MEDS ORDERED: ALBUTEROL 2.5 MG/3 ML NEB SOL ONE (17:17)
[2024-08-29 17:38] LABS: RBC Red Blood Cell Count 4.64 M/uL (3.86-4.86)
[2024-08-29 17:39] LABS: Absolute Basophils 0.1 K/uL (0-0.5); Absolute Eosinophils 0.3 K/uL (0-0.5); Absolute Lymphocytes (CBC) 1.7 K/uL (0.7-4.9); Absolute Monocytes 0.8 K/uL (0.1-1.3); Absolute Neutrophil 4.7 K/uL (1.8-8.0); Basophils % 1.5 % (0-1.3); Eosinophils % 3.3 % (0-4.4); Hematocrit 40.7 % (36.0-45.0); Hemoglobin 13.4 g/dL (12.0-15.0); Lymphocytes % 22.4 % (15.3-44.8); MCH 28.8 pg (27.0-35.0); MCHC 32.9 g/dL (32.0-36.0); MCV 87.7 fL (80-100); MPV 8.8 fL (7.6-11.3); Neutrophils % 61.8 % (41.7-73.7); Platelets 293 thou/uL (152-406); Red Cell Distribution Width 20.3 % (12.1-15.2)
[2024-08-29] MEDS ORDERED: KETOROLAC 30 MG/ML INJ ONE (17:39)
[2024-08-29 17:43] LABS: PT Prothrombin Time 11.1 SECONDS (9.4-12.5); Protime INR 0.99
[2024-08-29 17:58] LABS: SARS-CoV-2 Antigen CONTROL BLUE LINE VIS/BG OK; SARS-CoV-2 Antigen Rapid Res Negative (Negative)
[2024-08-29 17:59] LABS: ALT/SGPT 37 U/L (13-56); AST/SGOT 18 U/L (15-37); Albumin 3.5 g/dL (3.4-5.0); Alkaline Phosphatase 105 U/L (45-117); Anion Gap 11.7 mEq/L (5.0-15.0); BUN Blood Urea Nitrogen 9 mg/dL (7-18); Bicarbonate 25 mEq/L (21-32); Bilirubin Total 0.2 mg/dL (0.2-1.0); Globulin 3.5 g/dL (2.3-3.5); Glomerular Filtration Rate 98 ml/min (=/>90); Glucose Level 137 mg/dL (74-106); Magnesium 1.9 mg/dL (1.6-2.4); NT PRO-BNP 20 pg/mL (<125); Potassium 3.7 mEq/L (3.5-5.1); Sodium Level 142 mEq/L (136-145); Troponin High Sensitivity 3.8 pg/mL (<58.9)
[2024-08-29 18:01] LABS: Bilirubin Direct < 0.2 mg/dL (0-0.2)
[2024-08-29 18:20] LABS: Anisocytosis SLIGHT; Blood Morphology Comment NOTED (NOT SEEN); Platelet Estimate ADEQ; White Blood Cell Scan OK (OK)
--- NOTE | 2024-08-29 18:47 | RAD REPORT ---
EXAMINATION: ONE VIEW CHEST XR CLINICAL INDICATION: Female, 68 years old.,Chest pain;SOB TECHNIQUE: Frontal chest projection is submitted. Examination is limited by patient positioning and t echnique. COMPARISON: 11/15/2020 FINDINGS: The lungs are well inflated and clear, although superimposition of soft tissues along the peripheral hemithorax on both sides somewhat limits evaluation. No pneumothorax or sizable effusion. The heart is normal in size. Mediastinal contours are unremarkable. Surgical clips along the left chest w all/axilla again seen. Sclerotic lesion within the left proximal humerus is stable, likely benign IMPRESSION: No acute intrathoracic abnormalities. Stable findings as above.
--- NOTE | 2024-08-29 19:48 | RAD REPORT ---
EXAM: CT Chest For Pe Angio TECHNIQUE: CT angiogram of the chest was performed following intravenous contrast administration, inc luding sagittal and coronal as well as maximum intensity projection reformats. One or more of the following dose reduction techniques were used: Automated exposure control, adjustment of the mA and k V according to patient size, and iterative reconstruction. Unless otherwise specified, incidental findings do not require dedicated imaging follow-up. INDICATION: [facility] MAIN Chest pain;SOB Bed Name: 3 Y COMPARISON: Chest x-ray of the same day. FINDINGS: LINES/TUBES: None. PULMONARY ARTERIES: Main pulmonary arteries are normal in caliber. No filling defects within the pul monary arteries to suggest pulmonary embolus mildly suboptimal contrast limiting evaluation. LUNGS AND AIRWAYS: The lungs and central airways are normal without focal abnormality. Mild platelike atelectatic changes. PLEURA: No effusion or pneumothorax. HEART AND MEDIASTINUM: The visualized thyroid gland is normal. No mediastinal, hilar, or axillary lym phadenopathy. Heart is unremarkable. No pericardial effusion. Small sliding hiatal hernia. SOFT TISSUES AND BONES: No acute osseous abnormality. No significant soft tissue finding. UPPER ABDOMEN: Unremarkable. Left breast implant place. IMPRESSION: No evidence of acute central pulmonary emboli. No suspicious intrathoracic findings..
--- NOTE | 2024-08-29 20:00 | ER ---
Nurse's Notes [facility] Name: Cindy Malin Age: 68 yrs Sex: Female : 1955 Arrival Date: 08/29/2024 Time: 16:44 Bed 3 Private MD: Diagnosis: Chest pain, unspecified Presentation: 08/29 16:57 Chief complaint: EMS states: From [facility], c/o chest pain x 3 days, uses home ph oxygen at 4L NC, no hx of HTN but BP high for EMS. Coronavirus screen: Vaccine status: Patient reports receiving the 2nd dose of the covid vaccine. Ebola Screen: No symptoms or risks identified at this time. Initial Sepsis Screen: Does the patient meet any 2 criteria? No. Patient's initial sepsis screen is negative. Does the patient have a suspected source of infection? No. Patient's initial sepsis screen is negative. Risk Assessment: Do you want to hurt yourself or someone else? Patient reports no desire to harm self or others. Onset of symptoms was August 29, 2024. 16:57 Method Of Arrival: EMS: [facility] 16:57 Acuity: SHAMA 2 ph Triage Assessment: 17:00 General: Appears in no apparent distress. uncomfortable, Behavior is calm, cooperative. ph Pain: Complains of pain in chest Pain does not radiate. Neuro: Level of Consciousness is awake, alert, obeys commands, Oriented to person, place, time, situation. Cardiovascular: Reports chest pain. Respiratory: Airway is patent Respiratory effort is even, labored, Respiratory pattern is tachypnea. GI: No signs and/or symptoms were reported involving the gastrointestinal system. Derm: Skin is pink, warm \T\ dry. Historical: - Allergies: 16:59 Benadryl; ph 16:59 Codeine; ph 16:59 Allergy Medicine; ph - PMHx: 16:59 Back pain; breast cancer; ph - PSHx: 16:59 hip replacement- Left; ph - Immunization history:: Adult Immunizations unknown. - Infectious Disease History:: Denies. - Social history:: Smoking status: Patient denies any tobacco usage or history of. Screenin:01 [facility] ED Fall Risk Assessment (Adult) History of falling in the last 3 months, ph including since admission No falls in past 3 months (0 pts) Confusion or Disorientation No (0 pts) Intoxicated or Sedated No (0 pts) Impaired Gait No (0 pts) Mobility Assist Device Used No (0 pt) Altered Elimination No (0 pt) Score/Fall Risk Level 0 - 2 = Low Risk Oriented to surroundings, Maintained a safe environment, Hourly rounding (assess needs \T\ fall precautionary measures) done. Abuse screen: Denies threats or abuse. Denies injuries from another. Nutritional screening: No deficits noted. Tuberculosis screening: No symptoms or risk factors identified. Assessment: 17:42 General: SEE TRIAGE ASSESSMENT. ph 20:41 Reassessment: Patient and/or family updated on plan of care and expected duration. Pain br2 level reassessed. Patient is alert, oriented x 3, equal unlabored respirations, skin warm/dry/pink. Patient states feeling better. Patient states symptoms have improved. 22:42 Reassessment: Patient appears in no apparent distress at this time. Patient and/or bm8 family updated on plan of care and expected duration. Pain level reassessed. Patient is alert, oriented x 3, equal unlabored respirations, skin warm/dry/pink. Patient denies pain at this time. Patient states feeling better. Patient states symptoms have improved. General: Appears in no apparent distress. comfortable, Behavior is calm, cooperative, appropriate for age. Pain: Denies pain. Neuro: No deficits noted. Level of Consciousness is awake, alert, obeys commands, Oriented to person, place, time, situation, Appropriate for age. Cardiovascular: Denies chest pain, Heart tones S1 S2 present Capillary refill < 3 seconds in bilateral toes. Respiratory: Airway is patent Trachea midline Respiratory effort is even, unlabored, Respiratory pattern is regular, symmetrical, pt on 4L NC. GI: No signs and/or symptoms were reported involving the gastrointestinal system. : No signs and/or symptoms were reported regarding the genitourinary system. EENT: No signs and/or symptoms were reported regarding the EENT system. Derm: No signs and/or symptoms reported regarding the dermatologic system. Musculoskeletal: No signs and/or symptoms reported regarding the musculoskeletal system. Vital Signs: 16:57 BP 180 / 99; Pulse 96; Resp 23; Temp 98.1; Pulse Ox 98% on 4 lpm NC; Weight 61.23 kg; ph Height 4 ft. 11 in. ; 17:41 BP 155 / 104; Pulse 75; Resp 20; Pulse Ox 99% on Nebulizer Mask; ph 18:54 BP 174 / 89; Pulse 90; Resp 18; Pulse Ox 94% on 4 lpm NC; ph 20:41 BP 163 / 93; Pulse 101; Resp 16; Pulse Ox 95% on R/A; br2 21:11 BP 133 / 90; Pulse 98; Resp 20; Pulse Ox 96% on NC; ay 22:01 BP 136 / 90; Pulse 96; Resp 19; Temp 98.1; Pulse Ox 96% ; Pain 2/10; bm8 16:57 Body Mass Index 27.26 (61.23 kg, 149.86 cm) ph 22:01 Pain Scale: Adult bm8 Vitals: 17:41 Cardiac Rhythm Assessment Sinus rhythm. ph Ambar Coma Score: 22:01 Eye Response: spontaneous(4). Motor Response: obeys commands(6). Verbal Response: bm8 oriented(5). Total: 15. ED Course: 16:57 Patient arrived in ED. ph 16:59 Triage completed. ph 16:59 Checo Guerrero PA is PHCP. cp 16:59 Pancho Saldaña MD is Attending Physician. cp 17:00 Arm band placed on Patient placed in an exam room. ph 17:01 Patient has correct armband on for positive identification. Bed in low position. Call ph light in reach. Side rails up X 1. Client placed on continuous cardiac and pulse oximetry monitoring. NIBP monitoring applied. ekg monitor tech on. Door closed. Noise minimized. Warm blanket given. 17:02 Oxygen administration via nasal cannula \T\ 4L/min. ph 17:05 Karo Gloria, RN is Primary Nurse. ph 17:13 EKG done, by ED staff, reviewed by Checo MARTIN. ph 17:31 SARS RAPID Sent. cc6 17:31 Influenza Screen (a \T\ B) Sent. cc6 17:31 Basic Metabolic Panel Sent. cc6 17:31 CBC with Diff Sent. cc6 17:31 LFT's Sent. cc6 17:31 Magnesium Sent. cc6 17:32 NT PRO-BNP Sent. cc6 17:32 PT-INR Sent. cc6 17:32 Troponin HS Sent. cc6 17:32 Initial lab(s) drawn, by ma, sent to lab. COVID swab sent to lab. Flu and/or RSV swab cc6 sent to lab. Inserted saline lock: 20 gauge in right forearm, using aseptic technique. Blood collected. Flushed with 10 mL NS. 18:20 XRAY Chest (1 view) In Process Unspecified. EDMS 19:20 CT Chest For PE Angio In Process Unspecified. EDMS 19:59 Mu Eaton MD is Hospitalizing Provider. cp 22:42 Provided Education on: need for admission. bm8 22:42 No provider procedures requiring assistance completed. Patient admitted, IV remains in bm8 place. Administered Medications: 17:37 Not Given (Physician Discretion): fentanyl (pf)25 mcg IVP once cp 17:41 Drug: DuoNeb Nebulize (2.5 mg - 0.5 mg) 3 ml Nebulizer once Route: Nebulizer; ph 21:21 Follow up: Response: No adverse reaction ay 17:41 Drug: MethylPrednisoLONE IVP 125 mg IVP once Route: IVP; Site: right forearm; ph 21:20 Follow up: Response: No adverse reaction ay 17:41 Drug: Ketorolac IVP 15 mg IVP once Route: IVP; Site: right forearm; ph 22:42 Follow up: Response: No adverse reaction bm8 21:48 Drug: Aspirin PO Chewable Tablet 324 mg PO once; 81 mg tablets x 4 Route: PO; bm8 22:42 Follow up: Response: No adverse reaction bm8 Medication: 17:01 VIS not applicable for this client. ph Outcome: 19:59 Decision to Hospitalize by Provider. cp 22:41 Admitted to Tele accompanied by tech, via wheelchair, room 404, with oxygen, with 8 chart, 22:41 Condition: stable 22:41 Instructed on follow up and referral plans. the need for admit, Demonstrated understanding of instructions, follow-up care, 22:44 Patient left the ED. 8 Signatures: Dispatcher [employer] EDMS Karo Gloria RN RN ph Checo Guerrero PA PA cp Ben Cohn RN RN 8 Nury Bertrand RN RN br2 Aylin Canseco cc6 Giselle Linares RN RN ay Corrections: (The following items were deleted from the chart) 17:00 16:57 BP 180 / 99; Pulse 96bpm; Resp 20bpm; Pulse Ox 98% 4 lpm Nasal Cannula; Temp ph 98.1F; 61.23 kg; Height 4 ft. 11 in.; BMI: 27.2; ph
--- NOTE | 2024-08-29 20:00 | EDPHYS ---
Physician Documentation [facility] Name: Cindy Malin Age: 68 yrs Sex: Female : 1955 Arrival Date: 08/29/2024 Time: 16:44 Bed 3 Private MD: ED Physician Pancho Saldaña HPI: 08/29 17:10 This 68 yrs old Female presents to ER via EMS with complaints of Chest Pain. cp 17:10 The patient or guardian reports chest pain that is located primarily in the anterior cp chest wall, right. Onset: 3 day(s) ago. Associated signs and symptoms: Pertinent positives: cough, shortness of breath, Pertinent negatives: abdominal pain, lower extremity pain, lower extremity swelling, vomiting, fever. 17:10 The chest pain is described as a heaviness. Duration: The patient or guardian reports a cp single episode, that is still ongoing. 17:10 Severity of pain: in the emergency department the pain is unchanged despite home cp interventions. Historical: - Allergies: 16:59 Benadryl; ph 16:59 Codeine; ph 16:59 Allergy Medicine; ph - PMHx: 16:59 Back pain; breast cancer; ph - PSHx: 16:59 hip replacement- Left; ph - Immunization history:: Adult Immunizations unknown. - Infectious Disease History:: Denies. - Social history:: Smoking status: Patient denies any tobacco usage or history of. ROS: 17:15 Cardiovascular: Positive for chest pain, Negative for edema, palpitations, cp 17:15 Constitutional: Negative for fever, poor PO intake, cp 17:15 Respiratory: Positive for cough, "sounds productive", shortness of breath, 17:15 Eyes: Negative for injury, pain, redness, and discharge, cp 17:15 ENT: Negative for drainage from ear(s), ear pain, sore throat, difficulty swallowing, difficulty handling secretions, 17:15 Abdomen/GI: Negative for abdominal pain, vomiting, diarrhea, constipation, 17:15 Back: Negative for radiated pain, 17:15 Neuro: Negative for altered mental status, dizziness, headache, weakness, 17:15 All other systems are negative, Exam: 17:18 ECG was reviewed by the Attending Physician. cp 17:20 Constitutional: The patient appears in no acute distress, alert, awake, non-toxic, well cp developed, well nourished, uncomfortable, 17:20 Head/Face: Normocephalic, atraumatic. cp 17:20 Eyes: Periorbital structures: appear normal, Conjunctiva: normal, no exudate, no injection, Sclera: no appreciated abnormality, Lids and lashes: appear normal, bilaterally, 17:20 ENT: External ear(s): are unremarkable, Nose: is normal, Mouth: Lips: moist, Oral mucosa: moist, Posterior pharynx: Airway: no evidence of obstruction, patent, 17:20 Chest/axilla: Inspection: normal, Palpation: crepitus, is not appreciated, tenderness, that is moderate, of the anterior aspect of right upper chest and mid-sternal area, 17:20 Cardiovascular: Rate: normal, Rhythm: regular, Edema: is not appreciated, JVD: is not appreciated, 17:20 Respiratory: mild respiratory distress is noted, Respirations: labored breathing, that is moderate, Breath sounds: decreased breath sounds, that are moderate, throughout, stridor, is not appreciated, 17:20 Abdomen/GI: Inspection: abdomen appears normal, Palpation: abdomen is soft and non-tender, in all quadrants, 17:20 Back: CVA tenderness, is absent, 17:20 Skin: cellulitis, is not appreciated, no rash present. 17:20 Neuro: Orientation: to person, place \\T\\ time. Mentation: is normal, Motor: moves all fours, strength is normal, Sensation: is normal, Vital Signs: 16:57 BP 180 / 99; Pulse 96; Resp 23; Temp 98.1; Pulse Ox 98% on 4 lpm NC; Weight 61.23 kg; ph Height 4 ft. 11 in. ; 17:41 BP 155 / 104; Pulse 75; Resp 20; Pulse Ox 99% on Nebulizer Mask; ph 18:54 BP 174 / 89; Pulse 90; Resp 18; Pulse Ox 94% on 4 lpm NC; ph 20:41 BP 163 / 93; Pulse 101; Resp 16; Pulse Ox 95% on R/A; br2 21:11 BP 133 / 90; Pulse 98; Resp 20; Pulse Ox 96% on NC; ay 22:01 BP 136 / 90; Pulse 96; Resp 19; Temp 98.1; Pulse Ox 96% ; Pain 210; bm8 16:57 Body Mass Index 27.26 (61.23 kg, 149.86 cm) ph 22:01 Pain Scale: Adult bm8 [place] Coma Score: 22:01 Eye Response: spontaneous(4). Motor Response: obeys commands(6). Verbal Response: bm8 oriented(5). Total: 15. MDM: 16:59 Medical Screening Exam initiated cp 20:05 Data reviewed: vital signs, nurses notes, lab test result(s), EKG, radiologic studies, cp CT scan, plain films, and as a result, I will admit patient. 20:05 Differential diagnosis: abnormal EKG, acute myocardial infarction, pericarditis, cp pleurisy, pneumonia, pneumothorax, pulmonary embolus, stable angina, unstable angina. The patient was given aspirin in the Emergency Department. Management of patient was discussed with the following: Hospitalist: DR Eaton who will admit after discussion. I considered the following discharge prescriptions or medication management in the emergency department Medications were administered in the Emergency Department. See MAR. Independent interpretation of the following test(s) in the Emergency Department EKG: See my EKG interpretation above. Care significantly affected by the following chronic conditions: Cancer. Counseling: I had a detailed discussion with the patient and/or guardian regarding the historical points, exam findings, and any diagnostic results supporting the discharge/admit diagnosis, lab results, radiology results. Response to treatment: the patient's symptoms have markedly improved after treatment. 08/29 17:06 Order name: Basic Metabolic Panel; Complete Time: 18:30 cp 1216 18:30 Interpretation: Normal except: CL 109; GLUC 137. cp 08/29 17:06 Order name: CBC with Diff; Complete Time: 18:30 cp 08/29 17:06 Order name: LFT's; Complete Time: 18:30 cp 16 17:06 Order name: Magnesium; Complete Time: 18:30 cp 16 17:06 Order name: NT PRO-BNP; Complete Time: 18:30 cp 12/16 17:06 Order name: PT-INR; Complete Time: 18:30 cp 16 17:06 Order name: Troponin HS; Complete Time: 18:30 cp 16 17:07 Order name: Influenza Screen (a \\T\\ B); Complete Time: 18:30 cp 16 17:07 Order name: SARS RAPID; Complete Time: 18:30 cp 16 17:44 Order name: CBC Smear Scan; Complete Time: 18:30 EDMS 08/29 20:31 Order name: Urinalysis w/ reflexes EDMS 08/29 20:31 Order name: CBC with Automated Diff EDMS 08/29 20:31 Order name: CBC with Automated Diff EDMS 08/29 20:31 Order name: Comprehensive Metabolic Panel EDMS 08/29 20:31 Order name: Comprehensive Metabolic Panel EDMS 08/29 20:31 Order name: Magnesium EDMS 08/29 20:31 Order name: Magnesium EDMS 08/29 20:31 Order name: Phosphorus EDMS 08/29 20:31 Order name: Phosphorus EDMS 08/29 20:31 Order name: Troponin High Sensitivity EDMS 08/29 20:31 Order name: Troponin High Sensitivity EDMS 08/29 17:06 Order name: XRAY Chest (1 view); Complete Time: 19:51 cp 16 19:52 Interpretation: Report review. cp 08/29 18:31 Order name: CT Chest For PE Angio; Complete Time: 19:51 cp 16 17:06 Order name: EKG; Complete Time: 17:07 cp 16 17:06 Order name: Cardiac monitoring; Complete Time: 17:14 cp 16 17:06 Order name: EKG - Nurse/Tech; Complete Time: 17:14 cp 16 17:06 Order name: IV Saline Lock; Complete Time: 17:31 cp 16 17:06 Order name: Labs collected and sent; Complete Time: 17:31 cp 16 17:06 Order name: O2 Per Protocol; Complete Time: 17:14 cp 16 17:06 Order name: O2 Sat Monitoring; Complete Time: 17:14 cp EC:18 Rate is 77 beats/min. Rhythm is regular. MO interval is normal. QRS interval is normal. cp QT interval is normal. T waves are Inverted in lead aVR. Interpreted by me. Reviewed by me. Administered Medications: 17:37 Not Given (Physician Discretion): fentanyl (pf)25 mcg IVP once cp 17:41 Drug: DuoNeb Nebulize (2.5 mg - 0.5 mg) 3 ml Nebulizer once Route: Nebulizer; ph 21:21 Follow up: Response: No adverse reaction ay 17:41 Drug: MethylPrednisoLONE IVP 125 mg IVP once Route: IVP; Site: right forearm; ph 21:20 Follow up: Response: No adverse reaction ay 17:41 Drug: Ketorolac IVP 15 mg IVP once Route: IVP; Site: right forearm; ph 22:42 Follow up: Response: No adverse reaction bm8 21:48 Drug: Aspirin PO Chewable Tablet 324 mg PO once; 81 mg tablets x 4 Route: PO; bm8 22:42 Follow up: Response: No adverse reaction bm8 Disposition: 08/30 14:37 Co-signature as Attending Physician, Pancho Saldaña MD I reviewed the patient's care rn provided by the Advanced Practice Provider and agree with the diagnosis and treatment plan. Disposition Summary: 08/29/24 19:59 Hospitalization Ordered Notes: Hospitalization Status: Observation cp Provider: Mu Eaton cp Location: Telemetry/MedSurg (observation) cp Condition: Stable cp Problem: new cp Symptoms: have improved cp Bed/Room Type: Standard cp Room Assignment: 404(08/29/24 20:36) rv1 Diagnosis - Chest pain, unspecified cp Forms: - Medication Reconciliation Form cp - SBAR form cp - Leadership Thank You Letter cp Signatures: Dispatcher [employer] Pancho Ravi MD MD rn Hall, Patricia, RN RN ph Checo Guerrero PA PA cp Aminta David rv1 Ben Cohn RN RN bm8 Giselle Linares RN Corrections: (The following items were deleted from the chart) 08/29 20:36 19:59 cp rv1
--- NOTE | 2024-08-29 20:26 | P.HP ---
Certification for Inpatient Patient admitted to: Observation With expected LOS: <2 Midnights Practitioner: I am a practitioner with admitting privileges, knowledge of patient current condition, hospital course, and medical plan of care. Services: Services provided to patient in accordance with Admission requirements found in Title 42 Section 412.3 of the Code of Federal Regulations Patient History Date of Service: 08/30/24 Reason for admission: Chest Pain History of Present Illness: 68-year-old female with past medical history of breast cancer, chronic back pain who was brought to ER with chest pain. Chest pain started 2 days ago and has been located retrosternally with pressure-like feeling 6 out of 10 in severity denies any diaphoresis. No nausea vomiting or diarrhea. Has mild shortness of breath, associated with cough with no expectoration. Patient was assessed in the ER and was admitted for further management of chest pain to rule out ACS Allergies codeine Allergy (Verified 08/29/24 23:13) Itching/Hives/Rash morphine Adverse Reaction (Verified 08/29/24 23:15) Itching/Hives/Rash Home medications list reviewed: Yes - Past Medical/Surgical History Past Medical History: Reviewed- Non-Contributory -: Breast Cancer, Back Pain Past Surgical History: Reviewed- Non-Contributory -: Left hip - Family History Family History: Reviewed- Non-Contributory - Family History Mother -: Liver disease Father -: Hypertension, Stroke - Social History Smoking Status: Never smoker Review of Systems 10-point ROS is otherwise unremarkable Physical Examination - Vital Signs Temperature: 97.8 F Blood Pressure: 180/98 Pulse: 68 Respirations: 18 Pulse Ox (%): 94 - Physical Exam General: Alert, In no apparent distress, Oriented x3 HEENT: Atraumatic, Normocephalic Neck: Supple Respiratory: Clear to auscultation bilaterally, Normal air movement Cardiovascular: Regular rate/rhythm, Normal S1 S2 Capillary refill: <2 Seconds Gastrointestinal: Soft and benign, W/out hepatosplenomegaly Musculoskeletal: No clubbing Integumentary: No rashes, No breakdown Neurological: Normal gait, Normal speech Lymphatics: No axilla or inguinal lymphadenopathy - Studies Laboratory Data (last 24 hrs) 08/29/24 08/29/24 08/29/24 17:24 17:24 17:24 WBC 7.60 Hgb 13.4 Hct 40.7 Plt Count 293 PT 11.1 INR 0.99 Sodium 142 Potassium 3.7 BUN 9 Creatinine 0.62 Glucose 137 H Magnesium 1.9 Total Bilirubin 0.2 AST 18 ALT 37 Alkaline Phosphatase 105 Microbiology Data (last 24 hrs): 08/29/24 17:24 Nasopharnyx Influenza Type A Antigen Screen - Final 08/29/24 17:24 Nasopharnyx Influenza Type B Antigen Screen - Final Assessment and Plan - Plan Chest pain to rule out ACS Will monitor telemetry Started on aspirin and statin EKG did not show any acute changes suggestive of ischemia Will get an echocardiogram Cardiology consult CT chest negative for any PE Elevated blood pressure Antihypertensives titrated Hydralazine as needed GI/DVT prophylaxis Advanced directive full code Discharge Plan: Home Plan to discharge in: 48 Hours - Advance Directives Does patient have a Living Will: No Does patient have a Durable POA for Healthcare: No - Code Status/Comfort Care Code Status: Full Code Time Spent Managing Pts Care (In Minutes): 48
[2024-08-29] MEDS ORDERED: ONDANSETRON 4 MG/2 ML VIAL IV PRN (20:27)
[2024-08-29] MEDS ORDERED: ASPIRIN 81 MG CHEWABLE TABLET ONE (21:45)
[2024-08-30 03:05] VITALS: O2SAT 94; BMI 27.2
[2024-08-30] MEDS: ACETAMINOPHEN 325 MG TABLET PO PRN (04:37)
[2024-08-30 06:05] LABS: Absolute Lymphocytes (CBC) 0.9 K/uL (0.7-4.9); Absolute Monocytes 0.3 K/uL (0.1-1.3); Absolute Neutrophil 11.1 K/uL (1.8-8.0); Basophils % 0.3 % (0-1.3); Hematocrit 39.8 % (36.0-45.0); Lymphocytes % 7.3 % (15.3-44.8); MCH 28.8 pg (27.0-35.0); MCHC 32.8 g/dL (32.0-36.0); MCV 87.9 fL (80-100); MPV 9.2 fL (7.6-11.3); Monocytes % 2.5 % (3.3-12.3); Neutrophils % 89.9 % (41.7-73.7); Platelets 288 thou/uL (152-406); RBC Red Blood Cell Count 4.53 M/uL (3.86-4.86); Red Cell Distribution Width 20.9 % (12.1-15.2)
[2024-08-30] MEDS: carvediloL 3.125 MG TAB PO SCH (06:10)
[2024-08-30 06:23] LABS: Albumin 3.3 g/dL (3.4-5.0); Albumin/Globulin Ratio 0.9 (1.1-1.8); Anion Gap 9.1 mEq/L (5.0-15.0); Bilirubin Total 0.2 mg/dL (0.2-1.0); Globulin 3.5 g/dL (2.3-3.5); Magnesium 1.9 mg/dL (1.6-2.4); Phosphorus 2.8 mg/dL (2.5-4.9); Potassium 4.1 mEq/L (3.5-5.1); Protein, Total 6.8 g/dL (6.4-8.2)
[2024-08-30] MEDS ORDERED: FLU (Fluarix Triv) TS24-25(6MOS UP)/PF 45 MCG/0.5 ML Syringe IM ONE (07:45)
[2024-08-30] MEDS ORDERED: PNEUMOCOCCAL VACCINE 0.5 ML IMVAC ONE (08:00)
[2024-08-30 09:05] LABS: Anisocytosis SLIGHT; Blood Morphology Comment NOTED (NOT SEEN); Macrocytosis SLIGHT; Platelet Estimate ADEQ; White Blood Cell Scan OK (OK)
--- NOTE | 2024-08-30 09:22 | P.PN ---
Date of Service: 08/30/24 Subjective: reports feeling significantly better this morning denies any new / worsening problems chest pain improved reports recent hospitalization in [facility] earlier this year requiring what sounds like intubation for 1 week per patient. felt better after breathing treatment in ED ROS: 10 point ROS as noted above, otherwise negative Physical Exam: GEN: Alert, oriented, NAD CV: Regular rate and rhythm, no edema Pulm: Nonlabored respirations on room air, clear bilaterally ABD: soft, nontender, nondistended Integumentary: No rashes Neuro: Normal speech, normal affect Problem List: Chest pain Hypertension reports some chest pressure associated with shortness of breath, cough for ~2 days denies any prior cardiac history reports recent hospitalization in [facility] earlier this year requiring what sounds like intubation for 1 week per patient. CXR, CTA negative for any acute findings Trend troponin's, monitor on telemtry Cardiology consulted Echo ordered to eval EF / stenosis continue coreg, statin, asa 81mg felt some improvement after breathing treatment in ED. VTE: Lovenox Code: Full Dispo: Home Time Spent Managing Pts Care (In Minutes): 55
[2024-08-30] MEDS: ASPIRIN EC 81 MG TAB PO SCH (09:49)
[2024-08-30] MEDS: ENOXAPARIN 40 MG/0.4 ML SQ SCH (09:50)
--- NOTE | 2024-08-30 11:23 | P.CNS ---
Date of Consult: 08/30/24 Chief Complaint: Chest Pain History of Present Illness: Patient with no significant PMH presented with chest pressure for the last two days, report that was admitted recently to another hospital and got treated for PNA, and that after she got breathing treatment this time, she was able to cough phlegm and felt better after, denies any other cardiac symptoms. Allergies codeine Allergy (Verified 08/29/24 23:13) Itching/Hives/Rash morphine Adverse Reaction (Verified 08/29/24 23:15) Itching/Hives/Rash Home medications list reviewed: Yes Home Medications: Albuterol Inhaler [Ventolin Inhaler*] 1 puff IH BID PRN 08/30/24 Albuterol Sulfate [Albuterol Sulfate Hfa] 1 puff IH BID PRN 08/30/24 Famotidine 1 mg PO DAILY 08/30/24 Gabapentin 300 mg PO BID 08/30/24 Ipratropium [Atrovent 0.03% (21MCG)/[place] Nasal*] 2 sprays DAILY 08/30/24 - Past Medical/Surgical History Diabetic: No -: Breast Cancer, Back Pain -: Back Pain -: mumps -: chicken pox -: shingles -: Left hip -: R knee replacement - Family History Mother Medical History: Liver disease Father Medical History: Hypertension, Stroke - Social History Smoking Status: Unknown if ever smoked Alcohol use: No CD- Drugs: No Caffeine use: Yes Place of Residence: Home Review of Systems 10-point ROS is otherwise unremarkable Physical Examination Temp Pulse Resp BP Pulse Ox 97.8 F 84 18 105/61 93 08/30/24 08:00 08/30/24 08:00 08/30/24 08:00 08/30/24 08:00 08/30/24 08:00 General: Alert, In no apparent distress HEENT: Atraumatic, PERRLA, Mucous membr. moist/pink, EOMI, Sclerae nonicteric Neck: Supple, 2+ carotid pulse no bruit, No LAD, Without JVD or thyroid abnormality Respiratory: Clear to auscultation bilaterally, Normal air movement Cardiovascular: Regular rate/rhythm, Normal S1 S2 Gastrointestinal: Normal bowel sounds, No tenderness Musculoskeletal: No tenderness Integumentary: No rashes Neurological: Normal gait, Normal speech, Normal tone, Normal affect Lymphatics: No axilla or inguinal lymphadenopathy Laboratory Data (last 24 hrs) 08/29/24 08/29/24 08/29/24 17:24 17:24 17:24 WBC 7.60 Hgb 13.4 Hct 40.7 Plt Count 293 PT 11.1 INR 0.99 Sodium 142 Potassium 3.7 BUN 9 Creatinine 0.62 Glucose 137 H Magnesium 1.9 Total Bilirubin 0.2 AST 18 ALT 37 Alkaline Phosphatase 105 - Problems (1) Chest pain Current Visit: Yes Status: Acute Plan: atypical, cardiac enzymes are negative, outpatient follow up for stress test. (2) HTN (hypertension) Current Visit: Yes Status: Acute Plan: continue coreg 3.125 mg po BID
--- NOTE | 2024-08-30 11:57 | EKG ---
Test Date: 2024-08-29 Test Time: 17:10:36 Supervisor [place]: PH MEASUREMENT RESULTS: Intervals: Rate: 77 ND: 144 QRSD: 76 QT: 372 QTc: 420 [place]: P: 53 ND: 144 QRS: 22 T: 45 INTERPRETIVE STATEMENTS: Normal sinus rhythm Normal ECG Compared to ECG 02/14/2010 15:07:16 Prolonged QT interval no longer present Electronically Signed On 08-30-24 11:55:49 TRANSPORTATION DEPARTMENT SUPERVISOR by Alex Mauro
[2024-08-30 14:21] VITALS: BP 106/62; TEMP 98.1
[2024-08-30] MEDS ORDERED: ATORVASTATIN 40 MG TAB PO SCH (21:00)
--- NOTE | 2024-08-31 06:42 | P.DS ---
Admission Date: 08/29/24 Discharge Date: 08/30/24 Disposition: ROUTINE DISCHARGE Discharge Condition: GOOD Reason for Admission: Chest Pain Consultations: Cardiology - Dr. Mauro Brief History of Present Illness: 68yo F, PMH: breast cancer, chronic back pain Patient was brought to ER with chest pain. Chest pain started 2 days ago and has been located retrosternally with pressure-like feeling 6 out of 10 in severity denies any diaphoresis. No nausea vomiting or diarrhea. Has mild shortness of breath, associated with cough with no expectoration. Patient was assessed in the ER and was admitted for further management of chest pain to rule out ACS Hospital Course: Problem List: Suspected acute COPD exacerbation Chest discomfort; resolved Hypertension Tobacco use Physician discharge instructions: Patient presents with intermittent chest pressure, shortness of breath, cough for ~2 days. Cardiac workup this hospitalization including EKG, troponins, chest xray were all negative. CTA chest was negative for any acute findings. No evidence of Pulmonary Embolism. Cardiology was consulted. Given her atypical chest pain and negative troponins, recommended following up as outpatient in the next few weeks for stress test. No evidence to warrant further inpatient testing. She reported improvement of her symptoms after receiving breathing treatment in ED and able to cough up a good amount of phlegm. Patient was feeling better, breathing more comfortably on room air, chest pain resolved, and was deemed stable for discharge. Suspect she is having a component of COPD exacerbation. She has never been formally diagnosed with COPD, however has quite a bit of smoking history and describes symptoms in the past similar to COPD. Medications: continue home medications as previously prescribed. prescription for albuterol inhaler and 4 days of prednisone 10mg twice daily Follow up: PCP 3-5 days Cardiology 2-4 weeks Please call to schedule / confirm appointments Consider follow up with a district sales representative for pulmonary function testing to evaluate further for COPD Physical Exam: GEN: Alert, oriented, NAD CV: Regular rate and rhythm, no edema Pulm: Nonlabored respirations on room air, clear bilaterally ABD: soft, nontender, nondistended Integumentary: No rashes Neuro: Normal speech, normal affect Vital Signs/Physical Exam: Temp Pulse Resp BP Pulse Ox 98.1 F 83 18 106/62 90 L 08/30/24 12:00 08/30/24 12:00 08/30/24 12:08/30/24 12:00 08/30/24 12:00 Laboratory Data at Discharge: WBC 12.40 thou/uL (4.3-10.9) H 08/30/24 05:17 Hgb 13.0 g/dL (12.0-15.0) 08/30/24 05:17 Hct 39.8 % (36.0-45.0) 08/30/24 05:17 Plt Count 288 thou/uL (152-406) 08/30/24 05:17 PT 11.1 SECONDS (9.4-12.5) 08/29/24 17:24 INR 0.99 08/29/24 17:24 Sodium 137 mEq/L (136-145) D 08/30/24 05:17 Potassium 4.1 mEq/L (3.5-5.1) 08/30/24 05:17 BUN 14 mg/dL (7-18) 08/30/24 05:17 Creatinine 0.61 mg/dL (0.55-1.02) 08/30/24 05:17 Glucose 153 mg/dL (74-106) H 08/30/24 05:17 Phosphorus 2.8 mg/dL (2.5-4.9) 08/30/24 05:17 Magnesium 1.9 mg/dL (1.6-2.4) 08/30/24 05:17 Total Bilirubin 0.2 mg/dL (0.2-1.0) 08/30/24 05:17 AST 14 U/L (15-37) L 08/30/24 05:17 ALT 33 U/L (13-56) 08/30/24 05:17 Alkaline Phosphatase 96 U/L (45-117) 08/30/24 05:17 Home Medications: Albuterol Inhaler [Ventolin Inhaler*] 1 puff IH BID PRN 08/30/24 Albuterol Sulfate [Albuterol Sulfate Hfa] 1 puff IH Q8H PRN 30 Days #1 inh 1 10/31/23 Famotidine 1 mg PO DAILY 08/30/24 Gabapentin 300 mg PO BID 08/30/24 Ipratropium [Atrovent 0.03% (21MCG)/[place] Nasal*] 2 sprays DAILY 08/30/24 predniSONE [Deltasone*] 10 mg PO BID 4 Days #8 tab 12/17/24 New Medications: Albuterol Sulfate [Albuterol Sulfate Hfa] 1 puff IH Q8H PRN 30 Days #1 inh PRN Reason: Shortness Of Breath predniSONE [Deltasone*] 10 mg PO BID 4 Days #8 tab Physician Discharge Instructions: Physician discharge instructions: Patient presents with intermittent chest pressure, shortness of breath, cough for ~2 days. Cardiac workup this hospitalization including EKG, troponins, chest xray were all negative. CTA chest was negative for any acute findings. No evidence of Pulmonary Embolism. Cardiology was consulted. Given her atypical chest pain and negative troponins, recommended following up as outpatient in the next few weeks for stress test. No evidence to warrant further inpatient testing. She reported improvement of her symptoms after receiving breathing treatment in ED and able to cough up a good amount of phlegm. Patient was feeling better, breathing more comfortably on room air, chest pain resolved, and was deemed stable for discharge. Suspect she is having a component of COPD exacerbation. She has never been formally diagnosed with COPD, however has quite a bit of smoking history and de scribes symptoms in the past similar to COPD. Medications: continue home medications as previously prescribed. prescription for albuterol inhaler and 4 days of prednisone 10mg twice daily Follow up: PCP 3-5 days Cardiology 2-4 weeks Please call to schedule / confirm appointments Consider follow up with a district sales representative for pulmonary function testing to evaluate further for COPD Followup: Alex Mauro MD [ACTIVE - CAN ADMIT] - 1-2 Weeks NONE,NONE [Primary Care Provider] - Time spent managing pt's care (in minutes): 45
== END 2024-08-30 14:37 | disposition home or self-care (01) ==
LOC: ER 16:44 → 4TH 22:35
PROVIDERS: ADMIT Family Medicine; ATTEND Hospitalist
DX: R07.9 Chest pain, unspecified (principal); R06.02 Shortness of breath; R05.9 Cough, unspecified; G89.29 Other chronic pain; I10 Essential (primary) hypertension; F17.210 Nicotine dependence, cigarettes, uncomplicated; Z85.3 Personal history of malignant neoplasm of breast; Z88.5 Allergy status to narcotic agent; Z96.642 Presence of left artificial hip joint; Z11.52 Encounter for screening for COVID-19
CPT/HCPCS: 93005; 85025 ×2; 80048; 36415; 83735 ×2; 84100; 85610; 80076; 84484 ×2; 80053; 83880; 87804 ×2; 71275; 71045; 94760; 96375; 96374; 99285; 87811; Q9967; J7613; J7644; J1650; J3010; J2919; G0378

== ENCOUNTER 2024-12-09 13:56 | Emergency (ER) | payer OTHER ==
--- OUTSIDE RECORDS SUMMARY | 2024-12-09 14:00 | XMS REPORT | Continuity of Care Document ---
Author Name Unknown Address [address] [facility] [address] [place] [address] [facility] Address [address] [facility] [address] [place] [address] Care Team Providers Care Bag Bundler Name Role Phone Pamela Winslow Primary Care Physician [phone] [facility] Yesy Lin MD Attending Clinician + Doctor Unassigned, [place] Attending Clinician U GERA Meng Attending Clinician Nathalie Gera Valenzuela DNP Attending Clinician Doctor Unassigned, [place] Attending Clinician U ERNST Moore Attending Clinician Unavailable Ernst Olivas MD Attending Clinician [phone] MARY KAY HARRISON Attending Clinician Unavailable Mary Kay Harrison MD Attending Clinician [phone] Radiology Attending Clinician Unavailable RADIOLOGY Attending Clinician Unavailable Babita Marrufo DO Attending Clinician [phone] Shila Hale MD Attending Clinician [phone] SHILA HALE Attending Clinician Unavailable LYNN DE PAZ Attending Clinician UnavailLynn Queen NP Attending Clinician [phone] Mehnaz Stovall MD Attending Clinician [phone] Maki MD Attending Clinician GERA SOTOMAYOR Admitting Clinician Nathalie ERNST Gonsalez Admitting Clinician Unavailable Shila Hale MD Admitting Clinician [phone] LYNN DE PAZ Admitting Clinician Unavailabl e Payers Payer Name Policy Type Policy Number Effective Date Expirati on Date Source [facility] STAR PLUS [id number] 2019 00:00:00 [facility] DUAL COMP HMO D SNP [id number] 2022 00:00:00 Problems Condition Name Condition Details Condition Category Status Onset Date Resolution Date Last Treatment Date Treating Clinician Comments Source At risk for falls At risk for falls Disease Active 2022-09 00:00: 00 [facility] Unspecifie d abnormalit ies of gait and mobility Unspecifie d abnormalit ies of gait and mobility Disease Active 2022-09 00:00: 00 [facility] SI (sacroilia c) joint dysfunctio n SI (sacroilia c) joint dysfunctio n Disease Active 09-26 00:00: 00 Overview: Formattin g of this note might be different from the original. Added automatic ally from request for surgery [id number] [facility] Cervical spondylosi s with radiculopa thy Cervical spondylosi s with radiculopa thy Disease Active 02-08 00:00: 00 Overview: Formattin g of this note might be different from the original. Added automatic ally from request for surgery [id number] [facility] Anxiety Anxiety Disease Active 10-22 00:00: 00 [facility] Chronic fatigue Chronic fatigue Disease Active 10-22 00:00: 00 [facility] History of breast cancer History of breast cancer Disease Active 04-23 00:00: 00 [facility] Cervical radiculopa thy due to osteoarthr itis of spine Cervical radiculopa thy due to osteoarthr itis of spine Disease Active 03-26 00:00: 00 Overview: Formattin g of this note might be different from the original. Added automatic ally from request for surgery [id number] [facility] Cervical radiculopa thy Cervical radiculopa thy Disease Active 12-11 00:00: 00 Overview: Formattin g of this note might be different from the original. Added automatic ally from request for surgery [id number] [facility] S/P total hip arthroplas ty S/P total hip arthroplas ty Disease Active 03-31 00:00: 00 [facility] Left hip pain Left hip pain Disease Active 02-26 00:00: 00 Overview: Formattin g of this note might be different from the original. Added automatic ally from request for surgery [id number] [facility] Hip pain, acute, left Hip pain, acute, left Disease Active 2015-09 00:00: 00 [facility] S/P orthopedic surgery, follow-up exam S/P orthopedic surgery, follow-up exam Disease Active 2015-09 00:00: 00 [facility] Greater trochanter ic bursitis of left hip Greater trochanter ic bursitis of left hip Disease Active 2015-09 00:00: 00 [facility] Cataracts, both eyes Cataracts, both eyes Disease Active 12-12 00:00: 00 [facility] Dry eye OU Dry eye OU Disease Active 12-12 00:00: 00 [facility] Lumbosacra l spondylosi s without myelopathy Lumbosacra l spondylosi s without myelopathy Disease Active 2013-09 00:00: 00 [facility] Sacroiliac joint dysfunctio n of both sides Sacroiliac joint dysfunctio n of both sides Disease Active 2013-09 00:00: 00 [facility] Myofacial muscle pain Myofacial muscle pain Disease Active 2013-09 00:00: 00 [facility] Acquired absence of breast and nipple Acquired absence of breast and nipple Disease Active 2-05 00:00: 00 [facility] Breast cancer Breast cancer Disease Active 2013-0 1-15 00:00: 00 [facility] Fracture, cause unspecifie d(E887) Fracture, cause unspecifie d(E887) Disease Active 11-05 00:00: 00 Overview: Formattin g of this note might be different from the original. Left leg and back [facility] Allergies, Adverse Reactions, Alerts Allergy Name Allergy Type Status Severity Reaction(s) Onset Date Inactive Date Treating Clinician Comments Source Codeine (Not Checked) Propensi ty to adverse reaction to drug Active 2023-09 00:00: 00 [facility] Morphine Propensi ty to adverse reaction s Active Itching 2010-09 00:00: 00 With morphine pump [facility] MORPHINE DRUG INGREDI Active ITCHING 2010-09 00:00: 00 [facility] Codeine Propensi ty to adverse reaction s Active Rash 2008-09 00:00: 00 [facility] CODEINE DRUG INGREDI Active Rash 2008-09 00:00: 00 [facility] Social History Social Habit Start Date Stop Date Quantity Comments Source History SDOH Alcohol Frequency [facility] History SDOH Alcohol Std Drinks [facility] History SDOH Alcohol Binge [facility] Exposure to SARS-CoV-2 (event) 2022-04-15 00:00:00 2022-04-25 16:01:00 Not sure [facility] Alcohol intake 2021-10-19 00:00:00 2021-10-19 00:00:00 Current drinker of alcohol (finding) [facility] History of Social function 2020-04-18 00:00:00 2020-04-18 00:00:00 [facility] Tobacco use and exposure 2014-07-03 00:00:00 2014-07-03 00:00:00 Smokeless tobacco non-user [facility] History of tobacco use 1932-09-21 00:00:00 2012-09-21 00:00:00 Smokes tobacco daily [facility] Alcoholic beverage intake 2011-06-19 00:00:00 2011-06-19 00:00:00 Current drinker of alcohol (finding) [facility] Tobacco Comment 2009-10-22 00:00:00 2009-10-22 00:00:00 1 pack weekly [facility] Alcohol Comment 2009-10-22 00:00:00 2009-10-22 00:00:00 only once monthly [facility] Sex assigned at 1955 00:00:00 1955 00:00:00 [facility] Smoking Status Start Date Stop Date Source Ex-smoker 2012-10-22 00:00:00 2012-10-22 00[facility]00[facility]00 [facility] Sm[facility] tobacco daily 2009-10-22 00:00:00 [facility] Medications Ordered Medication Name Filled Medication Name Start Date Stop Date Current Medication? Ordering Clinician Indication Dosage Frequency Signature (SIG) Comments Components Source albuterol sulfate HFA 90 mcg/actuati on aerosol inhaler 2023-09 00:00: 00 Yes 2mcg/ac tuation [facility] famotidine 20 mg tablet 2023-09 00:00: 00 Yes 1mg [facility] ipratropium bromide 21 mcg (0.03 %) nasal spray 2023-09 00:00: 00 Yes 2(0.03 %) [facility] albuterol sulfate HFA 90 mcg/actuati on aerosol inhaler 2023-09 00:00: 00 Yes 2mcg/ac tuation [facility] famotidine 20 mg tablet 2023-09 00:00: 00 Yes 1mg [facility] ipratropium bromide 21 mcg (0.03 %) nasal spray 2023-09 00:00: 00 Yes 2(0.03 %) [facility] famotidine 20 mg tablet 2023-09 00:00: 00 Yes 1mg [facility] gabapentin 300 mg capsule 2023-09 00:00: 00 Yes 1mg [facility] famotidine 20 mg tablet 2023-09 00:00: 00 Yes 1mg [facility] Bromfed DM 2 mg-30 mg-10 mg/5 mL oral syrup 2023-09 00:00: 00 Yes 10mg/5 mL [facility] triamcinolo ne acetonide (KENALOG) injection 40 mg 01-11 14:10: 00 01-11 14:07 :00 No [id number] 40mg 40 mg, Intramuscu lar, ONCE, 1 dose, On Thu01/12/24 at 0915, Routine [facility] alendronate 70 mg tablet 01-11 00:00: 00 04-07 04:59 :00 No [id number] 70mg Take 1 tablet by mouth weekly. [facility] gabapentin 300 mg capsule 01-11 00:00: 00 04-12 04:59 :00 No [id number] 300mg Take 1 capsule by mouth in the morning for 90 days. [facility] methocarbam oL 500 mg tablet 01-11 00:00: 00 04-12 04:59 :00 No [id number] 500mg Take 1 tablet by mouth at bedtime for 90 days. [facility] INHALE 1-2 PUFFS EVERY 4-6 HOURS NEEDED AND DIRECTED. 10-13 00:00: 00 Yes [id number] [facility] TAKE 1 TABLET DAILY. 10-13 00:00: 00 12-09 00:00 :00 No 20 [facility] TAKE 2 TABLETS ON DAY 1 THEN TAKE 1 TABLET A DAY FOR 4 DAYS. 10-13 00:00: 00 12-09 00:00 :00 No 250 [facility] TAKE 5 ML EVERY 4 TO 6 HOURS NEEDED. 10-13 00:00: 00 12-09 00:00 :00 No [id number] [facility] AMOXICILLIN /CLAVULANAT E POTASSIUM 875-125 MG TABS 2022-09 00:00: 00 Yes [facility] TAKE 5 ML EVERY 4 TO 6 HOURS NEEDED. 2022-09 00:00: 00 12-09 00:00 :00 No [id number] [facility] TAKE 2 TABLETS ON DAY 1 THEN TAKE 1 TABLET A DAY FOR 4 DAYS. 2022-09 00:00: 00 12-09 00:00 :00 No 250 [facility] TAKE 1 TABLET DAILY. 2022-09 2- 00:00: 00 12-09 00:00 :00 No 20 [facility] TAKE 1 TABLET 3 TIMES DAILY. 2022-09 2- 00:00: 00 12-09 00:00 :00 No 1 [facility] TAKE 1 TABLET 3 TIMES DAILY. 2022-09 2 00:00: 00 12-09 00:00 :00 No 1 [facility] TAKE 2 TABLETS ON DAY 1 THEN TAKE 1 TABLET A DAY FOR 4 DAYS. 2022-09 00:00: 00 12-09 00:00 :00 No 250 Vu [facility] TAKE 5 ML EVERY 4 TO 6 HOURS NEEDED. 2022-09 00:00: 00 12-09 00:00 :00 No [id number] [facility] triamcinolo ne acetonide (KENALOG) injection 40 mg 2022-09 17:30: 00 08-04 17:30 :00 No [id number] 40mg [facility] VALACYCLOVI R HYDROCHLORI DE 500 MG TABS 2022-09 00:00: 00 Yes Vu [facility] valACYclovi r 500 mg tablet 2022-09 00:00: 00 08-10 05:59 :00 No [id number] 500mg Take 1 tablet by mouth in the morning and 1 tablet in the evening. Do all this for 5 days. [facility] LORazepam (ATIVAN) tablet 1 mg 2022-09 16:15: 00 07-27 15:31 :00 No [id number] 1mg 1 mg, Oral, ONCE, 1 dose, On Thu07/27/23 at 1015, Routine [facility] METHYLPREDN ISOLONE DOSE PACK 4 MG TBPK 2022-09 00:00: 00 Yes [facility] methylPREDN ISolone (MEDROL, ZENIA,) 4 mg tablets 2022-09 00:00: 00 07-17 04:59 :00 No [id number] Take by mouth SEE-INSTRU CTIONS for 6 days. follow package directions [facility] METHOCARBAM OL 500 MG TABS 2022-09 0 00:00: 00 Yes [facility] GABAPENTIN 300 MG 2022-09 0 00:00: 00 Yes [facility] gabapentin 300 mg capsule 2022-09 0 00:00: 00 10-07 05:59 :00 No [id number] 300mg Take 1 capsule by mouth in the morning for 90 days. [facility] methocarbam oL (ROBAXIN) 500 mg tablet 2022-09 00:00: 00 10-07 05:59 :00 No [id number] 500mg Take 1 tablet by mouth at bedtime for 90 days. [facility] TAKE 3 TABLETS BY MOUTH ONCE [...] HOURS NEEDED 03-15 00:00: 00 Yes [facility] APPLY DIRECTED TOPICALLY ONE TIME WASH AFTER 12 HOURS 03-15 00:00: 00 Yes [facility] PANTOPRAZOL E SODIUM 40 MG TBEC 01-06 00:00: 00 Yes [facility] ALBUTEROL SULFATE HFA 108 (90 Base) MCG/ACT AERS 01-06 00:00: 00 Yes [facility] ALPRAZOLAM 1 MG TABS 01-06 00:00: 00 Yes [facility] PANTOPRAZOL E SODIUM 40 MG TBEC 4-06 00:00: 00 Yes [facility] ALPRAZOLAM 1 MG TABS 1-10 00:00: 00 Yes [facility] ondansetron (ZOFRAN (PF)) injection 4 mg 2022-0 8-12 23:15: 00 04-25 23:12 :00 No 4mg 4 mg, Slow IV Push, ONCE, 1 dose, On Thu04/25/22 at 1815, MAIKOL [facility] ketorolac (TORADOL) injection 30 mg 10-15 12:30: 00 10-15 11:24 :00 No 30mg 30 mg, Slow IV Push, ONCE, 1 dose, On Thu10/15/21 at 0630, MAIKOL [facility] FENTanyl PF (SUBLIMAZE (PF)) injection 50 mcg 10-15 11:45: 00 10-15 10:51 :00 No 50ug 50 mcg, Slow IV Push, ONCE, 1 dose, On Thu10/15/21 at 0545, Routine [facility] diazePAM (VALIUM) injection 5 mg 10-15 11:45: 00 10-15 10:52 :00 No 5mg 5 mg, Slow IV Push, ONCE, 1 dose, On Thu10/15/21 at 0545, STAT [facility] gabapentin 300 mg capsule 10-15 00:00: 00 07-08 00:00 :00 No [id number] 300mg Take 1 capsule by mouth 3 (three) times daily. [facility] methocarbam oL (ROBAXIN) 500 mg tablet 10-15 00:00: 00 07-08 00:00 :00 No [id number] 500mg Take 1 tablet by mouth every 6 (six) hours as needed for Pain (scale 7-10) (MUSCLE SPASM). [facility] alendronate 70 mg tablet 2020-09 00:00: 00 01-11 00:00 :00 No 70mg Take 1 tablet by mouth weekly. [facility] gabapentin 300 mg capsule 2020-09 00:00: 00 09-01 05:59 :00 No [id number] 300mg Take 1 capsule by mouth 2 (two) times daily for 30 days. [facility] ibuprofen (MOTRIN ORAL) 10-19 13:38: 34 Yes 400mg Take 400 mg by mouth. [facility] Cholecalcif alfred, Vitamin D3, (VITAMIN D3) 5,000 unit tablet 10-19 13:38: 34 Yes Take by mouth. [facility] Cyanocobala min (VITAMIN B-12) 1,000 mcg tablet 10-19 13:38: 34 Yes Take by mouth. [facility] meloxicam 7.5 mg tablet 09-23 00:00: 00 Yes [id number] 7.5mg Take 1 tablet by mouth 2 (two) times daily as needed (Pain). [facility] zolpidem 10 mg tablet 2018-09 00:00: 00 Yes [id number] 10mg Take 1 tablet by mouth at bedtime. [facility] diazePAM 2 mg tablet 2018-09 00:00: 00 Yes [id number] 2mg Take 1 tablet by mouth 2 (two) times daily as needed for Anxiety. [facility] cyclobenzap rine 7.5 mg tablet 04-06 00:00: 00 01-11 00:00 :00 No [facility] albuterol (PROAIR HFA) 90 mcg/actuati on inhaler 01-11 00:00: 00 Yes [id number] 2{puff} Inhale 2 Puffs every 4 (four) hours as needed for Wheezing or Shortness of Breath. [facility] fluticasone 50 mcg/actuati on nasal spray 06-04 00:00: 00 Yes [id number] 1{spray } Use 1 [place] in each nostril 2 (two) times daily. [facility] Immunizations Ordered Immunization Name Filled Immunization Name Date Status Comments Source SHINGRIX VACCINE SHINGRIX VACCINE 2021-03-15 00:00:00 Completed [facility] Influenza Virus Vaccine Quad IM 3+ YRS 2018-08-18 00:00:00 Completed [facility] Influenza Virus Vaccine Quad IM 3+ YRS 2018-08-18 00:00:00 Completed [facility] Influenza Virus Vaccine Quad IM 3+ YRS 2018-08-18 00:00:00 Completed [facility] Influenza Virus Vaccine Quad IM 3+ YRS 2018-08-18 00:00:00 Completed [facility] Influenza Virus Vaccine Quad IM 3+ YRS Unknown Completed [facility] Influenza Virus Vaccine Quad IM 3+ YRS Unknown Completed [facility] Influenza Virus Vaccine Quad IM 3+ YRS Unknown Completed [facility] Influenza Virus Vaccine Quad IM 3+ YRS Unknown Completed [facility] Influenza Virus Vaccine Quad IM 3+ YRS Unknown Completed [facility] Vital Signs Vital Name Observation Time Observation Value Comments S ource Systolic blood pressure 2024-01-12 13:14:00 125 mm[Hg] [facility] Diastolic blood pressure 2024-01-12 13:14:00 66 mm[Hg] [facility] Heart rate 2024-01-12 13:14:00 87 /min [facility] Body temperature 2024-01-12 13:14:00 36.22 Martha [facility] Body height 2024-01-12 13:14:00 144.8 cm [facility] Body weight 2024-01-12 13:14:00 54.885 kg [facility] BMI 2024-01-12 13:14:00 26.18 kg/m2 [facility] Systolic blood pressure 2023-08-04 17:12:00 159 mm[Hg] [facility] Diastolic blood pressure 2023-08-04 17:12:00 72 mm[Hg] [facility] Heart rate 2023-08-04 17:12:00 93 /min [facility] Body [facility] 2023-08-04 17:12:00 36 Martha [facility] Body height 2023-08-04 17:12:00 144.8 cm [facility] Body weight 2023-08-04 17:12:00 52.164 kg [facility] BMI 2023-08-04 17:12:00 24.89 kg/m2 [facility] Systolic blood pressure 2023-07-27 15:30:00 148 mm[Hg] [facility] Diastolic blood pressure 2023-07-27 15:30:00 81 mm[Hg] [facility] Heart rate 2023-07-27 15:30:00 95 /min [facility] Respiratory rate 2023-07-27 15:30:00 18 /min [facility] Oxygen saturation in Arterial blood by Pulse oximetry 2023-07-27 15:30:00 93 /min [facility] Diastolic blood pressure 2023-07-08 21:56:00 96 mm[Hg] [facility] Heart rate 2023-07-08 21:56:00 106 /min [facility] Body temperature 2023-07-08 21:56:00 36.94 Martha [facility] Respiratory rate 2023-07-08 21:56:00 16 /min [facility] Body height 2023-07-08 21:56:00 144.8 cm [facility] Body weight 2023-07-08 21:56:00 53.071 kg [facility] BMI 2023-07-08 21:56:00 25.32 kg/m2 [facility] Oxygen saturation in Arterial blood by Pulse oximetry 2023-07-08 21:56:00 92 /min [facility] Systolic blood pressure 2023-07-08 21:56:00 148 mm[Hg] [facility] Systolic blood pressure 2022-04-26 00:30:00 130 mm[Hg] [facility] Diastolic blood pressure 2022-04-26 00:30:00 78 mm[Hg] [facility] Heart rate 2022-04-26 00:30:00 98 /min [facility] Respiratory rate 2022-04-26 00:30:00 18 /min [facility] Oxygen saturation in Arterial blood by Pulse oximetry 2022-04-26 00:30:00 97 /min [facility] Body temperature 2022-04-25 23:30:00 36 Martha [facility] Body height 2022-04-25 21:03:00 149.9 cm [facility] Body weight 2022-04-25 21:03:00 54.432 kg [facility] BMI 2022-04-25 21:03:00 24.24 kg/m2 [facility] Systolic blood pressure 2021-10-15 10:24:00 153 mm[Hg] [facility] Diastolic blood pressure 2021-10-15 10:24:00 86 mm[Hg] [facility] Heart rate 2021-10-15 10:24:00 115 /min [facility] Body temperature 2021-10-15 10:24:00 35.94 Martha [facility] Respiratory rate 2021-10-15 10:24:00 20 /min [facility] Body height 2021-10-15 10:24:00 147.3 cm [facility] Body weight 2021-10-15 10:24:00 49.896 kg [facility] BMI 2021-10-15 10:24:00 22.99 kg/m2 [facility] Oxygen saturation in Arterial blood by Pulse oximetry 2021-10-15 10:24:00 92 /min [facility] BP Systolic 2024-08-31 10:19:00 Step hen Frantz Ryan BP Diastolic 2024-08-31 10:19:00 Justus phen F Ryan Weight Measured 2024-08-31 10:19:00 135.00 pounds Vubernard Davis Height Measured 2024-08-31 10:19:00 60.00 inches Vu F Ryan Body Temperature 2024-08-31 10:19:00 98.30 degrees Vu F Ryan Heart Rate 2024-08-31 10:19:00 63.00 /min Lisa en F Ryan Respiratory Rate 2024-08-31 10:19:00 Vu F Ryan BP Systolic 2024-07-20 08:32:00 104 mm[Hg] Step hen F Ryan BP Diastolic 2024-07-20 08:32:00 73 mm[Hg] Justus [...] Respiratory Rate 2023-08-21 18:04:00 Vu F Ryan Heart Rate 2023-08-17 16:32:00 97.00 /min Lisa en F Ryan Respiratory Rate 2023-08-17 16:32:00 18.00 /min Vu F Ryan BP Systolic 2023-08-17 16:32:00 130 mm[Hg] Pineda Davis BP Diastolic 2023-08-17 16:32:00 76 mm[Hg] [facility] Weight Measured 2023-08-17 16:32:00 112.20 pounds [facility] Height Measured 2023-08-17 16:32:00 60.00 inches [facility] Body Temperature 2023-08-17 16:32:00 98.30 degrees [facility] Procedures Procedure Date / Time Performed Performing Clinician Source MR CERVICAL SPINE WO CONTRAST 2023-07-27 16:58:44 Gera Sotomayor [facility] ASSIGNMENT OF BENEFITS 2023-07-08 21:37:50 Jayro dumont Unassigned, [place] [facility] AUTHORIZATION FOR RELEASE OF PHI 2022-05-21 05:01:00 Doctor Unassigned, [place] [facility] CT CERVICAL SPINE WO CONTRAST 2022-04-26 00:00:00 Ernst Olivas [facility] CT LUMBAR SPINE WO CONTRAST 2022-04-26 00:00:00 Ernst Olivas [facility] CT THORACIC SPINE WO CONTRAST 2022-04-26 00:00:00 Enrst Olivas [facility] HIP, 2 VIEWS, UNILATERAL 2017-03-31 16:10:00 Leslee Brooks [facility] HOSPITAL ADMISSION 2017-03-31 05:01:00 Doctor Un assigned, [place] [facility] DEXA AXIAL (HIP AND SPINE) 2012-11-03 14:17:00 Yesy Lin [facility] MISC TEST, FROZEN 2012-09-28 17:09:00 Yesy Lin [facility] BREAST ULTRASOUND LIMITED 2012-09-28 16:44:00 Yesy Lin [facility] DIGITAL DIAGNOSTIC MAMMOGRAM, UNILATERAL 2012-09-28 16:11:00 Yesy Lin [facility] Encounters Start Date/Time End Date/Time Encounter Type Admission Type Attending Clinicians Care Facility Care Department Encounter ID Source 2021-07-14 07:52:30 Emergency [facility] [id number] [facility] 2012-09-28 00:00:00 2024-10-29 04:57:00 Orders Only Yesy Lin [facility] [id number] [id number] [facility] 2012-11-03 00:00:00 2024-10-29 04:52:46 Orders Only Yesy Lin [facility] [id number] [id number] [id number] [facility] 2015-03-15 00:00:00 2024-10-29 04:27:36 Orders Only Doctor Unassigned, [place] Doctor Unassigned, [place] [facility] [id number] [id number] [id number] [id number] [facility] 2017-03-31 00:00:00 2024-10-29 03:43:26 Orders Only Doctor Unassigned, [place] Doctor Unassigned, [place] [facility] [id number] [id number] [id number] [facility] 2017-03-31 00:00:00 2024-10-29 03:43:25 Orders Only Doctor Unassigned, [place] Doctor Unassigned, [place] [facility] ([facility] [id number] 350.1.13.10 4.2.7.2.686 [id number] [facility] 2024-08-31 00:00:00 2024-08-31 00:00:00 Outpatient Visit [facility] [id number] [facility] 2024-07-20 00:00:00 2024-07-20 00:00:00 Outpatient Visit [facility] [id number] [facility] 2024-07-06 11:27:27 2024-07-06 11:27:27 Outpatient SFA [facility] [id number] [facility] 2024-07-06 00:00:00 2024-07-06 00:00:00 Outpatient Visit [facility] [id number] [facility] 2024-01-12 08:40:00 2024-01-12 09:13:45 Outpatient R GERA LEÓN [facility] [id number] [facility] 2024-01-12 08:40:00 2024-01-12 09:13:45 Office Visit Gera León [facility] [place] [facility] [id number] 350.1.13.10 [id number] [id number] [facility] 2023-10-13 14:39:40 2023-10-13 14:39:40 Outpatient SFA [facility] [id number] [facility] 2023-08-21 18:03:38 2023-08-21 18:03:38 Outpatient SFA [facility] [id number] [facility] 2023-08-17 16:23:37 2023-08-17 16:23:37 Outpatient SFA [facility] [id number] Vu Davis 2023-08-04 11:40:00 2023-08-04 11:40:00 Office Visit Norberto abbott [facility] C[facility] [place] [facility] .2.840.114 350.1.13.10 4.2.7.2.686 [id number] [facility] 2023-08-04 11:40:00 2023-08-04 11:27:14 Outpatient R GERA LEÓN [facility] [id number] [facility] 2023-07-28 11:40:00 2023-07-28 11:40:00 Outpatient R NORBERTO ABBOTT [facility] [id number] [facility] 2023-07-27 10:30:00 2023-07-27 23:59:00 Outpatient R NORBERTO ABBOTT [facility] [id number] [facility] 2023-07-27 08:49:58 2023-07-27 23:59:00 Hospital Encounter Norberto abbott [facility] ([facility]) 1.2.840.114 350.1.13.10 4.2.7.2.686 [id number] [facility] 2023-07-08 16:40:00 2023-07-08 17:03:05 Outpatient R NORBERTO ABBOTT [facility] [id number] [facility] 2023-07-08 16:40:00 2023-07-08 17:03:05 Office Visit Norberto abbott [facility] 1.2.840.114 350.1.13.10 4.2.7.2.686 [id number] [facility] 2023-07-08 00:00:00 2023-07-08 00:00:00 Orders Only Doctor Unassigned, [place] [facility] 1.2.840.114 350.1.13.10 4.2.7.2.686 [id number] [facility] 2023-05-21 16:40:00 2023-05-21 16:40:00 Outpatient R NORBERTO ABBOTT [facility] [id number] [facility] 2022-05-21 00:00:00 2022-05-21 00:00:00 Orders Only Doctor Unassigned, [place] [facility] 1.2840.114 350.1.13.10 4.2.7.2.686 [id number] [facility] 2022-04-25 16:05:00 2022-04-25 20:41:00 Emergency X ERNST OLIVAS [facility] [id number] [facility] 2022-04-25 16:05:00 2022-04-25 20:41:00 Emergency Ernst Olivas C [facility] 1.2840.114 350.1.13.10 4.2.7.2.686 [id number] [facility] 2021-10-15 04:26:00 2021-10-15 05:53:00 Emergency X OSVALDO HARRISONMINDYALECIA [facility] [id number] [facility] 2021-10-15 04:26:00 2021-10-15 05:53:00 Emergency Mary Kay Harrison Darrell [facility] 1.2840.114 350.1.13.10 4.2.7.2.686 [id number] [facility] 2021-08-19 00:00:00 2021-08-19 00:00:00 Telephone Norberto abbott [facility] 1.2840.114 350.1.13.10 4.2.7.2.686 [id number] [facility] 2021-08-16 13:09:18 2021-08-16 23:59:00 [facility] [id number] [facility] 2021-08-16 13:09:18 2021-08-16 23:59:00 Hospital Encounter JonathanManish abbott [facility] 1.2840.114 350.1.13.10 4.2.7.2.686 [id number] [facility] 2021-08-16 13:09:18 2021-08-16 23:59:00 Outpatient R GERA LEÓN [facility] [id number] [facility] 2021-08-01 10:40:00 2021-08-01 10:49:20 Outpatient R NORBERTO ABBOTT [facility] [id number] [facility] 2021-08-01 10:30:15 2021-08-01 10:49:20 [facility] [place] [facility] 1.840.114 350.1.13.10 4.2.7.2.686 [id number] [facility] 2021-08-01 00:00:00 2021-08-01 00:00:00 Orders Only Doctor Unassigned, [place] [facility] 1.840.114 350.1.13.10 4.2.7.2.686 [id number] [facility] 2021-04-18 15:08:12 2021-04-18 23:59:00 Hospital En[facility] 1.840.114 350.1.13.10 4.2.7.2.686 [id number] [facility] 2021-04-18 14:38:07 2021-04-18 15:39:44 Office Visit [facility] 1.840.114 350.1.13.10 4.2.7.2.686 [id number] [facility] 2021-04-18 15:06:23 2021-04-18 15:07:00 [facility] ..840.114 350.1.13.10 4.2.7.2.686 [id number] [facility] 2021-04-18 14:15:00 2021-04-18 14:15:00 Outpatient R NORBERTO ABBOTT [facility] [id number] [facility] 2021-04-09 16:03:59 2021-04-09 23:59:00 Hospital Encounter Radiology [facility] ..840.114 350.1.13.10 4.2.7.2.686 [id number] [facility] 2021-04-09 00:00:00 2021-04-09 00:00:00 Outpatient R RADIOLOGY [facility] [id number] [facility] 2021-03-18 09:00:00 2021-03-18 09:00:00 Outpatient R NORBERTO ABBOTT [facility] [id number] [facility] 2021-03-05 10:40:00 2021-03-05 10:40:00 Outpatient R NORBERTO ABBOTT [facility] [id number] [facility] 2020-12-11 13:19:06 2020-12-11 23:59:00 [facility] ..840.114 350.1.13.10 4.2.7.2.686 [id number] [facility] 2020-12-11 00:00:00 2020-12-11 00:00:00 Outpatient R NORBERTO ABBOTT [facility] [id number] [facility] 2020-12-04 11:41:00 2020-12-04 12:46:00 Emergency Babita Marrufo [facility] 1.2.840.114 350.1.13.10 4.2.7.2.686 [id number] [facility] 2020-11-22 00:00:00 2020-11-22 00:00:00 Telephone Jonathan-Ku scar [facility] 1.2.840.114 350.1.13.10 4.2.7.2.686 [id number] [facility] 2020-07-26 10:45:33 2020-07-26 16:27:04 Office Visit JonathanManish scar [facility] 1.2.840.114 350.1.13.10 4.2.7.2.686 [id number] [facility] 2020-07-26 10:45:00 2020-07-26 10:45:00 Outpatient R JONATHANMANISH [facility]AR [facility] [id number] [facility] 2020-07-26 00:00:00 2020-07-26 00:00:00 Orders Only Doctor Unassigned, [place] [facility] 1.2.840.114 350.1.13.10 4.2.7.2.686 [id number] [facility] 2020-03-28 19:24:00 2020-03-28 23:59:00 Hospital Encounter Radiology [facility] 1.2.840.114 350.1.13.10 4.2.7.2.686 [id number] [facility] 2020-03-28 19:24:00 2020-03-28 23:59:00 Hospital Encounter Radiology [facility] 1.2.840.114 350.1.13.10 4.2.7.2.686 [id number] 2020-03-28 19:24:09 2020-03-28 19:24:09 Outpatient R RADIOLOGY [facility] [id number] [facility] 2019-12-20 08:48:31 2020-01-23 15:03:17 Telemedici ne Visit AnalizuleykavaleShila [facility] 1.2.840.114 350.1.13.10 4.2.7.2.686 [id number] [facility] 2019-12-20 08:48:31 2020-01-23 15:03:17 Telemedici ne Visit Analizuleykavale Shila Flores [facility] 1.2.840.114 350.1.13.10 4.2.7.2.686 [id number] 2020-01-23 14:45:00 2020-01-23 14:45:00 Outpatient R [facility] [id number] [facility] 2020-01-23 07:56:45 2020-01-23 08:11:45 Telemedici ne Visit JonathanManish abbott [facility] 1.2.840.114 350.1.13.10 4.2.7.2.686 [id number] [facility] 2020-01-23 07:56:45 2020-01-23 08:11:45 Telemedici ne Visit JonathanManish abbott [facility] 1.2.840.114 350.1.13.10 4.2.7.2.686 [id number] 2019-12-20 15:30:00 2019-12-20 15:30:00 Outpatient R SHILA HALE [facility] [id number] [facility] 2019-12-07 14:00:00 2019-12-07 14:00:00 Outpatient R LYNN DE PAZ [facility] [id number] [facility] 2019-12-01 00:00:00 2019-12-01 00:00:00 Case Management Lynn De [facility] 1..840.114 350.1.13.10 4.2.7.2.686 [id number] [facility] 2019-11-24 14:00:00 2019-11-24 14:00:00 Outpatient R ZANDRA LYNN [facility] [id number] [facility] 2019-11-07 14:57:00 2019-11-07 23:59:00 Hospital Encounter Shila Hale [facility] 1.2.840.114 350.1.13.10 4.2.7.2.686 [id number] [facility] 2019-11-07 14:55:00 2019-11-07 14:56:00 Hospital Encounter NyaManish scar [facility] 1..840.114 350.1.13.10 4.2.7.2.686 [id number] [facility] 2019-11-07 14:55:26 2019-11-07 14:55:26 Outpatient R JONATHAN-KU VANOSCAR [facility] [id number] [facility] 2019-10-27 13:41:07 2019-10-27 23:59:00 Outpatient R JONATHAN-KU VANOSCAR [facility] [id number] [facility] 2019-10-27 13:41:07 2019-10-27 23:59:00 Outpatient R JONATHAN-KU EKATERINALAMONT [facility] [id number] [facility] 2019-10-27 13:41:00 2019-10-27 23:59:00 Hospital Encounter Jonathan-Ku scar [facility] 1..840.114 350.1.13.10 4.2.7.2.686 [id number] [facility] 2019-10-27 12:21:17 2019-10-27 14:26:20 Office Visit Gera León [facility] 1.20.114 350.1.13.10 4.2.7.2.686 [id number] [facility] 2019-10-20 00:00:00 2019-10-20 00:00:00 [facility] 1.2840.114 350.1.13.10 4.2.7.2.686 [id number] [facility] 2019-10-19 00:00:00 2019-10-19 00:00:00 Orders Only Doctor Unassigned, [place] [facility] 1.2.114 350.1.13.10 4.2.7.2.686 [id number] [facility] 2019-08-24 09:56:49 2019-08-24 09:56:00 Outpatient R GERA LEÓN [facility] [id number] [facility] 2019-05-25 13:22:00 2019-05-25 15:48:00 Hospital Encounter Shila Hale [facility] ([facility]) 1.2.114 350.1.13.10 4.2.7.2.686 [id number] [facility] 2019-05-25 00:00:00 2019-05-25 00:00:00 Orders Only Doctor Unassigned, [place] [facility] 1.2.114 350.1.13.10 4.2.7.2.686 [id number] [facility] 2019-04-28 00:00:00 2019-04-28 00:00:00 Telephone [facility] 1.2.840.114 350.1.13.10 4.2.7.2.686 [id number] [facility] 2019-04-27 13:46:00 2019-04-27 16:51:00 Hospital Encounter Shila Hale [facility] ([facility]) 1.2.840.114 350.1.13.10 4.2.7.2.686 [id number] [facility] 2019-04-27 00:00:00 2019-04-27 00:00:00 Orders Only Doctor Unassigned, [place] [facility] 1.2.840.114 350.1.13.10 4.2.7.2.686 [id number] [facility] 2019-04-21 00:00:00 2019-04-21 00:00:00 Telephone Bentley Rebollar Avina Rizwan 1.2.840.114 350.1.13.10 4.2.7.2.686 [id number] [facility] 2019-04-15 12:46:10 2019-04-15 13:16:10 Office Visit Shila Hale [facility] 1.2.840.114 350.1.13.10 4.2.7.2.686 [id number] [facility] 2019-01-13 12:14:13 2019-01-13 23:59:00 Outpatient LYNN MARIEE [facility] [id number] [facility] Results Test Description Test Time Test Comments Results Result Comments Source HIP, 2 VIEWS, UNILATERAL 19:08:00 *.*.*.*.*.*.*.*.*.*.*.* .*.*FINAL*.*.*.*.*.*.*. *.*.*.*.*.*.*.*EXAM: HIP, 2 VIEWS, UNILATERAL-LEFT SIDE HISTORY: total hip arthroplasty COMPARISON: Hip radiograph, 01/14/2017. FINDINGS: Interval installation of a total left hip arthroplasty in anatomic alignment isobserved. There is no significant cassius-hardware fracture or cassius-hardwarelucency. Mild to moderate osteoarthrosis of the right hip manifested by joint space lossand acetabular sclerosis. There is partially evaluated lumbosacral spondylosis. TARIK LLANES MD ?Personally interpreted by: MELANY VASQUEZ MD /Signed/ MELANY VASQUEZ MD [facility] DEXA-AXIAL 15:30:00 *.*.*.*.*.*.*.*.*.*.*.* .*.*FINAL*.*.*.*.*.*.*. *.*.*.*.*.*.*.*History: 56-year-old woman postmenopausal with history of breast cancer andArimidex therapy.DEXA:- - - - - - - - - - - - - - - - - - - - - - - - - - - - - - - - - - - - - - - -- - - - - - - - - - - - - - - - - - - - -WHO-definitions T scoreNormal + / - 1 SD around the meanOsteopenia >1 to 2.4 SD below the meanOsteoporosis >2.5 SD below the meanFracture risk doubles for each 1.0 SD below the mean.- - - - - - - - - - - - - - - - - - - - - - - - - - - - - - - - - - - - - - - -- - - - - - - - - - - - - - - - - - - - -JANESSA EID MD ?Personally interpreted by: FABIÁN SEGUNDO MD /Signed/ FABIÁN SEGUNDO MD [facility] MISC TEST, FROZEN 12:57:00 [facility] TESTCancer Antigen 27.29.TEST NAME ?RESULT UNITS ? ? ?H/L ? REFERENCE INTERVAL.Cancer Antigen 27.29 ? 17.8 U/mL ? .0-40.0.INTERPRETIVE INFORMATION: Cancer Antigen 27.29The CA 27.29 assay is intended for use in monitorin)disease progression and/or response to therapy in patientswith metastatic disease, and 2) disease recurrence inpatients treated previously for stages II or III breastcarcinoma who are clinically free of the disease. Serialtesting in patients who are clinically free of diseaseshould be used in conjunction with other clinical methodsfor early detection of cancer recurrence..Limitations : Patients with confirmed breast carcinomafrequently have CA 27.29 assay values in the same range ashealthy individuals. ?Elevations may also be observed inpatients with non malignant disease. Results of this testmust always be interpreted in the context of morphologicand other relevant data, and should not be used alone for adiagnosis of malignancy..Methodology : Siemens Conelumaur CA 27.29chemiluminescent immunoassay was used. Results obtainedwith different assay methods or kits cannot be usedinterchangeably...L AB [facility] BREAST ULTRASOUND LIMITED 18:10:00 History: ?Per patient report, recent chest CT scan performed at an outside institution showed a questionable finding in the right breast. ?The patient now presents for additional followup.Computer aided detection (CAD) utilized. No comparison images were available at the time of this reading. Right Breast Findings:The breast is heterogeneously dense (51% - 75% fibroglandular). This may lower the sensitivity of mammography. An area of focal asymmetry is seen in the upper outer quadrant of the right breast.Right Breast Ultrasound: ?Ultrasound demonstrates no sonographic abnormality at the site of the mammographic asymmetry at 11 o'clock at a distance of 5 cm from the nipple. Real time ultrasound images of this area show findings which appear most consistent with normal breast tissue. ?Similar findings are also seen at 8 o'clock, 4 cm from the nipple. ?Correlation with the patients prior mammograms and CT scan are recommended for further evaluation. The remainder of the right breast and right axillary ultrasound is unremarkable. ? [facility] DIGITAL DIAGNOSTIC MAMMOGRAM, UNILATERAL 18:10:00 History: ?Per patient report, recent chest CT scan performed at an outside institution showed a questionable finding in the right breast. ?The patient now presents for additional followup.Computer aided detection (CAD) utilized. No comparison images were available at the time of this reading. Right Breast Findings:The breast is heterogeneously dense (51% - 75% fibroglandular). This may lower the sensitivity of mammography. An area of focal asymmetry is seen in the upper outer quadrant of the right breast.Right Breast Ultrasound: ?Ultrasound demonstrates no sonographic abnormality at the site of the mammographic asymmetry at 11 o'clock at a distance of 5 cm from the nipple. Real time ultrasound images of this area show findings which appear most consistent with normal breast tissue. ?Similar findings are also seen at 8 o'clock, 4 cm from the nipple. ?Correlation with the patients prior mammograms and CT scan are recommended for further evaluation. The remainder of the right breast and right axillary ultrasound is unremarkable. ? [facility] Notes Date/Time Note Provider Source Vu F. [facility]2024-11-06 00:00:00 Vu Spear [facility]2024-10-23 00:00:00 [facility]
[2024-12-09] MEDS ORDERED: KETOROLAC 30 MG/ML INJ ONE (14:42)
[2024-12-09] MEDS ORDERED: NA CHLORIDE 0.9% 500 ML ONE (14:42)
--- NOTE | 2024-12-09 14:55 | RAD REPORT ---
EXAM: Chest Single View HISTORY: 68 years Female fall COMPARISON: 08/29/2024 FINDINGS: LUNGS/PLEURA: The lungs are clear. No pleural effusions or pneumothorax. No pulmonary edema. CARDIAC/MEDIASTINUM: The cardiac silhouette is within normal limits. UPPER ABDOMEN: No significant abnormality. BONES: No acute abnormality. Osteopenia LINES/TUBES/OTHER: Surgical changes in the left chest wall and axilla. IMPRESSION: No evidence of acute cardiopulmonary disease. No significant change from prior.
--- NOTE | 2024-12-09 14:56 | RAD REPORT ---
EXAMINATION: Pelvis CLINICAL INDICATION: Female, 68 years old. fall COMPARISON: No prior exam. FINDINGS: No acute fracture. Left hip arthroplasty. No malalignment/dislocation. No significant focal degenerative change. Other: n/a IMPRESSION: No acute osseous abnormality.
--- NOTE | 2024-12-09 14:57 | RAD REPORT ---
EXAM:Femur Left HISTORY: PAIN COMPARISON: None IMPRESSION: Irregularity at the proximal pole of the patella with knee effusion. Correlate with mechanism of inju ry for possible patellar fracture. CT could confirm. Intact left hip arthroplasty. Peripheral vascular calcifications.
[2024-12-09 15:05] LABS: Absolute Basophils 0.1 K/uL (0-0.5); Absolute Eosinophils 0.2 K/uL (0-0.5); Absolute Lymphocytes (CBC) 1.4 K/uL (0.7-4.9); Absolute Monocytes 0.6 K/uL (0.1-1.3); Basophils % 0.8 % (0-1.3); Eosinophils % 2.6 % (0-4.4); Hematocrit 44.3 % (36.0-45.0); Hemoglobin 14.7 g/dL (12.0-15.0); Lymphocytes % 22.4 % (15.3-44.8); MCHC 33.2 g/dL (32.0-36.0); MCV 90.4 fL (80-100); MPV 9.6 fL (7.6-11.3); Monocytes % 9.6 % (3.3-12.3); Neutrophils % 64.6 % (41.7-73.7); Platelets 273 thou/uL (152-406); Red Cell Distribution Width 17.4 % (12.1-15.2)
[2024-12-09 15:23] LABS: ALT/SGPT 31 U/L (13-56); AST/SGOT 15 U/L (15-37); Albumin 3.5 g/dL (3.4-5.0); Albumin/Globulin Ratio 1.1 (1.1-1.8); Alkaline Phosphatase 126 U/L (45-117); Anion Gap 7.9 mEq/L (5.0-15.0); BUN Blood Urea Nitrogen 14 mg/dL (7-18); Bicarbonate 26 mEq/L (21-32); Bilirubin Total 0.2 mg/dL (0.2-1.0); Globulin 3.3 g/dL (2.3-3.5); Glomerular Filtration Rate 102 ml/min (=/>90); Glucose Level 105 mg/dL (74-106); Potassium 3.9 mEq/L (3.5-5.1); Protein, Total 6.8 g/dL (6.4-8.2); Sodium Level 140 mEq/L (136-145)
[2024-12-09 15:33] LABS: Bilirubin Direct < 0.2 mg/dL (0-0.2); Troponin High Sensitivity < 3.0 pg/mL (<58.9)
--- NOTE | 2024-12-09 15:54 | RAD REPORT ---
EXAMINATION: Head C Spine Mpr Wo Con CLINICAL INDICATION: Female, 68 years old. fall TECHNIQUE: Axial CT images from the skull base to the vertex without intravenous contrast. Axial CT i mages through the cervical spine were obtained without intravenous contrast. Sagittal and coronal reformatted images were created from the data set. Coronal and sagittal reformatted images were creat ed from the data set. One or more of the following dose reduction techniques were used: Automated exposure control, adjustment of the mA and/or kV according to patient size, and/or iterative reconstr uction. Unless otherwise specified, incidental findings do not require dedicated imaging follow-up. [id number]. COMPARISON: No prior exam. FINDINGS: Head: INTRACRANIAL: No acute intracranial hemorrhage. No hydrocephalus. No mass effect or midline shift. Mi ld chronic small vessel ischemic changes.Mild cerebral atrophy. VASCULATURE: No visualized abnormalities in the arteries or dural venous sinuses. SCALP/SKULL: No calvarial fracture identified. No acute soft tissue abnormality. SINUSES: The visualized paranasal sinuses are mostly clear. No significant mastoid fluid. Cervical spine: ALIGNMENT: The cervical spine has normal alignment without scoliosis or spondylolisthesis. BONE: Vertebral body heights are maintained. No aggressive osseous lesions. DEGENERATIVE: Multilevel cervical spondylosis with evidence of bilateral neural foraminal narrowing. No high grade central spinal stenosis. SOFT TISSUE: No significant abnormalities in the soft tissue of the neck. The visualized lung apices are clear. IMPRESSION: No acute intracranial abnormality. No acute fracture or traumatic malalignment of the cervical spine.
--- NOTE | 2024-12-09 16:04 | RAD REPORT ---
EXAM: Chest Abdomen Pelvis W Cont CLINICAL INDICATION: Female, 68 years FALL TECHNIQUE: CT chest, abdomen and pelvis was performed, with IV contrast, as per department protocol. Axial, sagittal and coronal reconstructions were obtained. One or more of the following dose reduction techniques were used: Automated exposure control, adjustment of the mA and/or kV according to the patient size, and/or iterative reconstruction. Unless otherwise specified, incidental findings do not require dedicated imaging follow-up. [id number]. COMPARISON: 08/29/2024 FINDINGS: THORAX: LOWER NECK AND CHEST WALL: Visualized thyroid gland and soft tissues are normal. LUNGS AND AIRWAYS: Airways are clear. No evidence of airspace or interstitial process.No suspicious a nd/or stable pulmonary nodules. PLEURA: No pleural effusion. No pneumothorax. MEDIASTINUM AND LYMPH NODES: No mediastinal mass or fluid collection. Normal size mediastinal, hilar, and axillary lymph nodes. Small hiatal hernia. THORACIC AORTA: No thoracic aortic aneurysm. Atherosclerotic changes are present. PULMONARY ARTERIES: Caliber is within normal limits. HEART: Normal heart size. No coronary calcifications.No significant pericardial effusion. ABDOMEN/PELVIS: UPPER GI: No significant abnormality. LIVER: No significant focal abnormality. GALLBLADDER/BILE DUCTS: No biliary ductal dilatation.? PANCREAS: No mass, ductal dilation, or cassius-pancreatic fluid. SPLEEN: Unremarkable. ADRENALS: No adrenal masses. KIDNEYS AND URETERS: No hydronephrosis.Low density and/or too small to characterize renal lesions whi ch are statistically benign.No renal calculi.No ureteral calculi. ABDOMINAL AORTA AND OTHER VESSELS: Moderate atherosclerotic changes without aortic aneurysm. PERITONEUM: No abnormal free fluid. No free air. LYMPH NODES: No pathologic lymphadenopathy. ABDOMINAL WALL: Unremarkable SMALL BOWEL/COLON: Small bowel has normal course and caliber. No colonic wall thickening or pericolon ic inflammatory changes.Normal appendix. Moderate diverticulosis without diverticulitis. Mild formed colonic stool burden. URINARY BLADDER: Underdistended but grossly unremarkable. REPRODUCTIVE ORGANS: Uterus surgically absent. No adnexal abnormality. COMBINED: MUSCULOSKELETAL: Remote appearing L2 compression fracture. Presumed abandoned epidural catheter at L3 -S1 Left breast prosthesis ADDITIONAL FINDINGS: None. IMPRESSION: No evidence of significant trauma to the chest, abdomen, or pelvis.
[2024-12-09] MEDS ORDERED: LIDOCAINE 4% PATCH ONE (16:34)
--- NOTE | 2024-12-09 16:45 | ER ---
Nurse's Notes [facility] Name: Cindy Malin Age: 68 yrs Sex: Female : 1955 Arrival Date: 12/09/2024 Time: 13:56 Bed 12 Private MD: Diagnosis: Fall (on) (from) other stairs and steps;Cervicalgia;Dorsalgia, unspecified;Pain in left hip Presentation: 12/09 14:10 Chief complaint: Patient states: she fell off her porch 2 days ago when she tripped ap3 over her cat. patient reports she fell onto grass with positive LOC for an uknown amount of time. patient is complaining now of left sided neck pain, left sided back pain, left shoulder pain, left hip pain and left upper leg pain. patient currently rates her pain as a 10/10 on the pain scale. patient states she is able to control her bladder and bowels. patient drover herself to this facility and ambulated without assistance. Coronavirus screen: At this time, the client does not indicate any symptoms associated with coronavirus-19. Ebola Screen: No symptoms or risks identified at this time. Initial Sepsis Screen: Does the patient meet any 2 criteria? No. Patient's initial sepsis screen is negative. Does the patient have a suspected source of infection? No. Patient's initial sepsis screen is negative. Risk Assessment: Do you want to hurt yourself or someone else? Patient reports no desire to harm self or others. Onset of symptoms was December 07, 2024. Transition of care: patient was not received from another setting of care. 14:10 Method Of Arrival: Ambulatory ap3 14:10 Acuity: SHAMA 2 ap3 Triage Assessment: 14:17 General: Appears uncomfortable, Behavior is calm, cooperative, appropriate for age. ap3 Pain: Complains of pain in back, left hip, left arm, left leg and neck Pain currently is 10 out of 10 on a pain scale. Neuro: Level of Consciousness is awake, alert, obeys commands, Ironer Sock are equal bilaterally Gait is steady. Cardiovascular: Patient's skin is warm and dry. Respiratory: Airway is patent Respiratory effort is even, unlabored, Respiratory pattern is regular, symmetrical. Historical: - Allergies: 14:16 Codeine; ap3 14:16 Benadryl; ap3 14:16 Allergy Medicine; ap3 - Home Meds: 14:16 None [Active]; ap3 - PMHx: 14:16 Back pain; breast cancer; ap3 - PSHx: 14:16 hip replacement- Left; ap3 - Immunization history:: Client reports having NOT received the Covid vaccine. - Infectious Disease History:: Denies. - Social history:: Smoking status: Patient reports the use of cigarette tobacco products, smokes one-half pack cigarettes per day. Screenin:31 [facility] ED Fall Risk Assessment (Adult) History of falling in the last 3 months, ld1 including since admission Yes- single mechanical fall (1 pt) Confusion or Disorientation No (0 pts) Intoxicated or Sedated No (0 pts) Impaired Gait No (0 pts) Mobility Assist Device Used No (0 pt) Altered Elimination No (0 pt) Score/Fall Risk Level 0 - 2 = Low Risk Oriented to surroundings, Hourly rounding (assess needs \T\ fall precautionary measures) done. Abuse screen: Denies threats or abuse. Denies injuries from another. Nutritional screening: No deficits noted. Tuberculosis screening: No symptoms or risk factors identified. Assessment: 14:45 General: Appears in no apparent distress. comfortable, Behavior is calm, cooperative, ld1 appropriate for age. 14:45 Pain: Complains of pain in face and left leg and left arm and pelvis and back and left ld1 hip Pain does not radiate. Pain currently is 8 out of 10 on a pain scale. Quality of pain is described as throbbing, Pain began 2-3 days ago. Is continuous. Neuro: Level of Consciousness is awake, alert, obeys commands, Oriented to person, place, time, situation. Cardiovascular: Capillary refill < 3 seconds Patient's skin is warm and dry. 14:45 Respiratory: Airway is patent Respiratory effort is even, unlabored. GI: Abdomen is ld1 flat, non-distended. : No signs and/or symptoms were reported regarding the genitourinary system. EENT: No signs and/or symptoms were reported regarding the EENT system. Derm: No signs and/or symptoms reported regarding the dermatologic system. Musculoskeletal: No signs and/or symptoms reported regarding the musculoskeletal system. 15:31 Reassessment: Patient appears in no apparent distress at this time. No changes from ld1 previously documented assessment. Patient and/or family updated on plan of care and expected duration. Pain level reassessed. Patient is alert, oriented x 3, equal unlabored respirations, skin warm/dry/pink. 16:30 Reassessment: Patient appears in no apparent distress at this time. No changes from jl7 previously documented assessment. Patient and/or family updated on plan of care and expected duration. Pain level reassessed. Patient is alert, oriented x 3, equal unlabored respirations, skin warm/dry/pink. pain rated 4/10 at this time Patient states feeling better. Vital Signs: 14:10 BP 187 / 86; Pulse 89; Resp 18; Temp 98.2(O); Pulse Ox 98% on R/A; Weight 60.33 kg; ap3 Height 4 ft. 11 in. ; Pain 10/10; 15:31 BP 153 / 76; Pulse 74; Resp 18; Pulse Ox 99% on R/A; ld1 16:30 Pain 4/10; jl7 14:10 Body Mass Index 26.86 (60.33 kg, 149.86 cm) ap3 14:10 Pain Scale: Adult ap3 16:30 Pain Scale: Adult jl7 ED Course: 13:59 Patient arrived in ED. al6 13:59 Checo Guerrero PA is PHCP. cp 13:59 Pancho Saldaña MD is Attending Physician. cp 14:13 Kait Melara, NARDA is Primary Nurse. ld1 14:16 Triage completed. ap3 14:18 C-collar applied. ap3 14:39 Radiology exam delayed due to lab results not completed at this time. (BUN/Creatinine) jc4 IV insertion attempt and/or patient not having appropriate IV at this time. 14:43 XRAY Femur LEFT In Process Unspecified. EDMS 14:43 XRAY Pelvis In Process Unspecified. EDMS 14:43 XRAY Chest (1 view) In Process Unspecified. EDMS 14:58 Missed attempt(s): 20 gauge in right antecubital area. ld1 15:31 Patient has correct armband on for positive identification. Placed in gown. Bed in low ld1 position. Call light in reach. Side rails up X2. budget specialist on. Pulse ox on. NIBP on. Door closed. Noise minimized. Warm blanket given. 15:31 No provider procedures requiring assistance completed. Inserted saline lock: 22 gauge ld1 in right hand, using aseptic technique. Blood collected. Flushed with 10 mL NS. 15:44 Chest Abdomen Pelvis W Cont In Process Unspecified. EDMS 15:44 Head C Spine Mpr Wo Con In Process Unspecified. EDMS 16:57 IV discontinued, intact, bleeding controlled, No redness/swelling at site. Pressure jl7 dressing applied. Administered Medications: 14:57 Drug: Ketorolac IVP 15 mg IVP once Route: IVP; Site: right antecubital; ld1 16:30 Follow up: Pain 4/10 Adult; Response: Pain is decreased jl7 16:40 Follow up: Response: No adverse reaction jl7 16:40 Not Given (Patient Refused): ns 0.9% 500 ml 500 ml IV at 1 bolus once; to be given as a jl7 bolus over 60 minutes 16:40 Drug: Lidoderm Topical Patch 5 % (700 mg/patch) 1 patches Topical once; leave on for 12 jl7 hours; cover most painful area; may cut into smaller pieces Route: Topical; Site: affected area; Medication: 15:31 VIS not applicable for this client. ld1 Outcome: 16:44 Discharge ordered by MD. cp 16:57 Discharged to home ambulatory, jl7 16:57 Condition: stable 16:57 Discharge instructions given to patient, Instructed on discharge instructions, follow up and referral plans. medication usage, Demonstrated understanding of instructions, follow-up care, medications, Prescriptions given X 2, 16:57 Patient left the ED. jl7 Signatures: Dispatcher [employer] EDFL Checo Guerrero PA PA cp Leal, Jahala RN RN jl7 Kylie Rowan RN RN esvin3 Kait Melara RN RN ld1 Tim Marc jc4 Beverley Reyes6
--- NOTE | 2024-12-09 16:45 | EDPHYS ---
Physician Documentation [facility] Name: Cindy Malin Age: 68 yrs Sex: Female : 1955 Arrival Date: 12/09/2024 Time: 13:56 Bed 12 Private MD: ED Physician Pancho Saldaña HPI: 12/09 14:15 This 68 yrs old Female presents to ER via Ambulatory with complaints of Fall Injury. cp 14:15 Details of fall: The patient fell from a height, approximately 4 feet off porch and cp onto grass landing onto back with LOC. 14:15 Onset: The symptoms/episode began/occurred 2 day(s) ago. Associated injuries: The cp patient sustained injury to the head, pain, neck injury, pain, upper back injury, pain, pelvis, painful injury, LEFT HIP, painful injury. Historical: - Allergies: 14:16 Codeine; ap3 14:16 Benadryl; ap3 14:16 Allergy Medicine; ap3 - Home Meds: 14:16 None [Active]; ap3 - PMHx: 14:16 Back pain; breast cancer; ap3 - PSHx: 14:16 hip replacement- Left; ap3 - Immunization history:: Client reports having NOT received the Covid vaccine. - Infectious Disease History:: Denies. - Social history:: Smoking status: Patient reports the use of cigarette tobacco products, smokes one-half pack cigarettes per day. ROS: 14:20 Constitutional: Negative for body aches, chills, fever, cp 14:20 Neck: Positive for pain with movement, pain at rest, cp 14:20 Back: Positive for pain at rest, pain with movement, 14:20 MS/extremity: Positive for pain, of the left groin area and left hip, 14:20 Eyes: Negative for injury, pain, redness, and discharge, cp 14:20 ENT: Negative for drainage from ear(s), ear pain, sore throat, difficulty swallowing, difficulty handling secretions, 14:20 Cardiovascular: Negative for palpitations, 14:20 Respiratory: Negative for cough, shortness of breath, wheezing, 14:20 Abdomen/GI: Negative for vomiting, diarrhea, constipation, 14:20 Neuro: Positive for headache, loss of consciousness, Negative for altered mental status, 14:20 All other systems are negative, Exam: 14:25 Head/Face: Normocephalic, atraumatic. cp 14:25 Constitutional: The patient appears in no acute distress, alert, awake, non-diaphoretic, non-toxic, well developed, well nourished, uncomfortable, 14:25 Eyes: Periorbital structures: appear normal, Conjunctiva: normal, no exudate, no injection, Sclera: no appreciated abnormality, Lids and lashes: appear normal, bilaterally, 14:25 ENT: External ear(s): are unremarkable, Nose: is normal, Mouth: Lips: moist, Oral cp mucosa: moist, Posterior pharynx: Airway: no evidence of obstruction, patent, Voice: is normal, 14:25 Neck: External neck: tenderness, that is moderate, of the left mid cervical area, left trapezius and left posterior aspect of neck, C-spine: C-collar placed in ED, vertebral tenderness, that is mild, appreciated at C5 and C6, ROM/movement: pain, that is mild, with any movement, limited range of motion, is not appreciated, nuchal rigidity, is not appreciated, 14:25 Chest/axilla: Inspection: normal, Palpation: crepitus, is not appreciated, tenderness, that is mild, of the anterior aspect of left upper chest, 14:25 Cardiovascular: Rate: normal, Rhythm: regular, 14:25 Respiratory: the patient does not display signs of respiratory distress, Respirations: normal, no use of accessory muscles, no retractions, labored breathing, is not present, Breath sounds: are clear throughout, no decreased breath sounds, no stridor, no wheezing, 14:25 Abdomen/GI: Inspection: abdomen appears normal, Palpation: abdomen is soft and non-tender, in all quadrants, 14:25 Back: pain, that is moderate, of the left scapular area and left subscapular area, ROM is normal, 14:25 Musculoskeletal/extremity: Extremities: noted in the left groin and left hip: pain, tenderness, There is no evidence of decreased ROM, deformity, ROM: limited passive range of motion due to pain, in the left hip, 14:25 Neuro: Orientation: to person, place \T\ time. Mentation: is normal, Motor: moves all fours, strength is normal, 15:20 ECG was reviewed by the Attending Physician. cp Vital Signs: 14:10 BP 187 / 86; Pulse 89; Resp 18; Temp 98.2(O); Pulse Ox 98% on R/A; Weight 60.33 kg; ap3 Height 4 ft. 11 in. ; Pain 10/10; 15:31 BP 153 / 76; Pulse 74; Resp 18; Pulse Ox 99% on R/A; ld1 16:30 Pain 4/10; jl7 14:10 Body Mass Index 26.86 (60.33 kg, 149.86 cm) ap3 14:10 Pain Scale: Adult ap3 16:30 Pain Scale: Adult jl7 MDM: 14:04 Medical Screening Exam initiated cp 14:30 Differential diagnosis: closed head injury, contusion, fracture, multiple trauma. 16:44 Data reviewed: vital signs, nurses notes, lab test result(s), EKG, radiologic studies, cp CT scan, plain films, and as a result, I will discharge patient. 16:44 I considered the following discharge prescriptions or medication management in the emergency department Medications were administered in the Emergency Department. See MAR. Independent interpretation of the following test(s) in the Emergency Department EKG: See my EKG interpretation above. Counseling: I had a detailed discussion with the patient and/or guardian regarding the historical points, exam findings, and any diagnostic results supporting the discharge/admit diagnosis, lab results, radiology results, to return to the emergency department if symptoms worsen or persist or if there are any questions or concerns that arise at home. Response to treatment: the patient's symptoms have mildly improved after treatment, and as a result, I will discharge patient. Special discussion: Based on the patient's history, exam and DX evaluation, there is no indication for emergent intervention or inpatient TX. It is understood by the patient/guardian that if the SXs persist or worsen they need to return immediately for re-evaluation. 12/09 14:12 Order name: Basic Metabolic Panel; Complete Time: 15:49 12/09 15:49 Interpretation: Normal except: CL 110; CRE 0.51. 12/09 14:12 Order name: CBC with Diff; Complete Time: 15:49 12/09 15:50 Interpretation: Normal except: RBC 4.90; RDW 17.4. 12/09 14:12 Order name: LFT's; Complete Time: 15:49 12/09 16:22 Interpretation: Normal except: ALK 126; IBILI, CALC 0.0. cp 12/09 14:12 Order name: Magnesium; Complete Time: 15:49 cp 12/09 14:12 Order name: Troponin HS; Complete Time: 15:49 cp 12/09 14:12 Order name: XRAY Femur LEFT; Complete Time: 14:59 cp 12/09 14:59 Interpretation: Reviewed. cp 12/09 14:13 Order name: XRAY Pelvis; Complete Time: 14:59 cp 12/09 14:59 Interpretation: Report reviewed. cp 12/09 14:13 Order name: XRAY Chest (1 view); Complete Time: 14:59 cp 12/09 14:25 Order name: Chest Abdomen Pelvis W Cont; Complete Time: 16:18 EDMS 12/09 16:22 Interpretation: Report reviewed. cp 12/09 14:26 Order name: Head C Spine Mpr Wo Con; Complete Time: 16:18 EDMS 12/09 16:23 Interpretation: Report reviewed. cp 12/09 14:12 Order name: EKG; Complete Time: 14:13 cp 12/09 14:12 Order name: Cardiac monitoring; Complete Time: 15:22 cp 12/09 14:12 Order name: EKG - Nurse/Tech; Complete Time: 15:22 cp 12/09 14:12 Order name: IV Saline Lock; Complete Time: 15:40 cp 12/09 14:12 Order name: Labs collected and sent; Complete Time: 14:57 cp 12/09 14:12 Order name: O2 Per Protocol; Complete Time: 14:14 cp 12/09 14:12 Order name: O2 Sat Monitoring; Complete Time: 14:14 cp EC:20 Rate is 77 beats/min. Rhythm is regular. NM interval is normal. QRS interval is normal. cp QT interval is normal. T waves are Inverted in lead aVR. Interpreted by me. Reviewed by me. Administered Medications: 14:57 Drug: Ketorolac IVP 15 mg IVP once Route: IVP; Site: right antecubital; ld1 16:30 Follow up: Pain 4/10 Adult; Response: Pain is decreased jl7 16:40 Follow up: Response: No adverse reaction jl7 16:40 Not Given (Patient Refused): ns 0.9% 500 ml 500 ml IV at 1 bolus once; to be given as a jl7 bolus over 60 minutes 16:40 Drug: Lidoderm Topical Patch 5 % (700 mg/patch) 1 patches Topical once; leave on for 12 jl7 hours; cover most painful area; may cut into smaller pieces Route: Topical; Site: affected area; Disposition: 19:52 Co-signature as Attending Physician, Pancho Saldaña MD I reviewed the patient's care rn provided by the Advanced Practice Provider and agree with the diagnosis and treatment plan. Disposition Summary: 12/09/24 16:44 Discharge Ordered Notes: Location: Home cp Problem: new cp Symptoms: have improved cp Condition: Stable cp Diagnosis - Fall (on) (from) other stairs and steps cp - Cervicalgia cp - Dorsalgia, unspecified cp - Pain in left hip cp Followup: cp - With: Private Physician - When: 2 - 3 days - Reason: Recheck today's complaints Discharge Instructions: - Discharge Summary Sheet cp - Acute Back Pain, Adult cp - How to Use Cold Therapy, [id number] cp - Hip Pain cp - Neck Exercises cp - Back Exercises cp Forms: - Medication Reconciliation Form cp - Antibiotic Education cp - Prescription Opioid Use cp - Patient Portal Instructions cp - Leadership Thank You Letter cp Prescriptions: - Anaprox DS 550 mg Oral Tablet - take 1 tablet ORAL route every 12 hours As needed; 20 tablet; Refills: 0, cp Product Selection Permitted - methocarbamol 750 mg Oral tablet - take 1 tablet ORAL route 3 times per day; 30 tablet; Refills: 0, Product cp Selection Permitted Signatures: Dispatcher [employer] EDPancho Miguel MD MD rn Page, Corey, PA PA cp Mariah Luo RN RN jl7 Kylie Rowan RN RN ap3 Kait Melara RN RN ld1 Prashant Parker Corrections: (The following items were deleted from the chart) 14:13 14:13 BASIC METABOLIC PANEL+C.LAB.BRZ ordered. EDMS EDMS 14:13 14:13 CBC+H.LAB.BRZ ordered. EDMS EDMS 14:13 14:13 HEPATIC FUNCTION+C.LAB.BRZ ordered. EDMS EDMS 14:13 14:13 MAGNESIUM+C.LAB.BRZ ordered. EDMS EDMS 14:13 14:13 PROTIME (+INR)+COAG.LAB.BRZ ordered. EDMS EDMS 14:13 14:13 Troponin High Sensitivity+C.LAB.BRZ ordered. EDMS EDMS 14:26 14:13 Head C Spine CAP W Con+CT.RAD.BRZ ordered. EDMS EDMS 16:40 15:50 Misc. Order ordered. ty jl7 16:42 12/08 14:25 Constitutional: The patient appears in no acute distress, alert, awake, cp non-diaphoretic, non-toxic, well developed, well nourished, uncomfortable, cp 12/09 16:42 12/08 14:25 Head/Face: Normocephalic, atraumatic. cp cp 12/09 16:42 12/08 14:25 Eyes: Periorbital structures: appear normal, Conjunctiva: normal, no cp exudate, no injection, Sclera: no appreciated abnormality, Lids and lashes: appear normal, bilaterally, cp
[2024-12-09 17:04] VITALS: TEMP 98.2
[2024-12-09 17:06] VITALS: BP 153/76; O2SAT 99
--- NOTE | 2024-12-12 11:27 | EKG ---
Test Date: 2024-12-09 Test Time: 15:14:23 Assembler Engine: CHERELLE MEASUREMENT RESULTS: Intervals: Rate: 77 MA: 164 QRSD: 78 QT: 408 QTc: 461 [place]: P: 72 MA: 164 QRS: 40 T: 74 INTERPRETIVE STATEMENTS: Normal sinus rhythm Normal ECG Compared to ECG 08/29/2024 17:10:36 No significant changes Electronically Signed On 12-12-24 11:22:01 CDT by Alex Mauro
== END 2024-12-09 16:57 | disposition home or self-care (01) ==
LOC: ER 13:56
DX: M54.2 Cervicalgia (principal); M54.9 Dorsalgia, unspecified; M25.552 Pain in left hip; W10.8XXA Fall (on) (from) other stairs and steps, initial encounter; Z96.642 Presence of left artificial hip joint; F17.210 Nicotine dependence, cigarettes, uncomplicated
CPT/HCPCS: 85025; 80048; 83735; 80076; 84484; 70450; 72125; 71260; 74177; 71045; 72170; 73552; 96374; 99285; Q9967; J2003; J7040; 93005

== ENCOUNTER 2025-06-26 16:16 | Inpatient (IN) | payer OTHER ==
--- OUTSIDE RECORDS SUMMARY | 2025-06-26 16:47 | XMS REPORT | Continuity of Care Document ---
Author Name Unknown Address [address] [facility] [address]. [address] [place] [address] Organization [facility] [place] Address [address] [facility]. [address] [place] [address] Care Team Providers Care Doctor Osteopathic Name Role Phone Pamela Winslow Primary Care Physician [phone] DES HODGES Attending Clinician Unavailable DES HODGES Attending Clinician Unavailable KAREN SOTOMAYOR Attending Clinician Nathalie vailable Karen Sotomayor DNP Attending Clinician Yesy Lin MD Attending Clinician + Doctor Unassigned, [place] Attending Clinician U Karen Morales DNP Attending Clinician Doctor Unassigned, [place] Attending Clinician U navailable RENETTA OLIVAS Attending Clinician Unavailable Renetta Olivas MD Attending Clinician [phone] MARY KAY HARRISON Attending Clinician Unavailable Mary Kay Harrison MD Attending Clinician [phone] Radiology Attending Clinician Unavailable RADIOLOGY Attending Clinician Unavailable Babita Marrufo DO Attending Clinician [phone] Shila Hale MD Attending Clinician [phone] SHILA HALE Attending Clinician Unavailable LYNN DE PAZ Attending Clinician UnavailLynn Queen NP Attending Clinician [phone] Mehnaz Stovall MD Attending Clinician [phone] Bentley Rebollar MD Attending Clinician [phone] DES HODGES Admitting Clinician Unavailable KAREN SOTOMAYOR Admitting Clinician Nathalie RENETTA Gonsalez Admitting Clinician Unavailable Shila Hale MD Admitting Clinician [phone] LYNN DE PAZ Admitting Clinician Unavailabl e Payers Payer Name Policy Type Policy Number Effective Date Expirati on Date Source [facility] STAR PLUS [id number] 2019 00:00:00 [facility] DUAL COMP HMO-POS D SNP [id number] 2022 00:00:00 Problems Condition Name Condition Details Condition Category Status Onset Date Resolution Date Last Treatment Date Treating Clinician Comments Source At risk for falls At risk for falls Disease Active 2022-09 00:00: 00 [facility] Unspecifie d abnormalit ies of gait and mobility Unspecifie d abnormalit ies of gait and mobility Disease Active 2022-09 00:00: 00 [facility] SI (sacroilia c) joint dysfunctio n SI (sacroilia c) joint dysfunctio n Disease Active 09-26 00:00: 00 Overview: Formattin g of this note might be different from the original. Added automatic ally from request for surgery [id number] [facility] Cervical spondylosi s with radiculopa thy Cervical spondylosi s with radiculopa thy Disease Active 02-08 00:00: 00 Overview: Formattin g of this note might be different from the original. Added automatic ally from request for surgery [id number] [facility] Anxiety Anxiety Disease Active 10-22 00:00: 00 [facility] Chronic fatigue Chronic fatigue Disease Active 10-22 00:00: 00 [facility] History of breast cancer History of breast cancer Disease Active 8 00:00: 00 [facility] Cervical radiculopa thy due to osteoarthr itis of spine Cervical radiculopa thy due to osteoarthr itis of spine Disease Active 03-26 00:00: 00 Overview: Formattin g of this note might be different from the original. Added automatic ally from request for surgery [id number] [facility] Cervical radiculopa thy Cervical radiculopa thy Disease Active 12-11 00:00: 00 Overview: Formattin g of this note might be different from the original. Added automatic ally from request for surgery [id number] [facility] S/P total hip arthroplas ty S/P total hip arthroplas ty Disease Active 03-31 00:00: 00 [facility] Left hip pain Left hip pain Disease Active 02-26 00:00: 00 Overview: Formattin g of this note might be different from the original. Added automatic ally from request for surgery [id number] [facility] Hip pain, acute, left Hip pain, acute, left Disease Active 2015-09 00:00: 00 [facility] S/P orthopedic surgery, follow-up exam S/P orthopedic surgery, follow-up exam Disease Active 2015-09 00:00: 00 [facility] Greater trochanter ic bursitis of left hip Greater trochanter ic bursitis of left hip Disease Active 2015-09 00:00: 00 [facility] Cataracts, both eyes Cataracts, both eyes Disease Active 12-12 00:00: 00 [facility] Dry eye OU Dry eye OU Disease Active 12-12 00:00: 00 [facility] Lumbosacra l spondylosi s without myelopathy Lumbosacra l spondylosi s without myelopathy Disease Active 2013-09 00:00: 00 [facility] Sacroiliac joint dysfunctio n of both sides Sacroiliac joint dysfunctio n of both sides Disease Active 2013-09 00:00: 00 [facility] Myofacial muscle pain Myofacial muscle pain Disease Active 2013-09 00:00: 00 [facility] Acquired absence of breast and nipple Acquired absence of breast and nipple Disease Active 10-19 00:00: 00 [facility] Breast cancer Breast cancer Disease Active 09-28 00:00: 00 [facility] Fracture, cause unspecifie d(E887) Fracture, cause unspecifie d(E887) Disease Active 11-05 00:00: 00 Overview: Formattin g of this note might be different from the original. Left leg and back [facility] Allergies, Adverse Reactions, Alerts Allergy Name Allergy Type Status Severity Reaction(s) Onset Date Inactive Date Treating Clinician Comments Source Codeine (Not Checked) Propensi ty to adverse reaction to drug Active 2023-09 00:00: 00 [facility] Morphine Propensi ty to adverse reaction s Active Itching 2010-09 00:00: 00 With morphine pump [facility] MORPHINE DRUG INGREDI Active ITCHING 2010-09 00:00: 00 [facility] Codeine Propensi ty to adverse reaction s Active Rash 2008-09 00:00: 00 [facility] CODEINE DRUG INGREDI Active Rash 2008-09 00:00: 00 [facility] Social History Social Habit Start Date Stop Date Quantity Comments Source ASSERTION Not [facility] History SDOH Alcohol Frequency [facility] History SDOH Alcohol Std Drinks [facility] History SDOH Alcohol Binge [facility] Alcoholic beverage intake 2025-04-29 00:00:00 2025-04-29 00:00:00 Current drinker of alcohol (finding) [facility] Tobacco use and exposure 2025-01-19 00:00:00 2025-01-19 00:00:00 Smokeless tobacco non-user [facility] Exposure to SARS-CoV-2 (event) 2022-04-15 00:00:00 2022-04-25 16:01:00 Not sure [facility] Alcohol intake 2021-10-19 00:00:00 2021-10-19 00:00:00 Current drinker of alcohol (finding) [facility] History of Social function 2020-04-18 00:00:00 2020-04-18 00:00:00 [facility] History of tobacco use 1932-09-21 00:00:00 2012-09-21 00:00:00 Cigarette Smoker [facility] Tobacco Comment 2009-10-22 00:00:00 2009-10-22 00:00:00 1 pack weekly [facility] Alcohol Comment 2009-10-22 00:00:00 2009-10-22 00:00:00 only once monthly [facility] Sex assigned at 1955 00:00:00 1955 00:00:00 [facility] Smoking Status Start Date Stop Date Source Ex-smoker 2025-01-19 00:00:00 2025-01-19 00:00:00 [facility] Smokes tobacco daily 2009-10-22 00:00:00 [facility] Medications Ordered Medication Name Filled Medication Name Start Date Stop Date Current Medication? Ordering Clinician Indication Dosage Frequency Signature (SIG) Comments Components Source methylPREDN ISolone (MEDROL, ZENIA,) 4 mg tablets 01-30 00:00: 00 02-05 04:59 :00 No [id number] Take by mouth SEE-INSTRU CTIONS for 5 days. follow package directions [facility] ibuprofen (MOTRIN ORAL) 01-20 02:06: 26 Yes 400mg Take 400 mg by mouth. [facility] Cholecalcif alfred, Vitamin D3, (VITAMIN D3) 5,000 unit tablet 01-20 02:06: 26 Yes Take by mouth. [facility] Cyanocobala min (VITAMIN B-12) 1,000 mcg tablet 01-20 02:06: 26 Yes Take by mouth. [facility] triamcinolo ne acetonide (KENALOG) injection 40 mg 01-19 21:55: 00 01-19 21:51 :00 No [id number] 40mg 40 mg, Intramuscu lar, ONCE, 1 dose, On Thu01/19/25 at 1700, Routine [facility] methocarbam oL 500 mg tablet 01-19 00:00: 00 04-20 04:59 :00 No [id number] 07 500mg Take 1 tablet by mouth every evening for 90 days. [facility] meloxicam 15 mg tablet 01-19 00:00: 00 02-19 04:59 :00 No [id number] 07 15mg Take 1 tablet by mouth in the morning for 30 days. Please stop all other anti-infla mmatory medication s while taking meloxicam (mobic) [facility] albuterol sulfate HFA 90 mcg/actuati on aerosol [...] 01-11 14:10: 00 01-11 14:07 :00 No [id number] 40mg 40 mg, Intramuscu lar, ONCE, 1 dose, On Thu01/12/24 at 0915, Routine [facility] alendronate 70 mg tablet 01-11 00:00: 00 04-07 04:59 :00 No [id number] 70mg Take 1 tablet by mouth weekly. [facility] gabapentin 300 mg capsule 01-11 00:00: 00 04-12 04:59 :00 No [id number] 300mg Take 1 capsule by mouth in the morning for 90 days. [facility] methocarbam oL 500 mg tablet 01-11 00:00: 00 04-12 04:59 :00 No [id number] 500mg Take 1 tablet by mouth at bedtime for 90 days. [facility] INHALE 1-2 PUFFS EVERY 4-6 HOURS NEEDED AND DIRECTED. 10-13 00:00: 00 Yes [id number] [facility] TAKE 1 TABLET DAILY. 10-13 00:00: 00 12-09 00:00 :00 No 20 Vu Davis TAKE 2 TABLETS ON DAY 1 THEN TAKE 1 TABLET A DAY FOR 4 DAYS. 10-13 00:00: 00 12-09 00:00 :00 No 250 Vu Davis TAKE 5 ML EVERY 4 TO 6 HOURS NEEDED. 10-13 00:00: 00 12-09 00:00 :00 No [id number] [facility] AMOXICILLIN /CLAVULANAT E POTASSIUM 875-125 MG TABS 2022-09 00:00: 00 Yes Vu Davis TAKE 5 ML EVERY 4 TO 6 HOURS NEEDED. 2022-09 00:00: 00 12-09 00:00 :00 No [id number] [facility] TAKE 2 TABLETS ON DAY 1 THEN TAKE 1 TABLET A DAY FOR 4 DAYS. 2022-09 00:00: 00 12-09 00:00 :00 No 250 Vu Davis TAKE 1 TABLET DAILY. 2022-09 00:00: 00 12-09 00:00 :00 No 20 Vu Davis TAKE 1 TABLET 3 TIMES DAILY. 2023-1 2-09 00:00: 00 12-09 00:00 :00 No 1 Vu Davis TAKE 1 TABLET 3 TIMES DAILY. 2022-09 2- 00:00: 00 12-09 00:00 :00 No 1 Vu Davis TAKE 2 TABLETS ON DAY 1 THEN TAKE 1 TABLET A DAY FOR 4 DAYS. 2022-09 2- 00:00: 00 12-09 00:00 :00 No 250 Vu Davis TAKE 5 ML EVERY 4 TO 6 HOURS NEEDED. 2022-09 2 00:00: 00 12-09 00:00 :00 No [id number] Vu [facility] triamcinolo ne acetonide (KENALOG) injection 40 mg 2022-09 17:30: 00 08-04 17:30 :00 No [id number] 40mg [facility] VALACYCLOVI R HYDROCHLORI DE 500 MG TABS 2022-09 00:00: 00 Yes Vu Davis valACYclovi r 500 mg tablet 2022-09 00:00: 00 08-10 05:59 :00 No [id number] 500mg Take 1 tablet by mouth in the morning and 1 tablet in the evening. Do all this for 5 days. [facility] LORazepam (ATIVAN) tablet 1 mg 2022-09 16:15: 00 07-27 15:31 :00 No [id number] 1mg 1 mg, Oral, ONCE, 1 dose, On Thu07/27/23 at 1015, Routine [facility] METHYLPREDN ISOLONE DOSE PACK 4 MG TBPK 2022-09 00:00: 00 Yes Vu Davis methylPREDN ISolone (MEDROL, ZENIA,) 4 mg tablets 2022-09 00:00: 00 07-17 04:59 :00 No [id number] Take by mouth SEE-INSTRU CTIONS for 6 days. follow package directions [facility] METHOCARBAM OL 500 MG TABS 2022-09 0 00:00: 00 Yes [facility] GABAPENTIN 300 MG 2022-09 0- 00:00: 00 Yes [facility] gabapentin 300 mg capsule 2022-09 00:00: 00 10-07 05:59 :00 No [id number] 300mg Take 1 capsule by mouth in the morning for 90 days. [facility] methocarbam oL (ROBAXIN) 500 mg tablet 2022-09 00:00: 00 10-07 05:59 :00 No [id number] 500mg Take 1 tablet by mouth at bedtime for 90 days. [facility] TAKE 3 TABLETS BY MOUTH ONCE [...] Yes [facility] ALPRAZOLAM 1 MG TABS 1- 00:00: 00 Yes [facility] ondansetron (ZOFRAN (PF)) injection 4 mg 04-25 23:15: 00 04-25 23:12 :00 No 4mg 4 mg, Slow IV Push, ONCE, 1 dose, On Thu04/25/22 at 1815, MAIKOL [facility] ketorolac (TORADOL) injection 30 mg 10-15 12:30: 00 10-15 11:24 :00 No 30mg 30 mg, Slow IV Push, ONCE, 1 dose, On Thu10/15/21 at 0630, MAIKOL [facility] FENTanyl PF (SUBLIMAZE (PF)) injection 50 mcg 10-15 11:45: 00 10-15 10:51 :00 No 50ug 50 mcg, Slow IV Push, ONCE, 1 dose, On Thu10/15/21 at 0545, Routine [facility] diazePAM (VALIUM) injection 5 mg 10-15 11:45: 00 10-15 10:52 :00 No 5mg 5 mg, Slow IV Push, ONCE, 1 dose, On Thu10/15/21 at 0545, STAT [facility] gabapentin 300 mg capsule 10-15 00:00: 00 07-08 00:00 :00 No [id number] 300mg Take 1 capsule by mouth 3 (three) times daily. [facility] methocarbam oL (ROBAXIN) 500 mg tablet 10-15 00:00: 00 07-08 00:00 :00 No [id number] 500mg Take 1 tablet by mouth every 6 (six) hours as needed for Pain (scale 7-10) (MUSCLE SPASM). [facility] alendronate 70 mg tablet 2020-09 00:00: 00 01-11 00:00 :00 No 70mg Take 1 tablet by mouth weekly. [facility] gabapentin 300 mg capsule 2020-09 00:00: 00 09-01 05:59 :00 No [id number] 300mg Take 1 capsule by mouth 2 (two) times daily for 30 days. [facility] ibuprofen (MOTRIN ORAL) 10-19 13:38: 34 Yes 400mg Take 400 mg by mouth. [facility] Cholecalcif alfred, Vitamin D3, (VITAMIN D3) 5,000 unit tablet 10-19 13:38: 34 Yes Take by mouth. [facility] Cyanocobala min (VITAMIN B-12) 1,000 mcg tablet 2-05 13:38: 34 Yes Take by mouth. [facility] meloxicam 7.5 mg tablet 110 00:00: 00 Yes [id number] 7.5mg Take 1 tablet by mouth 2 (two) times daily as needed (Pain). [facility] zolpidem 10 mg tablet 2018-09 00:00: 00 Yes [id number] 10mg Take 1 tablet by mouth at bedtime. [facility] diazePAM 2 mg tablet 2018-09 0 00:00: 00 Yes [id number] 2mg Take 1 tablet by mouth 2 (two) times daily as needed for Anxiety. [facility] cyclobenzap rine 7.5 mg tablet 04-06 00:00: 00 01-11 00:00 :00 No [facility] albuterol (PROAIR HFA) 90 mcg/actuati on inhaler 01-11 00:00: 00 Yes [id number] 2{puff} Inhale 2 Puffs every 4 (four) hours as needed for Wheezing or Shortness of Breath. [facility] fluticasone 50 mcg/actuati on nasal spray 06-04 00:00: 00 Yes [id number] 1{spray } Use 1 [place] in each nostril 2 (two) times daily. [facility] Immunizations Ordered Immunization Name Filled Immunization Name Date Status Comments Source SHINGRIX VACCINE SHINGRIX VACCINE 2021-03-15 00:00:00 Completed [facility] Influenza Virus Vaccine Quad IM 3+ YRS 2018-08-18 00:00:00 Completed [facility] Influenza Virus Vaccine Quad IM 3+ YRS 2018-08-18 00:00:00 Completed [facility] Influenza Virus Vaccine Quad IM 3+ YRS 2018-08-18 00:00:00 Completed [facility] Influenza Virus Vaccine Quad IM 3+ YRS 2018-08-18 00:00:00 Completed [facility] Influenza Virus Vaccine Quad IM 3+ YRS 2018-08-18 00:00:00 Completed [facility] Influenza Virus Vaccine Quad IM 3+ YRS Unknown Completed [facility] Influenza Virus Vaccine Quad IM 3+ YRS Unknown Completed [facility] Influenza Virus Vaccine Quad IM 3+ YRS Unknown Completed [facility] Influenza Virus Vaccine Quad IM 3+ YRS Unknown Completed [facility] Influenza Virus Vaccine Quad IM 3+ YRS Unknown Completed [facility] Vital Signs Vital Name Observation Time Observation Value Comments S ource Oxygen saturation in Arterial blood by Pulse oximetry 2025-04-29 08:01:00 99 /min [facility] Systolic blood pressure 2025-04-29 07:44:54 122 mm[Hg] [facility] Diastolic blood pressure 2025-04-29 07:44:54 72 mm[Hg] [facility] Heart rate 2025-04-29 07:44:54 80 /min [facility] Body temperature 2025-04-29 07:44:54 36.72 Martha [facility] Respiratory rate 2025-04-29 07:44:54 18 /min [facility] Body height 2025-04-29 05:44:00 144.8 cm [facility] Body weight 2025-04-29 05:44:00 58.514 kg [facility] BMI 2025-04-29 05:44:00 27.92 kg/m2 [facility] Systolic blood pressure 2025-01-19 21:21:00 148 mm[Hg] [facility] Diastolic blood pressure 2025-01-19 21:21:00 87 mm[Hg] [facility] Heart rate 2025-01-19 21:14:00 88 /min [facility] Body temperature 2025-01-19 21:14:00 36.56 Martha [facility] Respiratory rate 2025-01-19 21:14:00 18 /min [facility] Body height 2025-01-19 21:14:00 147.3 cm [facility] Body weight 2025-01-19 21:14:00 57.652 kg [facility] BMI 2025-01-19 21:14:00 26.56 kg/m2 [facility] Oxygen saturation in Arterial blood by Pulse oximetry 2025-01-19 21:14:00 95 /min [facility] Systolic blood pressure 2024-01-12 13:14:00 125 mm[Hg] [facility] Diastolic blood pressure 2024-01-12 13:14:00 66 mm[Hg] [facility] Heart rate 2024-01-12 13:14:00 87 /min [facility] Body temperature 2024-01-12 13:14:00 36.22 Martha [facility] Body height 2024-01-12 13:14:00 144.8 cm [facility] Body weight 2024-01-12 13:14:00 54.885 kg [facility] BMI 2024-01-12 13:14:00 26.18 kg/m2 [facility] Systolic blood pressure 2023-08-04 17:12:00 159 mm[Hg] [facility] Diastolic blood pressure 2023-08-04 17:12:00 72 mm[Hg] [facility] Heart rate 2023-08-04 17:12:00 93 /min [facility] Body temperature 2023-08-04 17:12:00 36 Martha [facility] Body height 2023-08-04 17:12:00 144.8 cm [facility] Body weight 2023-08-04 17:12:00 52.164 kg [facility] BMI 2023-08-04 17:12:00 24.89 kg/m2 [facility] Systolic blood pressure 2023-07-27 15:30:00 148 mm[Hg] [facility] Diastolic blood pressure 2023-07-27 15:30:00 81 mm[Hg] [facility] Heart rate 2023-07-27 15:30:00 95 /min [facility] Respiratory rate 2023-07-27 15:30:00 18 /min [facility] Oxygen saturation in Arterial blood by Pulse oximetry 2023-07-27 15:30:00 93 /min [facility] Diastolic blood pressure 2023-07-08 21:56:00 96 mm[Hg] [facility] Heart rate 2023-07-08 21:56:00 106 /min [facility] Body temperature 2023-07-08 21:56:00 36.94 Martha [facility] Respiratory rate 2023-07-08 21:56:00 16 /min [facility] Body height 2023-07-08 21:56:00 144.8 cm [facility] Body weight 2023-07-08 21:56:00 53.071 kg [facility] BMI 2023-07-08 21:56:00 25.32 kg/m2 [facility] Oxygen saturation in Arterial blood by Pulse oximetry 2023-07-08 21:56:00 92 /min [facility] Systolic blood pressure 2023-07-08 21:56:00 148 mm[Hg] [facility] Systolic blood pressure 2022-04-26 00:30:00 130 mm[Hg] [facility] Diastolic blood pressure 2022-04-26 00:30:00 78 mm[Hg] [facility] Heart rate 2022-04-26 00:30:00 98 /min [facility] Respiratory rate 2022-04-26 00:30:00 18 /min [facility] Oxygen saturation in Arterial blood by Pulse oximetry 2022-04-26 00:30:00 97 /min [facility] Body temperature 2022-04-25 23:30:00 36 Martha [facility] Body height 2022-04-25 21:03:00 149.9 cm [facility] Body weight 2022-04-25 21:03:00 54.432 kg [facility] BMI 2022-04-25 21:03:00 24.24 kg/m2 [facility] Systolic blood pressure 2021-10-15 10:24:00 153 mm[Hg] [facility] Diastolic blood pressure 2021-10-15 10:24:00 86 mm[Hg] [facility] Heart rate 2021-10-15 10:24:00 115 /[facility] Body temperature 2021-10-15 10:24:00 35.94 Martha [facility] Respiratory rate 2021-10-15 10:24:00 20 /min [facility] Body height 2021-10-15 10:24:00 147.3 cm [facility] Body weight 2021-10-15 10:24:00 49.896 kg [facility] BMI 2021-10-15 10:24:00 22.99 kg/m2 [facility] Oxygen saturation in Arterial blood by Pulse oximetry 2021-10-15 10:24:00 92 /min [place] [facility] BP Systolic 2024-08-31 10:19:00 Step hen F Ryan BP Diastolic 2024-08-31 10:19:00 Justus phen F Ryan Weight Measured 2024-08-31 10:19:00 135.00 pounds Vu Davis Height Measured 2024-08-31 10:19:00 60.00 inches [facility] Body Temperature 2024-08-31 10:19:00 98.30 degrees [facility] Heart Rate 2024-08-31 10:19:00 63.00 /min Lisa [...] Weight Measured 2023-08-17 16:32:00 112.20 pounds Vu F Ryan Height Measured 2023-08-17 16:32:00 60.00 inches Vu F Ryan Body Temperature 2023-08-17 16:32:00 98.30 degrees Vu F Ryan Heart Rate 2023-08-17 16:32:00 97.00 /min Lisa bettina Frantz Davis Respiratory Rate 2023-08-17 16:32:00 18.00 /min Vu F Ryan Procedures Procedure Date / Time Performed Performing Clinician Source NC SIMPLE REPAIR SCALP/NECK/AX/GENIT/TRUN K 2.5CM/< 2025-04-29 07:11:24 Des Hodges [facility] MR CERVICAL SPINE WO CONTRAST 2023-07-27 16:58:44 Karen Sotomayor [facility] ASSIGNMENT OF BENEFITS 2023-07-08 21:37:50 Docto r Unassigned, [place] [facility] AUTHORIZATION FOR RELEASE OF PHI 2022-05-21 05:01:00 Doctor Unassigned, [place] [facility] CT CERVICAL SPINE WO CONTRAST 2022-04-26 00:00:00 Renetta Olivas [facility] CT LUMBAR SPINE WO CONTRAST 2022-04-26 00:00:00 Renetta Olivas [facility] CT THORACIC SPINE WO CONTRAST 2022-04-26 00:00:00 Renetta Olivas [facility] HIP, 2 VIEWS, UNILATERAL 2017-03-31 16:10:00 Leslee Brooks [facility] HOSPITAL ADMISSION 2017-03-31 05:01:00 Doctor Un assigned, [place] [facility] DEXA AXIAL (HIP AND SPINE) 2012-11-03 14:17:00 Yesy Lin [facility] MISC TEST, FROZEN 2012-09-28 17:09:00 Yesy Lin [facility] BREAST ULTRASOUND LIMITED 2012-09-28 16:44:00 Yesy Lin [facility] DIGITAL DIAGNOSTIC MAMMOGRAM, UNILATERAL 2012-09-28 16:11:00 Yesy Lin [facility] Encounters Start Date/Time End Date/Time Encounter Type Admission Type Attending Clinicians Care Facility Care Department Encounter ID Source 2021-07-14 07:52:30 Emergency [facility] [id number] [facility] 2025-04-29 00:39:00 2025-04-29 03:05:00 Emergency X DES HODGES PHILLIP [facility] ERT [id number] [facility] 2025-02-17 18:03:54 2025-02-17 23:59:00 Hospital Encounter R KAREN NOE [facility] [id number] [facility] 2025-01-19 16:10:00 2025-01-19 23:59:00 Outpatient R KAREN NOE [facility] [id number] [facility] 2025-01-19 16:10:00 2025-01-19 23:59:00 [facility] 1.2.840.114 350.1.13.10 4.2.7.2.686 [id number] [facility] 2025-01-19 16:40:00 2025-01-19 17:00:00 Office Visit Norberto abbott [facility] 1.2.840.114 350.1.13.10 4.2.7.2.686 [id number] [facility] 2012-09-28 00:00:00 2024-10-29 04:57:00 Orders Only Bob Linnigelerna Marti [facility] 1.2.840.114 350.1.13.10 4.2.7.2.686 [id number] [facility] 2012-11-03 00:00:00 2024-10-29 04:52:46 Orders Only Riley Warderna Marti [facility] 1.2.840.114 350.1.13.10 4.2.7.2.686 [id number] [facility] 2015-03-15 00:00:00 2024-10-29 04:27:36 Orders Only Doctor Unassigned, [place] Doctor Unassigned, [place] [facility] 1.2.840.114 350.1.13.10 4.2.7.2.686 [id number] [facility] 2017-03-31 00:00:00 2024-10-29 03:43:26 Orders Only Doctor Unassigned, [place] Doctor Unassigned, [place] [facility] 1.2.840.114 350.1.13.10 4.2.7.2.686 [id number] [facility] 2017-03-31 00:00:00 2024-10-29 03:43:25 Orders Only Doctor Unassigned, [place] Doctor Unassigned, [place] [facility] 1.2.840.114 350.1.13.10 4.2.7.2.686 [id number] [facility] 2024-08-31 00:00:00 2024-08-31 00:00:00 Outpatient Visit SFA [id number] Vu Davis 2024-07-20 00:00:00 2024-07-20 00:00:00 Outpatient Visit SFA [id number] Vu Davis 2024-07-06 11:27:27 2024-07-06 11:27:27 Outpatient SFA SFA [id number] Vu Davis 2024-07-06 00:00:00 2024-07-06 00:00:00 Outpatient Visit SFA [id number] Vu Davis 2024-01-12 08:40:00 2024-01-12 09:13:45 Outpatient R KAREN NOE [facility] [id number] [facility] 2024-01-12 08:40:00 2024-01-12 09:13:45 Office Visit NyaTuan elizabeth [facility] 1.2.840.114 350.1.13.10 4.2.7.2.686 [id number] [facility] 2023-10-13 14:39:40 2023-10-13 14:39:40 Outpatient SFA SFA [id number] Vu Davis 2023-08-21 18:03:38 2023-08-21 18:03:38 Outpatient SFA SFA [id number] Vu Davis 2023-08-17 16:23:37 2023-08-17 16:23:37 Outpatient SFA SFA [id number] Vu Davis 2023-08-04 11:40:00 2023-08-04 11:40:00 Office Visit NyaTuan elizabeth [facility] 1..840.114 350.1.13.10 4.2.7.2.686 [id number] [facility] 2023-08-04 11:40:00 2023-08-04 11:27:14 Outpatient R [facility]AT[facility]AN [facility] [id number] [facility] 2023-07-28 11:40:00 2023-07-28 11:40:00 Outpatient R ORXYARIANNA KAREN ABBOTT [facility] [id number] [facility] 2023-07-27 10:30:00 2023-07-27 23:59:00 Outpatient R [facility] [id number] [facility] 2023-07-27 08:49:58 2023-07-27 23:59:00 [facility] 1..840.114 350.1.13.10 4.2.7.2.686 [id number] [facility] 2023-07-08 16:40:00 2023-07-08 17:03:05 Outpatient R KAREN NOE [facility] [id number] [facility] 2023-07-08 16:40:00 2023-07-08 17:03:05 Office Visit Norberto abbott [facility] 1.2840.114 350.1.13.10 4.2.7.2.686 [id number] [facility] 2023-07-08 00:00:00 2023-07-08 00:00:00 Orders Only Doctor Unassigned, [place] [facility] 1.2840.114 350.1.13.10 4.2.7.2.686 [id number] [facility] 2023-05-21 16:40:00 2023-05-21 16:40:00 Outpatient R NORBERTO ABBOTT [facility] [id number] [facility] 2022-05-21 00:00:00 2022-05-21 00:00:00 Orders Only Doctor Unassigned, [place] [facility] 1.2840.114 350.1.13.10 4.2.7.2.686 [id number] [facility] 2022-04-25 16:05:00 2022-04-25 20:41:00 Emergency X RENETTA OLIVAS [facility] ERT [id number] [facility] 2022-04-25 16:05:00 2022-04-25 20:41:00 Emergency Renetta Olivas [facility] 1.2840.114 350.1.13.10 4.2.7.2.686 [id number] [facility] 2021-10-15 04:26:00 2021-10-15 05:53:00 Emergency X MARY KAY HARRISON [facility] ERT [id number] [facility] 2021-10-15 04:26:00 2021-10-15 05:53:00 Emergency Mary Kay Harrison [facility] 1.2.840.114 350.1.13.10 4.2.7.2.686 [id number] [facility] 2021-08-19 00:00:00 2021-08-19 00:00:00 Telephone Roxy-Tuan abbott [facility] 1.2.840.114 350.1.13.10 4.2.7.2.686 [id number] [facility] 2021-08-16 13:09:18 2021-08-16 23:59:00 Outpatient R NORBERTO ABBOTT [facility] [id number] [facility] 2021-08-16 13:09:18 2021-08-16 23:59:00 Hospital Encounter RoxyTuan abbott [facility] [place] [facility] 1.2.840.114 350.1.13.10 4.2.7.2.686 [id number] [facility] 2021-08-16 13:09:18 2021-08-16 23:59:00 Outpatient R NORBERTO ABBOTT [facility] [id number] [facility] 2021-08-01 10:40:00 2021-08-01 10:49:20 Outpatient R NORBERTO ABBOTT [facility] [id number] [facility] 2021-08-01 10:30:15 2021-08-01 10:49:20 Office Visit Roxy-Tuan abbott [facility] 1.2.840.114 350.1.13.10 4.2.7.2.686 [id number] [facility] 2021-08-01 00:00:00 2021-08-01 00:00:00 Orders Only Doctor Unassigned, [place] [facility] 1.2.840.114 350.1.13.10 4.2.7.2.686 [id number] [facility] 2021-04-18 15:08:12 2021-04-18 23:59:00 Hospital Encounter Formerly [facility] 1.2.840.114 350.1.13.10 4.2.7.2.686 [id number] [facility] 2021-04-18 14:38:07 2021-04-18 15:39:44 Office Visit Formerly [facility] 1.2.840.114 350.1.13.10 4.2.7.2.686 [id number] [facility] 2021-04-18 15:06:23 2021-04-18 15:07:00 Hospital Encounter Formerly [facility] [place] [facility] 1.2.840.114 350.1.13.10 4.2.7.2.686 [id number] [facility] 2021-04-18 14:15:00 2021-04-18 14:15:[address] [facility] [id number] [facility] 2021-04-09 16:03:59 2021-04-09 23:59:00 Hospital Encounter [facility] 1.2.840.114 350.1.13.10 4.2.7.2.686 [id number] [facility] 2021-04-09 00:00:00 2021-04-09 00:00:00 Outpatient R RADIOLOGY [facility] [id number] [facility] 2021-03-18 09:00:00 2021-03-18 09:00:00 Outpatient R ROXYYEN EKATERINASKYLARKAREN [facility] [id number] [facility] 2021-03-05 10:40:00 2021-03-05 10:40:00 Outpatient R ROXY-KU VANOSCARKAREN [facility] [id number] [facility] 2020-12-11 13:19:06 2020-12-11 23:59:00 Hospital Encounter RoxyTuan abbott [facility] 1..840.114 350.1.13.10 4.2.7.2.686 [id number] [facility] 2020-12-11 00:00:00 2020-12-11 00:00:00 [facility] [id number] [facility] 2020-12-04 11:41:00 2020-12-04 12:46:00 Emergency Babita Marrufo [facility] 1..840.114 350.1.13.10 4.2.7.2.686 [id number] [facility] 2020-11-22 00:00:00 2020-11-22 00:00:00 Telephone RoxyTuan abbott [facility] 1..840.114 350.1.13.10 4.2.7.2.686 [id number] [facility] 2020-07-26 10:45:33 2020-07-26 16:27:04 Office Visit RoxyTuan abbott [facility] 1.2.840.114 350.1.13.10 4.2.7.2.686 [id number] [facility] 2020-07-26 10:45:00 2020-07-26 10:45:00 Outpatient R KAREN NOE [facility] [id number] [facility] 2020-07-26 00:00:00 2020-07-26 00:00:00 Orders Only Doctor Unassigned, [place] [facility] 1.2.840.114 350.1.13.10 4.2.7.2.686 [id number] [facility] 2020-03-28 19:24:00 2020-03-28 23:59:00 Hospital Encounter Radiology [facility] 1.2.840.114 350.1.13.10 4.2.7.2.686 [id number] [facility] 2020-03-28 19:24:00 2020-03-28 23:59:00 Hospital Encounter Radiology [facility] 1.2.840.114 350.1.13.10 4.2.7.2.686 [id number] 2020-03-28 19:24:09 2020-03-28 19:24:09 Outpatient R RADIOLOGY [facility] [id number] [facility] 2019-12-20 08:48:31 2020-01-23 15:03:17 Telemedici ne Visit Shila Hale [facility] 1.2.840.114 350.1.13.10 4.2.7.2.686 [id number] [facility] 2019-12-20 08:48:31 2020-01-23 15:03:17 Telemedici ne Visit Shila Hale [facility] 1.2.840.114 350.1.13.10 4.2.7.2.686 [id number] 2020-01-23 14:45:00 2020-01-23 14:45:00 Outpatient R NORBERTO ABBOTT [facility] [id number] [facility] 2020-01-23 07:56:45 2020-01-23 08:11:45 Telemedici ne Visit RoxyTuan [facility] 1..114 350.1.13.10 4.2.7.2.686 [id number] [facility] 2020-01-23 07:56:45 2020-01-23 08:11:45 Telemedici ne Visit RxoyTuan peñaoscar [facility] 1..114 350.1.13.10 4.2.7.2.686 [id number] 2019-12-20 15:30:00 2019-12-20 15:30:00 Outpatient R SHILA HALE [facility] [id number] [facility] 2019-12-07 14:00:00 2019-12-07 14:00:00 Outpatient R LYNN DE PAZ [facility] [id number] [facility] 2019-12-01 00:00:00 2019-12-01 00:00:00 Case Management Lynn De Paz [facility] ..114 350.1.13.10 4.2.7.2.686 [id number] [facility] 2019-11-24 14:00:00 2019-11-24 14:00:00 Outpatient R YLNN DE PAZ [facility] [id number] [facility] 2019-11-07 14:57:00 2019-11-07 23:59:00 Hospital Encounter Shila Hale [facility] 1.114 350.1.13.10 4.2.7.2.686 [id number] [facility] 2019-11-07 14:55:00 2019-11-07 14:56:00 Hospital Encounter RoxyTuan peñaoscar [facility] 12840.114 350.1.13.10 4.2.7.2.686 [id number] [facility] 2019-11-07 14:55:26 2019-11-07 14:55:26 Outpatient R NORBERTO ABBOTT [facility] [id number] [facility] 2019-10-27 13:41:07 2019-10-27 23:59:00 Outpatient R NORBERTO ABBOTT [facility] [id number] [facility] 2019-10-27 13:41:07 2019-10-27 23:59:00 Outpatient R NORBERTO EKATERINASKYLAR [facility] [id number] [facility] 2019-10-27 13:41:00 2019-10-27 23:59:00 Hospital Encounter RoxyTuan ekaterinaoscar [facility] [place] [facility] [address]114 350.1.13.10 4.2.7.2.686 [id number] [facility] 2019-10-27 12:21:17 2019-10-27 14:26:20 Office Visit RoxyTuan ekaterinaskylar [facility] .840.114 350.1.13.10 4.2.7.2.686 [id number] [facility] 2019-10-20 00:00:00 2019-10-20 00:00:00 Telephone Mehnaz Stovall [facility] 12.840.114 350.1.13.10 4.2.7.2.686 [id number] [facility] 2019-10-19 00:00:00 2019-10-19 00:00:00 Orders Only Doctor Unassigned, [place] [facility] 1.2.840.114 350.1.13.10 4.2.7.2.686 [id number] [facility] 2019-08-24 09:56:49 2019-08-24 09:56:00 Outpatient R KAREN NOE [facility] [id number] [facility] 2019-05-25 13:22:00 2019-05-25 15:48:00 [facility] 1.2.840.114 350.1.13.10 4.2.7.2.686 [id number] [facility] 2019-05-25 00:00:00 2019-05-25 00:00:00 Orders Only Doctor Unassigned, [place] [facility] 1.2.840.114 350.1.13.10 4.2.7.2.686 [id number] [facility] 2019-04-28 00:00:00 2019-04-28 00:00:00 Telephone Mehnaz Stovall [facility] 1.2.840.114 350.1.13.10 4.2.7.2.686 [id number] [facility] 2019-04-27 13:46:00 2019-04-27 16:51:00 Hospital Encounter Shila Hale [facility] ([facility]) 1.2.840.114 350.1.13.10 4.2.7.2.686 [id number] [facility] 2019-04-27 00:00:00 2019-04-27 00:00:00 Orders Only Doctor Unassigned, [place] [facility] 1.2.840.114 350.1.13.10 4.2.7.2.686 [id number] [facility] 2019-04-21 00:00:00 2019-04-21 00:00:00 Telephone [place] [facility] [place] 1.2.840.114 350.1.13.10 4.2.7.2.686 [id number] [facility] 2019-04-15 12:46:10 2019-04-15 13:16:10 Office Visit Shila Hale [facility] 1..840.114 350.1.13.10 4.2.7.2.686 [id number] [facility] 2019-01-13 12:14:13 2019-01-13 23:59:00 Outpatient LYNN MARIEE [facility] [id number] [facility] Results Test Description Test Time Test Comments Results Result Comments Source Laceration Repair 07:11:24 Des Hodges DO ? ? 04/29/2025 ?2:12 AMLaceration Repair Date/Time: 04/29/2025 2:11 AM Performed by: Des Hodges DOAuthorized by: Des Hodges DO ?Consent: ?Consent obtained: ?Verbal ?Consent given by: ?Parent ?Risks discussed: ?Infection, pain and poor cosmetic result ?Alternatives discussed: ?No treatmentUniversal protocol: ?Patient identity confirmed: ?Verbally with patientAnesthesia: ?Anesthesia method: ?NoneLaceration details: ?Location: ?Scalp ?Scalp location: ?[place] ?Length (cm): ?1Pre-procedure details: ?Preparation: ?Patient was prepped and draped in usual sterile fashionExploration: ?Contaminated: no ?Treatment: ?Wound cleansed with: peroxide. ?Amount of cleaning: ?Standard ?Debridement: ?None ?Undermining: ?NoneSkin repair: ?Repair method: ?Ebro ?Number of rajat: ?1Approximation: ?Approximation: ?CloseRepair type: ?Repair type: ?SimplePost-procedure details: ?Dressing: ?Open (no dressing) [facility] HIP, 2 VIEWS, UNILATERAL 19:08:00 *.*.*.*.*.*.*.*.*.*.*.* .*.*FINAL*.*.*.*.*.*.*. [...] MELANY VASQUEZ MD /Signed/ MELANY VASQUEZ MD [facility] DEXA-AXIAL 15:30:00 *.*.*.*.*.*.*.*.*.*.*.* .*.*FINAL*.*.*.*.*.*.*. *.*.*.*.*.*.*.*History: 56-year-old woman [...] FABIÁN SEGUNDO MD /Signed/ FABIÁN SEGUNDO MD [facility] MISC TEST, FROZEN 12:57:00 [facility] [...] alone for adiagnosis of malignancy..Methodology : Siemens Advia Prescreenaur CA 27.29chemiluminescent immunoassay was used. Results obtainedwith different assay methods or kits cannot be usedinterchangeably...Madalyn HICKS [facility] BREAST ULTRASOUND LIMITED 18:10:00 History: ?Per patient [...] and right axillary ultrasound is unremarkable. ? [facility] DIGITAL DIAGNOSTIC MAMMOGRAM, UNILATERAL 18:10:00 History: ?Per [...] and right axillary ultrasound is unremarkable. ? [facility] Notes Date/Time Note Provider Source 2025-04-29 00:40:49 PT to bed 6 BIBA with a chief complaint of a mechanical fall SP drinking ETOH at the bar and slipped in a hole and fell backwards. PT arrived in a C-collar in place and blood on the back of her hair. PT denies N/V, LOC, blood thinners, and was reported to be ambulatory on scene. Ravinder Trujillo RN [facility] - Health 2025-04-29 00:37:00 Associated Order(s): Laceration Repair [facility] Emergency Department Note Patient Name: Cindy Malin Date of : 1955 69 year old female Treatment Room: [facility] Primary Care Physician: Ryan Duke Patient Escorted by: Self [9] Mode of Arrival: EMS - [place] [47] EMS Treatment Prior to ED Arrival: Travel and Exposure Screening: Symptoms Does patient have any of these symptoms?: (not recorded) Exposure Screening Has patient had contact with someone with a communicable disease in the last month?: (not recorded) Diseases exposed to:: (not recorded) Is Patient ?: (not recorded) Exposure Date: (not recorded) Chief Complaint: Chief Complaint Patient presents with Fall History of Present Illness: History of Present Illness The patient presents to the emergency room for a head injury. He reports a fall while attempting to enter his car, resulting in a backward impact to the back of his head. He is uncertain about any bleeding from the wound. He describes the area as sore but does not report any other injuries. His neck, arms, legs, and back are all unaffected. He admits to consuming 2 shots and 2 beers between 4:00 PM and his arrival at the hospital. SOCIAL HISTORY The patient consumed 2 shots and 2 beers between 4:00 PM and his arrival at the hospital. HPI Past Medical History/Immunizations: Past Medical History: Diagnosis Date Anxiety Arthritis Breast cancer Fatty liver GERD (gastroesophageal reflux disease) Localized osteoporosis without current pathological fracture Nausea Unspecified hypothyroidism Tetanus received in last 5 years: Unknown Childhood immunizations: Up-to-date Allergies: Allergies Allergen Reactions Codeine Rash Morphine Itching With morphine pump Past Social History: Tobacco Use Former; Cigarettes: Quit 09/21/2012 Smokeless Tobacco: Never used smokeless tobacco. Alcohol Use Yes. Comments: only once weekly Drug Use No. Sexual Activity Not sexually active. Past Surgical History: Past Surgical History: Procedure Laterality Date ARTHROSCOPIC LYSIS OF JOINT ADHESIONS 06/18/2011 Surgeon:KEVIN THOMASON; Location:[facility] AUGMENTATION MAMMOPLASTY 04/18/2013 Surgeon: Rose Lee MD; Location: [facility] BREAST CAPSULOTOMY 04/18/2013 Surgeon: Rose Lee MD; Location: [facility] CERVICAL EPIDURAL STEROID INJECTION Right 04/14/2018 Surgeon: Shila Hale MD; Location: [facility] CERVICAL EPIDURAL STEROID INJECTION Left 02/28/2019 Surgeon: Shila Hale MD; Location: [facility] SECTION CHONDROPLASTY 06/18/2011 Surgeon:KEVIN THOMASON; Location:[facility] CONTROLLED INTUBATION 07/27/2013 easy mask with oral airway, DLx1 with mac 3, grade 1 view, 7.0 ETT at 20 cm EXPLORATORY LAPAROTOMY HIP CLOSED REDUCTION WITH PERCUTANEOUS PINNING Left 04/21/2016 Surgeon: Michelle Jorge; Location: [facility] HIP HARDWARE REMOVAL Left 10/31/2016 Surgeon: Mirta Junior; Location: [facility] HIP HARDWARE REMOVAL Left 03/31/2017 Surgeon: Carlos De León MD; Location: [facility] HYSTERECTOMY 12/2002 KNEE ARTHROSCOPY 06/18/2011 Surgeon:KEVIN THOMASON; Location:[facility] MASTOPEXY 07/27/2013 Surgeon: Rose Lee MD; Location: [facility] MEDIAN NERVE BRANCH BLOCK Left 04/27/2019 Surgeon: Shila Hale MD; Location: [facility] NIPPLE RECONSTRUCTION 10/25/2013 Surgeon: Rose Lee MD; Location: [facility] LOCATION OTHER left knee OTHER left breast OTHER morphine pain pump insert and removed 2006 OU EXCIS LESION EYELID, BOTH EYES Left 12-08-14 Dr. Kinney - Minor procedure PEDICLE LATISIMUS DORSI FLAP BREAST RECONSTRUCTION 12/13/2012 Surgeon: Rose Lee MD; Location: [facility] RADIOFREQUENCY THERMOCOAGULATION Left 05/25/2019 Surgeon: Shila Hale MD; Location: [facility] SACROILIAC JOINT INJECTION 11/10/2012 Surgeon: Jose Alfredo Francois MD; Location: [facility] SACROILIAC JOINT INJECTION 11/12/2012 SACROILIAC JOINT INJECTION 05/11/2013 SACROILIAC JOINT INJECTION 05/11/2013 Surgeon: Jose Alfredo Francois MD; Location: [facility] LOCATION SACROILIAC JOINT INJECTION Bilateral 12/29/2013 Surgeon: Jose Alfredo Francois MD; Location: [facility] LOCATION SACROILIAC JOINT INJECTION Bilateral 08/31/2014 Surgeon: Jose Alfredo Francois MD; Location: [facility] LOCATION SACROILIAC JOINT INJECTION Bilateral 01/03/2015 Surgeon: Jose Alfredo Francois MD; Location: [facility] LOCATION SACROILIAC JOINT INJECTION Right 10/19/2019 Surgeon: Shila Hale MD; Location: [facility] SIMPLE MASTECTOMY Left 2006 STRABISMUS SURGERY (SHX) Bilateral 1967 SYNOVECTOMY 06/18/2011 Surgeon:KEVIN THOMASON; Location:[facility] 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 Neck: No visible bleeding or abnormalities noted. ED Triage Vitals [04/29/25 0044] Weight 58.5 kg (129 lb) Actual or estimated Actual Height 1.448 m (4' 9") BP 128/81 Pulse 88 Resp 18 Temp 36.7 ?C (98 ?F) Temp source Oral SpO2 99 % Measured on Room air Physical Exam Radiology: CT Head wo contrast Preliminary Result EXAM: CT HEAD WO CONTRAST, CT CERVICAL SPINE WO CONTRAST HISTORY: Fall. COMPARISON: None TECHNIQUE: Axial images of the head and cervical spine were obtained without IV contrast. Coronal and sagittal reformats were constructed. FINDINGS: HEAD: Scalp hematoma is noted at the vertex without underlying calvarial fracture. The ventricles and cerebral sulci are normal in caliber and configuration. No hydrocephalus, midline shift or pathological extra-axial fluid collection is present. The basal cisterns are unremarkable. There is no acute intracranial hemorrhage or significant mass effect. No significant parenchymal attenuation abnormality. The diaz-white matter differentiation is preserved. The mastoid air cells and paranasal air sinuses are clear. The calvarium and central skull base are unremarkable. CERVICAL SPINE: Straightening of the cervical lordosis. The vertebral bodies are normal in height. Grade 1 anterolisthesis of C3 on C4, C4 on C5 and C5 on C6. No acute fracture or dislocation is present. Normal alignment of the craniocervical junction and atlantoaxial joint. Multilevel degenerative changes, severe at C5-C6. The prevertebral soft tissues are unremarkable. The visualized cervical soft tissues and visualized lung apices are unremarkable. IMPRESSION No acute intracranial hemorrhage or mass effect. Vertex scalp hematoma without underlying calvarial fracture. No acute fracture or traumatic malalignment of the cervical spine. Preliminary Report Dictated by Resident: Sohail Delgado CT Cervical spine wo contrast Preliminary Result EXAM: CT HEAD WO CONTRAST, CT CERVICAL SPINE WO CONTRAST HISTORY: Fall. COMPARISON: None TECHNIQUE: Axial images of the head and cervical spine were obtained without IV contrast. Coronal and sagittal reformats were constructed. FINDINGS: HEAD: Scalp hematoma is noted at the vertex without underlying calvarial fracture. The ventricles and cerebral sulci are normal in caliber and configuration. No hydrocephalus, midline shift or pathological extra-axial fluid collection is present. The basal cisterns are unremarkable. There is no acute intracranial hemorrhage or significant mass effect. No significant parenchymal attenuation abnormality. The diaz-white matter differentiation is preserved. The mastoid air cells and paranasal air sinuses are clear. The calvarium and central skull base are unremarkable. CERVICAL SPINE: Straightening of the cervical lordosis. The vertebral bodies are normal in height. Grade 1 anterolisthesis of C3 on C4, C4 on C5 and C5 on C6. No acute fracture or dislocation is present. Normal alignment of the craniocervical junction and atlantoaxial joint. Multilevel degenerative changes, severe at C5-C6. The prevertebral soft tissues are unremarkable. The visualized cervical soft tissues and visualized lung apices are unremarkable. IMPRESSION No acute intracranial hemorrhage or mass effect. Vertex scalp hematoma without underlying calvarial fracture. No acute fracture or traumatic malalignment of the cervical spine. Preliminary Report Dictated by Resident: Sohail Delgado Lab Results: Lab Results - No data to display EKG: If EKG completed, see Procedure Note. Orders and Treatments: Orders Placed This Encounter Procedures CT Head wo contrast CT Cervical spine wo contrast No orders of the defined types were placed in this encounter. First Provider Eval: ED Events None ED COURSE Diagnosis/Impression as of 04/29/25 0211 Fall, initial encounter Injury of head, initial encounter Laceration of scalp, initial encounter Results Procedures: Laceration Repair Date/Time: 04/29/2025 2:11 AM Performed by: Des Hodges DO Authorized by: Des Hodges DO Consent: Consent obtained: Verbal Consent given by: Parent Risks discussed: Infection, pain and poor cosmetic result Alternatives discussed: No treatment [place] protocol: Patient identity confirmed: Verbally with patient Anesthesia: Anesthesia method: None Laceration details: Location: Scalp Scalp location: [place] Length (cm): 1 Pre-procedure details: Preparation: Patient was prepped and draped in usual sterile fashion Exploration: Contaminated: no Treatment: Wound cleansed with: peroxide. Amount of cleaning: Standard Debridement: None Undermining: None Skin repair: Repair method: [place] Number of rajat: 1 Approximation: Approximation: Close Repair type: Repair type: Simple Post-procedure details: Dressing: Open (no dressing) MDM: Assessment & Plan Initial Assessment: Fell backwards, hit back of head. Significant bleeding. Differential Diagnosis: - Head injury: Fall backwards, hit head. Plan: Head scan, clean wound, possible staple. ED Course: Head scan performed Wound cleaned Final Assessment: Head scan performed, wound cleaned, stapled.. Clinical Impression: - Head injury Disposition: Discharge: Home, head scan normal, wound cleaned, possible staple. Medical Decision Making Amount and/or Complexity of Data Reviewed Radiology: ordered. Flowsheet Documentation: Scoring Tools: No data recorded Disposition/Condition: ED Disposition ED Disposition Discharge Condition Stable Comment -- Discharge Medications: Patient's Medications START taking these medications No medications on file CONTINUE taking these medications which have NOT CHANGED ALBUTEROL (PROAIR HFA) 90 MCG/ACTUATION INHALER Inhale 2 Puffs every 4 (four) hours as needed for Wheezing or Shortness of Breath. CHOLECALCIFEROL, VITAMIN D3, (VITAMIN D3) 5,000 UNIT TABLET Take by mouth. CYANOCOBALAMIN (VITAMIN B-12) 1,000 MCG TABLET Take by mouth. DIAZEPAM 2 MG TABLET Take 1 tablet by mouth 2 (two) times daily as needed for Anxiety. FLUTICASONE 50 MCG/ACTUATION NASAL SPRAY Use 1 [place] in each nostril 2 (two) times daily. IBUPROFEN (MOTRIN ORAL) Take 400 mg by mouth. MAGNESIUM ASPARTATE/VIT B6/ZN (ZINC MAGNESIUM ASPARTATE ORAL) Take by mouth. MELOXICAM 7.5 MG TABLET Take 1 tablet by mouth 2 (two) times daily as needed (Pain). ZOLPIDEM 10 MG TABLET Take 1 tablet by mouth at bedtime. START taking Modified Medications as Prescribed No medications on file STOP taking these medications No medications on file Follow-up: Contact information for follow-up [facility] Specialty: PHYSICIAN [employer]DER [address] [place] [id number] [facility] Specialty: Emergency Medicine [address] [place] [id number] Instructions: If symptoms worsen as documented in the discharge, For suture removal Electronically signed by: Des Hodges DO 04/29/25211 [facility]2024-11-06 00:00:00 [facility]2024-10-23 00:00:00 [facility]
[2025-06-26 18:01] VITALS: BMI 25.7
--- NOTE | 2025-06-26 18:38 | RAD REPORT ---
EXAMINATION: TWO VIEW CHEST XR CLINICAL INDICATION: COPD exacerbation TECHNIQUE: 2 views of the chest was performed. COMPARISON: 12/09/2024 FINDINGS: The lungs are hyperexpanded suggesting COPD. The heart is upper limit of normal in size. No displaced fractures evident. Small hiatal hernia. Left-sided surgical clips. IMPRESSION: COPD is suspected without acute finding identified.
[2025-06-26 19:47] LABS: Absolute Lymphocytes (CBC) 2.0 K/uL (0.7-4.9); Hematocrit 47.8 % (36.0-45.0); Hemoglobin 15.8 g/dL (12.0-15.0); MCH 31.1 pg (27.0-35.0); MCHC 33.1 g/dL (32.0-36.0); MCV 93.8 fL (80-100); MPV 9.2 fL (7.6-11.3); Nucleated RBC Absolute Count 0.0 (0-0); Nucleated Red Blood Cells % 0.1 % (0-0); RBC Red Blood Cell Count 5.09 M/uL (3.86-4.86); White Blood Count 9.60 thou/uL (4.3-10.9)
[2025-06-26] MEDS: METHYLPREDNISOLONE 40 MG INJ IV SCH (19:49)
[2025-06-26] MEDS: Levofloxacin500mg IV 500 MG/100 ML BAG IV SCH (19:49)
[2025-06-26] MEDS: ALBUTEROL 2.5 MG/3 ML NEB SOL NEB SCH (20:06)
[2025-06-26] MEDS: IPRATROPIUM BROM 0.5MG/2.5ML NEB SCH (20:06)
[2025-06-26 20:14] LABS: ALT/SGPT 37.0 U/L (13-56); AST/SGOT 20.0 U/L (15-37); Albumin 3.3 g/dL (3.4-5.0); Albumin/Globulin Ratio 0.9 (1.1-1.8); Alkaline Phosphatase 145.0 U/L (45-117); Anion Gap 9.6 mEq/L (5.0-15.0); BUN Blood Urea Nitrogen 19.0 mg/dL (7-18); Globulin 3.5 g/dL (2.3-3.5); Glucose Level 115.0 mg/dL (74-106); Magnesium 2.0 mg/dL (1.6-2.4); NT PRO-BNP 17.0 pg/mL (<125); Potassium 3.6 mEq/L (3.5-5.1); Thyroid Stimulating Hormone 1.23 uIU/mL (0.358-3.740); Troponin High Sensitivity 4.8 pg/mL (<58.9)
[2025-06-26] MEDS: POTASSIUM CL SA 10 MEQ TAB PO ONE (21:14)
[2025-06-26] MEDS: ENOXAPARIN 40 MG/0.4 ML SQ SCH (21:14)
[2025-06-26] MEDS: BENZONATATE 100 MG CAP PO PRN (21:33)
--- NOTE | 2025-06-26 23:42 | HP ---
Date of Admission: 06/26/2025 Chief Complaint: Not feeling good. History Of Present Illness: This is a 69-year-old female patient, who saw me last week which 3 weeks' history of cough, congestion, and to start with she had some sore throat and fever. The patient had Medrol Dosepak at home that she used it and completed last dose last week when she saw me. She was prescribed azithromycin, benzonatate, and sample of Breztri inhaler was given to her. The patient came into office today, not feeling good and with worsening of cough, congestion, and now coughing up greenish colored mucus and body ache. She had diarrhea once this morning. She is also complaining of having shortness of breath with daily activity and some wheezing. After I saw her today, decision was made to admit her to the hospital for further evaluation and management of this problem. Allergies: TO CODEINE AND MORPHINE. BOTH MEDICATIONS CAUSING RASH AND ITCHING. Medications: Benzonatate 100 mg 4 times a day as needed, Breztri inhaler 2 puffs by mouth 2 times a day, Claritin 10 mg daily. Review of Systems: Respiratory: As mentioned above. GI: As mentioned above. All other systems reviewed and negative. Past Medical History: Significant for allergic rhinitis, impaired fasting glucose, COPD, hypertension, hyperlipidemia, left breast cancer, osteoarthritis at multiple sites and osteoporosis, compression fracture of L2 spine. Past Surgical History: Left mastectomy in 2007 due to breast cancer, left hip surgery, right knee surgery, and morphine pump placement with subsequent removal. Family History: Father , had myocardial infarction, hypertension, and stroke. Mother , had cirrhosis of liver due to alcohol. Social History: Positive for smoking on a daily basis. Denies any alcohol use. Physical Examination: Vital Signs: Blood pressure 130/78, pulse 84, temperature 98.1, respiratory rate 17, weight 119.4 pounds, height 59 inches, oxygen saturation 79% on room air. General: Awake, alert, oriented, not in distress. HEENT: Head atraumatic, normocephalic. Conjunctivae nonerythematous. Sclerae white. Mouth, no thrush or edema noted. Ears/Nose, no mass, lesion, discharge noted. Neck: Supple. No JVD, lymph nodes, bruit, thyromegaly noted. Lungs: Bilateral good equal air entry with presence of wheezing scattered in all the lung li and the patient was noted to have very frequent coughing. Not using accessory muscles of respiration. Heart: Normal heart sounds, no murmur or gallop. Abdomen: Soft, bowel sounds normal. No guarding, rigidity, tenderness, mass, hepatosplenomegaly, distention, or bruit noted. Extremities: No leg edema. No calf tenderness. Skin: No rash, ulcer, cellulitis. Lymphatics: No lymph node enlargement in neck, supraclavicular, infraclavicular region. Neuro: No focal neurological deficit. Chest: Unremarkable. External Genitalia: Deferred. Rectal: Deferred. Laboratory Data: WBC 9.6, hemoglobin 15.8, platelets 275, sodium 140, potassium 3.6, chloride 106, bicarb 28, BUN 19, creatinine 0.56, glucose 115. Liver function tests unremarkable. TSH 1.230. Chest x-ray, no acute intrathoracic changes Impression: 1. Acute exacerbation of COPD. 2. Acute bronchitis. 3. Impaired fasting glucose. 4. Allergic rhinitis. 5. Hypertension. 6. Hyperlipidemia. 7. Left breast cancer. 8. Osteoarthritis, multiple sites. 9. Osteoporosis. 10. Acute on chronic respiratory failure with hypoxia. Plan: Admit the patient to hospital for further evaluation and management of this problem. The patient is appropriate for inpatient and is expected to spend 2 midnights in hospital. For her acute exacerbation of COPD, we will go ahead and treat her with IV steroids, IV antibiotic which is Levaquin, and nebulizer treatment and oxygen 2 L/minute. DVT prophylaxis will be given using Lovenox. The patient's oxygen saturation was 79% on room air at office today and she informed me today that she does have oxygen concentrator for home use, which was prescribed to her sometime in September, but she has not been using it and she had portable oxygen which she returned it because she was not using it. Today is the first time that she informed me about this. So while in the hospital, we will evaluate her need for home oxygen and assist her accordingly. For allergic rhinitis, no need for further intervention at this time. For impaired fasting glucose, no need for further intervention at this time. Hypertension will not require any further intervention. We will monitor blood pressure. If necessary, start medication for it. Code status was discussed with her and the patient is full code as per decision made by her. Total time spent 60 minutes including evaluation and management resulting in this hospital admission, making arrangements for hospital admission, review of last week's office visit record. I will see her tomorrow morning for followup. SIS/EVA Voice ID: [id number] MTDD
[2025-06-27 05:26] LABS: Anion Gap 10.9 mEq/L (5.0-15.0); BUN Blood Urea Nitrogen 17.0 mg/dL (7-18); Glucose Level 258.0 mg/dL (74-106); Potassium 3.9 mEq/L (3.5-5.1)
[2025-06-27] MEDS: INSULIN REGULAR (HUMAN) 100 UNIT/ML SQ SCH (07:30)
[2025-06-27] MEDS: POTASSIUM CL SA 10 MEQ TAB PO ONE (09:37)
--- NOTE | 2025-06-27 11:04 | RAD REPORT ---
EXAMINATION: CT CHEST WITHOUT CONTRAST CLINICAL INDICATION: COPD TECHNIQUE: Routine CT scan of the chest without intravenous contrast. One or more of the following do se reduction techniques were used: Automated exposure control, adjustment of the mA and/or kV according to patient size, and/or iterative reconstruction. Unless otherwise specified, incidental fi ndings do not require dedicated imaging follow-up. COMPARISON: 08/29/2024 FINDINGS: LOWER NECK: Visualized thyroid gland and soft tissues are normal. LUNGS: Mild diffuse COPD is present. No pulmonary nodule, mass or infiltrate. PLEURA: No pleural effusion. No pneumothorax. . MEDIASTINUM AND LYMPH NODES: No mediastinal mass or fluid collection. Normal size mediastinal, hilar, and axillary lymph nodes. OSSEOUS STRUCTURES AND CHEST WALL: Intact. Left breast implant with left axillary tyesha dissection cl ips. UPPER ABDOMEN: Unremarkable IMPRESSION: Mild diffuse COPD. No pulmonary nodule, mass or infiltrate. Examination limited by lack of IV contrast.
--- NOTE | 2025-06-27 21:02 | PN ---
Date of Progress Note: 06/27/2025 Subjective: The patient was seen this morning for followup. No new complaints or problems reported. She was sleeping, easily arousable. Overall, her cough, congestion, and wheezing she feels better compared to yesterday. No new complaints or problems reported by her overnight. Objective: Vital Signs: Reviewed. HEENT: Unremarkable. Lungs: Bilateral good equal air entry with presence of wheezing scattered in all lung li, but overall better today than yesterday. Not using any accessory muscles of respiration. Heart: Sounds normal. Abdomen: Soft. Bowel sounds normal. No guarding, rigidity, tenderness, distention. Extremities: No leg edema. Laboratory Data: Upon admission, WBC 9.6, hemoglobin 15.8, platelets 275, sodium 140, potassium 3.6, chloride 106, bicarb 28, BUN 19, creatinine 0.56, glucose 115. Liver function tests unremarkable. TSH 1.230. Today, sodium 139, potassium 3.9, chloride 108, bicarb 24, BUN 17, creatinine 0.68, glucose 258. Chest x-ray, no acute intrathoracic changes. Impression: 1. Acute exacerbation of chronic obstructive pulmonary disease. 2. Hyperglycemia. Plan: The patient's glucose level is elevated. We will put on fingerstick blood sugar check before each meal and at bedtime with mild sliding scale and hemoglobin A1c was ordered. CT scan of the chest without contrast was ordered today. We will continue current antibiotic, steroid, nebulizer treatment, and Lovenox. I will see her tomorrow for followup and possible discharge to go home tomorrow. Details were discussed with the patient. SIS/MODL Voice ID: [id number] Report ID: [id number] DANTE
[2025-06-27] MEDS: ACETAMINOPHEN 500 MG TAB PO PRN (21:23)
[2025-06-28 03:00] VITALS: O2SAT 96
[2025-06-28 05:16] LABS: Anion Gap 11.3 mEq/L (5.0-15.0); BUN Blood Urea Nitrogen 13.0 mg/dL (7-18); Glucose Level 150.0 mg/dL (74-106); Potassium 4.3 mEq/L (3.5-5.1)
[2025-06-28 12:30] VITALS: BP 154/77; TEMP 98.1
--- NOTE | 2025-06-29 03:13 | DS ---
Date of Discharge: 06/28/2025 Disposition: Discharged to go home. Physical Examination: HEENT: Unremarkable. Lungs: Clear to auscultation. No wheezing. No rales. Heart: Sounds normal. Abdomen: Soft. Bowel sounds normal. No guarding, rigidity, tenderness, distention. Extremities: No leg edema. Laboratory Data: Upon admission, WBC 9.6, hemoglobin 15.8, platelets 275, sodium 140, potassium 3.6, chloride 106, bicarb 28, BUN 19, creatinine 0.56, glucose 115. Liver function tests unremarkable. TSH 1.230. Chest x-ray, no acute intrathoracic changes. Today, sodium 142, potassium 4.3, chloride 110, bicarb 25, BUN 13, creatinine 0.52, glucose 150, hemoglobin A1c was 5.7 from yesterday. Discharge Diagnoses: 1. Acute exacerbation of COPD. 2. Acute bronchitis. 3. Impaired fasting glucose. 4. Allergic rhinitis. 5. Hypertension. 6. Hyperlipidemia. 7. Left breast cancer. 8. Osteoarthritis, multiple sites. 9. Osteoporosis. 10. Acute on chronic respiratory failure with hypoxia. Discharge Medications And Instructions: 1. Do not smoke. 2. Trelegy inhaler, take 1 puff by mouth once a day, rinse mouth with water after its use. 3. Levofloxacin 500 mg, take 1 tablet by mouth daily for five days, take with food. 4. Prednisone 10 mg, take 3 tablets by mouth daily in morning after breakfast for three days, then 2 tablets by mouth daily in morning after breakfast for three days, then 1 tablet by mouth daily in morning after breakfast for three days, then stop. 5. Benzonatate 100 mg, take 1 capsule by mouth four times a day as needed for cough. Prescriptions for Trelegy, Levofloxacin, Prednisone and Benzonatate will be sent to your [facility] from Dr. Reina's office Follow up with Dr. Reina next week Hospital Course: This is a 69-year-old pleasant female patient, who was admitted to the hospital with cough, congestion, shortness of breath, and wheezing. Please see dictated H and P for more information. After the patient was evaluated at office, decision was made to admit her to hospital with acute exacerbation of COPD. Arrangements were made for direct admission and the patient was admitted to the hospital. After she was admitted, routine blood work was done. Chest x-ray was done, which came back negative for any acute changes. The patient was started on nebulizer treatment, IV steroid, and IV antibiotics. Overall, her condition improved significantly. CAT scan of the chest was done yesterday, which showed no evidence of any pneumonia. Chest x- ray and CAT scan of the chest has shown changes of COPD. Today, the patient's condition was stable. She was feeling much better and was discharged to go home with above-mentioned medications and instructions. Today, we did check her oxygen saturation at rest on room air, which was 95% and with ambulation 6- minute walk test, also her oxygen saturation remained at 95%. Total time spent 40 minutes. SIS/EVA Voice ID: [id number] Report ID: [id number] DANTE
== END 2025-06-28 13:01 | disposition home or self-care (01) | DRG 189 ==
LOC: 2ND 16:16
PROVIDERS: ADMIT Internal Medicine; ATTEND Internal Medicine
DX: J96.21 Acute and chronic respiratory failure with hypoxia (principal); J44.1 Chronic obstructive pulmonary disease with (acute) exacerbation; J44.0 Chronic obstructive pulmonary disease with (acute) lower respiratory infection; J20.9 Acute bronchitis, unspecified; M06.9 Rheumatoid arthritis, unspecified; I10 Essential (primary) hypertension; E78.5 Hyperlipidemia, unspecified; M19.09 Primary osteoarthritis, other specified site; C50.912 Malignant neoplasm of unspecified site of left female breast; M81.0 Age-related osteoporosis without current pathological fracture; R73.01 Impaired fasting glucose; R73.9 Hyperglycemia, unspecified; Z88.5 Allergy status to narcotic agent; Z90.12 Acquired absence of left breast and nipple
CPT/HCPCS: 36415; 71046; 71250; 80048; 80053; 82947; 83036; 83735; 83880; 84443; 84484; 85025; 94640; J1650; J1815; J2919; J7613; J7644